=== PATIENT | male | born 1965 | race American Indian/Alaskan Native ===

== ENCOUNTER 2017-04-18 12:26 | Emergency (ER) | payer SELFPAY ==
[2017-04-18 13:23] LABS: Hematocrit 31.4 % (35.5-45.6); Hemoglobin 10.7 gm/dl (11.8-15.2); Mean Corpuscular HGB Conc 34 % (32-34); Mean Corpuscular Hemoglobin 33 pg (28-32); Mean Corpuscular Volume 96 fl (84-94); Platelet Count 244 K/mm3 (140-440); Red Blood Count 3.29 M/mm3 (3.65-5.03); Red Cell Distribution Width 13.6 % (13.2-15.2)
[2017-04-18 13:35] LABS: BUN/Creatinine Ratio 14; Blood Urea Nitrogen 13 mg/dL (9-20); Calcium 9.1 mg/dL (8.4-10.2); Hemolysis Index 1
[2017-04-18 15:12] LABS: Bilirubin,Urine NEG (Negative); Blood,Urine NEG (Negative); Color,Urine Yellow (Yellow); Hyaline Casts,Urine 1 /LPF; Mucus,Urine FEW /HPF; Nitrite,Urine NEG (Negative); Protein,Urine <15 mg/dL mg/dL (Negative); Urobilinogen,Urine < 2.0 mg/dL (<2.0)
[2017-04-18] MEDS ORDERED: TORADOL IV ONE (16:36)
[2017-04-18] MEDS ORDERED: DILAUDID IV ONE (16:37)
--- NOTE | 2017-04-18 16:37 | Emergency Department Report ---
ED General Adult HPI - General Chief complaint: Pain General Stated complaint: BODY NUMBNESS,TINGLING Time Seen by Provider: 04/18/17 16:27 Source: patient, RN notes reviewed, old records reviewed Mode of arrival: Ambulatory Limitations: No Limitations - History of Present Illness Initial comments: This is a 51-year-old male. He is previously evaluated by me in the past. Has a past medical history of gout, hypertension. He does not have a primary care doctor. Patient presents to the ER with a complaint of nontraumatic left wrist pain, right foot pain, and left foot pain. This has been present since Wednesday. His pain is sharp and achy. It is associated with some swelling but no redness or fever. He reports that he ate heavy and spicy ribs a few days prior to the swelling and pain, and thinks that his gout is acting up in multiple joints. He denies headache, neck pain, chest pain, abdominal pain or shortness of breath. To me he makes no complaint of tingling, numbness, weakness, or change in sensation. Patient denies sore throat, rectal pain, urinary symptoms as well as skin rash. 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 Patient given hydromorphone in the past without issue. -: Gradual Location: left, right, upper extremity, lower extremity Radiation: non-radiation Quality: aching Consistency: constant Improves with: medication, rest Worsens with: movement Associated Symptoms: denies: confusion, chest pain, cough, diaphoresis, fever/ chills, headaches, loss of appetite, malaise, nausea/vomiting, rash, seizure, shortness of breath, syncope, weakness - Related Data Home Medications Medication Instructions Recorded Confirmed Last Taken Aspirin EC [Aspirin Enteric Coated 325 mg PO QDAY 08/22/14 08/22/14 08/19/14 TAB] Losartan [Cozaar] 50 mg PO QDAY 08/22/14 08/23/14 08/22/14 Labetalol 5 mg PO BID 08/23/14 08/23/14 08/23/14 Previous Rx's Medication Instructions Recorded Last Taken Type NIFEdipine XL [Procardia Xl] 30 mg PO QDAY #30 tablet 06/03/14 Unknown Rx Meclizine [Antivert] 25 mg PO TID PRN #30 tablet 06/13/14 08/22/14 Rx Ketorolac [Toradol] 10 mg PO Q6H PRN #20 tablet 05/23/15 Unknown Rx oxyCODONE [Roxicodone TAB] 5 mg PO Q6HR PRN #10 tablet 05/23/15 Unknown Rx Acetaminophen [Tylenol Arthritis] 650 mg PO Q6HR PRN #30 tablet.er 04/18/17 Unknown Rx Ketorolac [Toradol] 10 mg PO Q6H PRN #20 tablet 04/18/17 Unknown Rx oxyCODONE [Roxicodone] 5 mg PO Q6HR PRN #15 tablet 04/18/17 Unknown Rx Allergies Allergy/AdvReac Type Severity Reaction Status Date / Time morphine Allergy Hives Verified 05/22/15 17:47 ED Review of Systems ROS: Stated complaint: BODY NUMBNESS,TINGLING Other details as noted in HPI ED Past Medical Hx - Past Medical History Hx Hypertension: Yes (FOR 2 MTHS) Hx Diabetes: Yes (FOR 5 YRS, NO MEDS) Hx Liver Disease: No Hx Renal Disease: No Hx Arthritis: Yes Hx Seizures: No Hx Asthma: No Additional medical history: GOUT - Surgical History Additional Surgical History: R. hand repair - Social History Smoking Status: Current Every Day Smoker Substance Use Type: Alcohol - Medications Home Medications: Home Medications Medication Instructions Recorded Confirmed Last Taken Type NIFEdipine XL [Procardia Xl] 30 mg PO QDAY #30 tablet 06/03/14 08/23/14 Unknown Rx Meclizine [Antivert] 25 mg PO TID PRN #30 tablet 06/13/14 08/23/14 08/22/14 Rx Aspirin EC [Aspirin Enteric Coated 325 mg PO QDAY 08/22/14 08/22/14 08/19/14 History TAB] Losartan [Cozaar] 50 mg PO QDAY 08/22/14 08/23/14 08/22/14 History Labetalol 5 mg PO BID 08/23/14 08/23/14 08/23/14 History Ketorolac [Toradol] 10 mg PO Q6H PRN #20 tablet 05/23/15 Unknown Rx oxyCODONE [Roxicodone TAB] 5 mg PO Q6HR PRN #10 tablet 05/23/15 Unknown Rx Acetaminophen [Tylenol Arthritis] 650 mg PO Q6HR PRN #30 tablet.er 04/18/17 Unknown Rx Ketorolac [Toradol] 10 mg PO Q6H PRN #20 tablet 04/18/17 Unknown Rx oxyCODONE [Roxicodone] 5 mg PO Q6HR PRN #15 tablet 04/18/17 Unknown Rx ED Physical Exam - General Limitations: No Limitations General appearance: alert, in no apparent distress - Head Head exam: Present: atraumatic, normocephalic - Eye Eye exam: Present: normal appearance, EOMI. Absent: nystagmus - ENT ENT exam: Present: normal exam, normal orophraynx, mucous membranes moist, normal external ear exam - Neck Neck exam: Present: normal inspection, full ROM - Respiratory Respiratory exam: Present: normal lung sounds bilaterally. Absent: respiratory distress - Cardiovascular Cardiovascular Exam: Present: normal rhythm, tachycardia, normal heart sounds. Absent: systolic murmur, diastolic murmur, rubs, gallop - GI/Abdominal GI/Abdominal exam: Present: soft, normal bowel sounds. Absent: distended, tenderness, guarding, rebound, rigid, pulsatile mass - Rectal Rectal exam: Present: deferred - Extremities Exam Extremities exam: Present: normal inspection, full ROM, tenderness (there is mild tenderness to the right lateral and medial malleolus. There is minimal swelling to the right ankle. There is no redness. Passive range of motion is painful, but intact. Active range of motion is intact on the right foot. Left wrist also mildly diffusely tender with swelling. Full range of motion actively to the wrist. The compartments are soft. 2+ pulses noted in the bilateral upper and lower extremities. Sensation intact to light touch, pinprick, proprioception in the bilateral upper and lower extremities.), normal capillary refill. Absent: pedal edema, joint swelling, calf tenderness - Back Exam Back exam: Present: normal inspection, full ROM. Absent: tenderness, CVA tenderness (R), paraspinal tenderness, vertebral tenderness - Neurological Exam Neurological exam: Present: alert, oriented X3, CN II-XII intact, normal gait, other (Extraocular movements intact. Tongue midline. No facial droop. Facial sensation intact to light touch in the V1, V2, V3 distribution bilaterally. 5 and 5 strength in 4 extremities.. Sensation is intact to light touch in 4 extremities.). Absent: motor sensory deficit - Psychiatric Psychiatric exam: Present: normal affect, normal mood - Skin Skin exam: Present: warm, dry, intact, normal color. Absent: rash ED Course Vital Signs 04/18/17 04/18/17 04/18/17 12:41 17:02 17:03 Temperature 98.2 F Pulse Rate 116 H 95 H Respiratory 18 18 18 Rate Blood Pressure 181/97 Blood Pressure 166/100 [Left] O2 Sat by Pulse 97 100 Oximetry - Reevaluation(s) Reevaluation #1: 04/18/17 18:06 Patient requesting colchicine. I instructed the patient that I did not think he would derive any therapeutic benefit from it, but he is fairly insistent that he has benefited from it in the past, even being out of the 72 hour window. ED Medical Decision Making - Lab Data Result diagrams: 04/18/17 13:06 04/18/17 13:06 Vital Signs 04/18/17 04/18/17 04/18/17 12:41 17:02 17:03 Temperature 98.2 F Pulse Rate 116 H 95 H Respiratory 18 Rate Blood Pressure 181/97 Blood Pressure 166/100 [Left] O2 Sat by Pulse 97 100 Oximetry Lab Results 04/18/17 04/18/17 04/18/17 Range/Units 13:06 13:06 13:06 WBC 10.4 (4.5-11.0) K/mm3 RBC 3.29 L (3.65-5.03) M/mm3 Hgb 10.7 L (11.8-15.2) gm/dl Hct 31.4 L (35.5-45.6) % MCV 96 H (84-94) fl MCH 33 H (28-32) pg MCHC 34 (32-34) % RDW 13.6 (13.2-15.2) % Plt Count 244 (140-440) K/mm3 Sodium 138 (137-145) mmol/L Potassium 4.1 (3.6-5.0) mmol/L Chloride 98.7 (98-107) mmol/L Carbon Dioxide 24 (22-30) mmol/L Anion Gap 19 mmol/L BUN 13 (9-20) mg/dL Creatinine 0.9 (0.8-1.5) mg/dL Estimated GFR > 60 ml/min BUN/Creatinine Ratio 14 % Glucose 124 H (75-100) mg/dL Uric Acid 5.5 (3.5-7.6) mg/dL Calcium 9.1 (8.4-10.2) mg/dL Urine Color (Yellow) Urine Turbidity (Clear) Urine pH (5.0-7.0) Ur Specific [place] (1.003-1.030) Urine Protein (Negative) mg/dL Urine Glucose (UA) (Negative) mg/dL Urine Ketones (Negative) mg/dL Urine Blood (Negative) Urine Nitrite (Negative) Urine Bilirubin (Negative) Urine Urobilinogen (<2.0) mg/dL Ur Leukocyte Esterase (Negative) Urine WBC (Auto) (0.0-6.0) /HPF Urine RBC (Auto) (0.0-6.0) /HPF U Epithel Cells (Auto) (0-13.0) /HPF Hyaline Casts /LPF Urine Mucus /HPF 04/18/17 Range/Units 14:58 WBC (4.5-11.0) K/mm3 RBC (3.65-5.03) M/mm3 Hgb (11.8-15.2) gm/dl Hct (35.5-45.6) % MCV (84-94) fl MCH (28-32) pg MCHC (32-34) % RDW (13.2-15.2) % Plt Count (140-440) K/mm3 Sodium (137-145) mmol/L Potassium (3.6-5.0) mmol/L Chloride (98-107) mmol/L Carbon Dioxide (22-30) mmol/L Anion Gap mmol/L BUN (9-20) mg/dL Creatinine (0.8-1.5) mg/dL Estimated GFR ml/min BUN/Creatinine Ratio % Glucose (75-100) mg/dL Uric Acid (3.5-7.6) mg/dL Calcium (8.4-10.2) mg/dL Urine Color Yellow (Yellow) Urine Turbidity Clear (Clear) Urine pH 5.0 (5.0-7.0) Ur Specific [place] 1.016 (1.003-1.030) Urine Protein <15 mg/dl (Negative) mg/dL Urine Glucose (UA) Neg (Negative) mg/dL Urine Ketones Neg (Negative) mg/dL Urine Blood Neg (Negative) Urine Nitrite Neg (Negative) Urine Bilirubin Neg (Negative) Urine Urobilinogen < 2.0 (<2.0) mg/dL Ur Leukocyte Esterase Neg (Negative) Urine WBC (Auto) 1.0 (0.0-6.0) /HPF Urine RBC (Auto) 1.0 (0.0-6.0) /HPF U Epithel Cells (Auto) 1.0 (0-13.0) /HPF Hyaline Casts 1 /LPF Urine Mucus Few /HPF - Medical Decision Making Differential diagnosis, including but not limited to: Polyarthritis, pseudo gout , pseudogout Assessment and plan: 51-year-old male with polyarthritis. There is no redness, pus or streaking. There is no fever. Has active and passive range of motion intact with soft compartments and intact pulses. Based on this history and physical exam, septic joint very unlikely, patient has no risk factors for septic joint, he has no mucous membrane symptoms and no rash. He is medicated with hydromorphone and Toradol, his tachycardia improved, and he is noted to be sleeping and resting comfortably in his stretcher. Patient was extensively counseled on need to avoid dietary triggers, and he will need to follow up with outpatient rheumatology. His hypertension improved, and he can follow up with an outpatient primary care doctor for this as well. Symptoms have been present for greater than 72 hours, therefore no indication for colchicine. Critical care attestation.: If time is entered above; I have spent that time in minutes in the direct care of this critically ill patient, excluding procedure time. ED Disposition Clinical Impression: Polyarthritis Disposition: [id number] TO HOME OR SELFCARE Is pt being admited?: No Does the pt Need Aspirin: No Condition: Good Instructions: Osteoarthritis (ED), Acute Gouty Arthritis (ED) Additional Instructions: Avoid consumption of heavy, spicy foods, alcohol, foods high in salt content. If taking oxycodone for pain, do not drive, consume alcohol, or make important decisions. Follow up with a primary care doctor or tax services specialist within the next 2 weeks for the multiple painful joints. Dr. Boyce is a local primary care doctor. For the patient's convenience, numerous other local rheumatology specialists have been listed. Please note that the patient's blood pressure was very elevated, and this needs to be followed up by primary care doctor within the next month. Long-term complications of hypertension and elevated blood pressure includes stroke, heart attack, disability, , paralysis, permanent loss of quality of life. He is return to the ER right away with hip pain, worsened pain, migration of pain, weakness, numbness, unsteady gait, intractable nausea or vomiting, confusion, inability to tolerate liquid feeds. Prescriptions: Acetaminophen [Tylenol Arthritis] 650 mg PO Q6HR PRN #30 tablet.er PRN Reason: Pain Ketorolac [Toradol] 10 mg PO Q6H PRN #20 tablet PRN Reason: Pain oxyCODONE [Roxicodone] 5 mg PO Q6HR PRN #15 tablet PRN Reason: Pain Referrals: PRIMARY CARE, [Primary Care Provider] - 3-5 Days IRMA BOYCE MD [Staff Physician] - 3-5 Days PRAMOD SPRINGER MD [Referring] - 3-5 Days KAYDEN REESE MD [Referring] - 3-5 Days MIYA TIAN MD [Referring] - 3-5 Days KEL JOAQUIN MD [Referring] - 3-5 Days TASHA WARE MD [Referring] - 3-5 Days IRINA BENTON DO [Referring] - 3-5 Days
[2017-04-18] MEDS ORDERED: COLCRYS PO ONE ×2 (17:00→18:06)
[2017-04-18 17:03] VITALS: BP 166/100
== END 2017-04-18 18:50 | disposition home or self-care (01) ==
LOC: ED 12:26
DX: M13.0 Polyarthritis, unspecified (principal); M10.9 Gout, unspecified; I10 Essential (primary) hypertension; E11.9 Type 2 diabetes mellitus without complications; F17.200 Nicotine dependence, unspecified, uncomplicated; Z88.5 Allergy status to narcotic agent
CPT/HCPCS: 36415; 80048; 81001; 84550; 85027; 96374; 96375; 99283; J1170; J1885

== ENCOUNTER 2017-09-10 05:14 | Emergency (ER) | payer SELFPAY ==
[2017-09-10 05:59] LABS: Basophils % (Auto) 0.6 % (0.0-1.8); Eosinophils # (Auto) 0.3 K/mm3 (0.0-0.4); Eosinophils % (Auto) 4.5 % (0.0-4.3); Hematocrit 34.3 % (35.5-45.6); Hemoglobin 11.5 gm/dl (11.8-15.2); Lymphocytes # (Auto) 2.8 K/mm3 (1.2-5.4); Lymphocytes % (Auto) 41.9 % (13.4-35.0); Mean Corpuscular HGB Conc 34 % (32-34); Mean Corpuscular Hemoglobin 32 pg (28-32); Mean Corpuscular Volume 96 fl (84-94); Monocytes # (Auto) 0.5 K/mm3 (0.0-0.8); Monocytes % (Auto) 6.8 % (0.0-7.3); Platelet Count 216 K/mm3 (140-440); Red Blood Count 3.57 M/mm3 (3.65-5.03); Red Cell Distribution Width 14.6 % (13.2-15.2)
[2017-09-10 06:04] LABS: Alanine Aminotransferase 24 units/L (7-56); Albumin 4.3 g/dL (3.9-5); BUN/Creatinine Ratio 12; Blood Urea Nitrogen 13 mg/dL (9-20); Calcium 9.3 mg/dL (8.4-10.2); Hemolysis Index 1; Lipase 51 units/L (13-60)
[2017-09-10 06:42] LABS: Bacteria,Urine 1+ /HPF (Negative); Bilirubin,Urine NEG (Negative); Blood,Urine NEG (Negative); Color,Urine Yellow (Yellow); Mucus,Urine FEW /HPF; Urobilinogen,Urine < 2.0 mg/dL (<2.0)
[2017-09-10] MEDS ORDERED: TETRACAINE 0.5% ONE (09:01)
[2017-09-10] MEDS ORDERED: FUL-GLO OP ONE ×2 (09:01→09:03)
[2017-09-10] MEDS ORDERED: TETRACAINE 0.5% OS ONE (09:03)
[2017-09-10] MEDS ORDERED: NORCO 5/325 PO ONE (09:04)
[2017-09-10] MEDS ORDERED: APRESOLINE IV ONE (09:04)
--- NOTE | 2017-09-10 09:15 | Emergency Department Report ---
HPI - General Chief Complaint: Abdominal Pain Time Seen by Provider: 09/10/17 08:53 - HPI HPI: 52-year-old male presents to the emergency department with 2 different complaints. First, the patient has a burning sensation and/or discomfort to the left eye and thinks that he got some wood in the eye yesterday. He was unloading some crates and some wood when he dropped it and he felt something go up into his eye at that time. He had some mild discomfort at the time but over night last night the pain intensified. He says he feels like he has difficulty closing his eye and there is some swelling to the eyelid. He denies any vision change, bleeding, discharge. The patient's second complaint is some left-sided abdominal pain and swelling. This has been going on since this morning. He denies any nausea, vomiting, fever, diarrhea, constipation or dysuria. He has not taken anything for her symptoms prior to presentation. Patient has a history of hypertension and diabetes but does not take any medications. He does present with very elevated blood pressure. No recent travel or sick contacts at home. He does not have a PCP. ED Past Medical Hx - Past Medical History Hx Hypertension: Yes (FOR 2 MTHS) Hx Diabetes: Yes (FOR 5 YRS, NO MEDS) Hx Liver Disease: No Hx Renal Disease: No Hx Arthritis: Yes Hx Seizures: No Hx Asthma: No Additional medical history: GOUT - Surgical History Additional Surgical History: R. hand repair - Social History Smoking Status: Current Every Day Smoker Substance Use Type: Alcohol - Medications Home Medications: Home Medications Medication Instructions Recorded Confirmed Last Taken Type NIFEdipine XL [Procardia Xl] 30 mg PO QDAY #30 tablet 06/03/14 08/23/14 Unknown Rx Meclizine [Antivert] 25 mg PO TID PRN #30 tablet 06/13/14 08/23/14 08/22/14 Rx Aspirin EC [Aspirin Enteric Coated 325 mg PO QDAY 08/22/14 08/22/14 08/19/14 History TAB] Losartan [Cozaar] 50 mg PO QDAY 08/22/14 08/23/14 08/22/14 History Labetalol 5 mg PO BID 08/23/14 08/23/14 08/23/14 History Ketorolac [Toradol] 10 mg PO Q6H PRN #20 tablet 05/23/15 Unknown Rx oxyCODONE [Roxicodone TAB] 5 mg PO Q6HR PRN #10 tablet 05/23/15 Unknown Rx Acetaminophen [Tylenol Arthritis] 650 mg PO Q6HR PRN #30 tablet.er 04/18/17 Unknown Rx Ketorolac [Toradol] 10 mg PO Q6H PRN #20 tablet 04/18/17 Unknown Rx oxyCODONE [Roxicodone] 5 mg PO Q6HR PRN #15 tablet 04/18/17 Unknown Rx Cephalexin [Keflex] 1,000 mg PO Q12HR #20 cap 09/10/17 Unknown Rx Erythromycin [Erythromycin Ophth 1 applicatio OS TID #1 tube 09/10/17 Unknown Rx Oint] HYDROcodone/ACETAMINOPHEN [[place] 1 each PO Q8H PRN #10 tablet 09/10/17 Unknown Rx 5-325 Tablet] ED Review of Systems ROS: Stated complaint: ABD PAIN Other details as noted in HPI Comment: All other systems reviewed and negative Constitutional: denies: chills, fever Eyes: eye pain. denies: eye discharge, vision change ENT: denies: ear pain, throat pain Respiratory: denies: cough, shortness of breath, wheezing Cardiovascular: denies: chest pain, palpitations Gastrointestinal: abdominal pain. denies: vomiting Genitourinary: denies: urgency, dysuria Musculoskeletal: denies: back pain, joint swelling, arthralgia Skin: denies: rash, lesions Neurological: denies: headache, weakness, paresthesias Physical Exam - Physical Exam Vital Signs: Vital Signs 09/10/17 09/10/17 09/10/17 05:24 08:50 08:58 Temperature 98.1 F Pulse Rate 100 H Respiratory 22 17 Rate Blood Pressure 174/115 O2 Sat by Pulse 100 99 98 Oximetry ED Course Vital Signs 09/10/17 09/10/17 09/10/17 05:24 08:50 08:58 Temperature 98.1 F Pulse Rate 100 H Respiratory 22 17 Rate Blood Pressure 174/115 O2 Sat by Pulse 100 99 98 Oximetry ED Medical Decision Making - Lab Data Result diagrams: 09/10/17 05:30 09/10/17 05:30 Critical care attestation.: If time is entered above; I have spent that time in minutes in the direct care of this critically ill patient, excluding procedure time. ED Disposition Clinical Impression: Left eye pain Abdominal pain Qualifiers: Abdominal location: unspecified location Qualified Code(s): R10.9 - Unspecified abdominal pain Hypertension Qualifiers: Hypertension type: essential hypertension Qualified Code(s): I10 - Essential ( primary) hypertension Disposition: TO HOME OR SELFCARE Is pt being admited?: No Condition: Stable Instructions: Hypertension (ED), Eye Pain (ED), Abdominal Pain (ED) Additional Instructions: Please follow up with a primary care physician regarding your elevated blood pressure and to establish care and get a physical examination done. I've also given your referral for a few different ophthalmologists to follow up regarding your left eye pain and vision. Return to the emergency Department with any worsening of your symptoms or any acute distress. Please try and stay away from foods that are high in salt, caffeinated products to help with your blood pressure. I'm starting you on a blood pressure medication called Norvasc/amlodipine that is to be taken once daily. Keep a blood pressure log. You have been prescribed a medication that is sedating and therefore should not be taken prior to driving, working, and responsible for children and in no way should be mixed with alcohol of any quantity. Prescriptions: Cephalexin [Keflex] 1,000 mg PO Q12HR #20 cap Erythromycin [Erythromycin Ophth Oint] 1 applicatio OS TID #1 tube HYDROcodone/ACETAMINOPHEN [[place] 5-325 Tablet] 1 each PO Q8H PRN #10 tablet PRN Reason: Pain , Severe (7-10) Referrals: MARILYN SALDAÑA MD [Staff Physician] - WENDY MATA MD [Staff Physician] - LEANNA ANNA ROY MD [Staff Physician] - 2-3 Days FLOR FREY MD [Staff Physician] - 2-3 Days [facility] [Outside] - 2-3 Days Time of Disposition: 12:02
[2017-09-10] MEDS ORDERED: ATIVAN ONE (10:11)
[2017-09-10] MEDS ORDERED: ATIVAN IV ONE (10:15)
--- NOTE | 2017-09-10 10:31 | Cat Scan Report ---
CT head without contrast: Axial images demonstrates normal intracranial anatomy.. The ventricles are normal in size, contour, and position. No focal lesions. No hemorrhage. No extra-axial collection. The visualized bones are unremarkable. Mild areas of mucoperiosteal thickening identified in the visualized posterior portion of the left maxillary sinus as well as in both ethmoid sinuses. Compared to the prior exam in May 2014 the maxillary inflammation appears slightly worse with no significant changes in the sphenoid sinuses. The intracranial findings are unchanged. Impression: 1. Normal intracranial scan 2. Chronic paranasal inflammatory changes.
--- NOTE | 2017-09-10 10:45 | Cat Scan Report ---
CT abdomen and pelvis with contrast: Left sided abdominal pain. Transverse images were obtained from the lower chest to the ischium following IV contrast administration. Coronal and sagittal 2-D reformatted images included. The visualized lung bases are clear. The abdominal organs appear unremarkable. There is a 13 mm circumscribed cyst in the superior right kidney. The urinary tract is not otherwise remarkable nor are the retroperitoneal organs. The abdominal aorta is normal in size and contour. The unopacified bowel and mesentery appear normal. The appendix is visualized. No inflammatory changes identified. No free fluid. Images of the pelvis are generally unremarkable. There is severe narrowing of the L4-5 disc with bony obliteration anteriorly and posteriorly at the articular margins. Severe degenerative disease is present involving the right hip with subchondral erosions. Lesser degenerative changes are noted in the left hip. Impressions: 1. No significant intra-abdominal disease identified. 2. Severe degenerative L4-5 and right hip changes.
[2017-09-10] MEDS ORDERED: ERYTHROMYCIN OPHTH OINT OU ONE (11:00)
[2017-09-10 11:10] LABS: Bilirubin,Urine NEG (Negative); Blood,Urine NEG (Negative); Color,Urine Straw (Yellow); Mucus,Urine FEW /HPF; Protein,Urine <15 mg/dL mg/dL (Negative); Urobilinogen,Urine < 2.0 mg/dL (<2.0); WBC,Urine < 1.0 /HPF (0.0-6.0)
[2017-09-10 11:17] LABS: Amphetamine Screen,Urine PRESUMPTIVE NEGATIVE; Benzodiazepines Screen,Urine PRESUMPTIVE NEGATIVE; Cannabinoid Screen,Urine PRESUMPTIVE NEGATIVE; Cocaine Screen,Urine PRESUMPTIVE NEGATIVE; Methadone Screen,Urine PRESUMPTIVE NEGATIVE; Opiate Screen,Urine PRESUMPTIVE NEGATIVE
[2017-09-10] MEDS ORDERED: TETRACAINE 0.5% OU ONE (11:44)
[2017-09-10 12:12] VITALS: BP 151/84
== END 2017-09-10 12:30 | disposition home or self-care (01) ==
LOC: ED 05:14
DX: H57.12 Ocular pain, left eye (principal); R10.9 Unspecified abdominal pain; I10 Essential (primary) hypertension; E11.9 Type 2 diabetes mellitus without complications; M19.90 Unspecified osteoarthritis, unspecified site; F17.200 Nicotine dependence, unspecified, uncomplicated; Z79.82 Long term (current) use of aspirin
CPT/HCPCS: 36415; 70450; 74177; 80053; 80307; 81001; 83690; 83735; 84443; 85025; 93005; 93010; 96374; 96375; 99285; J0360; J2060; Q9967

== ENCOUNTER 2018-04-01 19:52 | Inpatient (IN) | payer SELFPAY ==
[2018-04-01] MEDS ORDERED: ASPIRIN PO ONE (20:28)
[2018-04-01] MEDS ORDERED: DILAUDID IV ONE (20:45)
[2018-04-01] MEDS ORDERED: LOPRESSOR IV ONE (20:46)
--- NOTE | 2018-04-01 20:50 | Emergency Department Report ---
HPI - General Chief Complaint: Dizziness Time Seen by Provider: 04/01/18 20:32 - HPI HPI: 52-year-old male presents to the emergency department with complaint of a headache and some blurry vision along with some dizziness that started about 2 PM this afternoon. The dizziness is as if he will pass out but he has not had any episodes of passing out. The headache is towards the top of his head. He feels like it is difficult to focus with his vision. The patient also says that he had some chest pain earlier but the pain resolved but his chest still "feels funny." He was dropped off by some people at work to be seen. He did not take anything for her symptoms prior to presentation. No recent travel or sick contacts at home. The patient has a past medical history of hypertension, diet-controlled diabetes, gout. He does present with some elevated blood pressure and says he did not take his amlodipine today. He does not have a primary care physician. ED Past Medical Hx - Past Medical History Hx Hypertension: Yes (FOR 2 MTHS) Hx Diabetes: Yes (FOR 5 YRS, NO MEDS) Hx Liver Disease: No Hx Renal Disease: No Hx Arthritis: Yes Hx Seizures: No Hx Asthma: No Additional medical history: GOUT - Surgical History Past Surgical History?: Yes Additional Surgical History: R. hand repair - Social History Smoking Status: Current Every Day Smoker Substance Use Type: Alcohol - Medications Home Medications: Home Medications Medication Instructions Recorded Confirmed Last Taken Type amLODIPine [Norvasc] 5 mg PO DAILY #30 tab 09/10/17 04/01/18 Unknown Rx Multivit-Min/Iron Fum/Folic AC 1 each PO DAILY 04/01/18 04/01/18 Unknown History [Monocaps Tablet] ED Review of Systems ROS: Stated complaint: HBP Other details as noted in HPI Constitutional: denies: chills, fever Eyes: denies: eye pain, vision change ENT: denies: ear pain, throat pain Respiratory: denies: cough, shortness of breath Cardiovascular: chest pain. denies: palpitations Gastrointestinal: denies: abdominal pain, vomiting Genitourinary: denies: dysuria, discharge Musculoskeletal: denies: back pain, arthralgia Skin: denies: rash, lesions Neurological: headache, other (dizziness, lightheadedness) Physical Exam - Physical Exam Vital Signs: Vital Signs 04/01/18 19:58 Temperature 97.8 F Pulse Rate 112 H Respiratory 18 Rate Blood Pressure 187/92 O2 Sat by Pulse 99 Oximetry Physical Exam: GENERAL: The patient is well-developed well-nourished. HEENT: Normocephalic. Atraumatic. Patient has moist mucous membranes. EYES: Extraocular motions are intact. Pupils are equal and reactive to light bilaterally. NECK: Supple. Trachea is midline. CHEST/LUNGS: Clear to auscultation. There is no respiratory distress noted. HEART/CARDIOVASCULAR: Regular. There is mild tachycardia. There is no obvious murmur. ABDOMEN: Abdomen is soft, nontender. Patient has normal bowel sounds. There is no abdominal distention. SKIN: Skin is warm and dry. NEURO: The patient is awake, alert, and oriented. The patient is cooperative. The patient has no focal neurologic deficits. The patient has normal speech. Cranial nerves II through XII grossly intact. No pronator drift. MUSCULOSKELETAL: There is no tenderness or deformity. There is no limitation range of motion. There is no evidence of acute injury. ED Course Vital Signs 04/01/18 19:58 Temperature 97.8 F Pulse Rate 112 H Respiratory 18 Rate Blood Pressure 187/92 O2 Sat by Pulse 99 Oximetry ED Medical Decision Making - Lab Data Result diagrams: 04/01/18 20:46 04/01/18 20:46 - EKG Data -: EKG Interpreted by Me EKG shows normal: sinus rhythm, axis, intervals, QRS complexes, ST-T waves Rate: tachycardia (104 bpm) - EKG Data When compared to previous EKG there are: no significant change Interpretation: unchanged when compared t (09/11/17) - Radiology Data Radiology results: report reviewed, image reviewed interpreted by me: Chest x-ray does not show any pneumothorax, pleural effusion, pneumonia or obvious focal consolidation. PROCEDURE: CT HEAD/BRAIN WO CON TECHNIQUE: Computerized tomography of the head was performed without contrast material. HISTORY: headache COMPARISON: No prior studies are available for comparison. FINDINGS: Skull and scalp: Normal. Paranasal sinuses: Normal. Ventricles and subarachnoid spaces: Normal. Cerebrum: No evidence of hemorrhage, acute infarction or mass . Cerebellum and brainstem: No evidence of hemorrhage, acute infarction or mass. Vasculature: Normal. Comments: None. IMPRESSION: Normal Examination Transcribed By: [facility] [place] Dictated By: GABRIELLA SHAH Electronically Authenticated By: GABRIELLA SHAH Signed Date/Time: 04/01/18 2428 PROCEDURE: CT ANGIO CHEST TECHNIQUE: Computerized tomographic angiography of the chest was performed after the IV injection of iodinated nonionic contrast including image processing. The image data was postprocessed using 2- dimensional multiplanar reformatted (MPR) and 3-dimensional (MIP and/or volume rendered) techniques. HISTORY: CP, elevated dimer COMPARISON: No prior studies are available for comparison. FINDINGS: Heart and pericardium: Normal. Thoracic aorta: Normal. Pulmonary vasculature: Normal. Lymph nodes: No enlarged thoracic lymph nodes. Lungs: Normal. Pleural space: No effusion, thickening, or pneumothorax. Musculoskeletal structures: No significant abnormality. Upper abdominal structures: No significant abnormality. IMPRESSION: Normal Examination - Medical Decision Making Patient presents with a headache, blurry vision, dizziness/lightheadedness, and some atypical chest discomfort. EKG does not show any ST elevation SD. CT of the head did not show any bleed, shift, mass, ischemia, or any other acute process. Chest x-ray did not show any pleural effusions, pneumonia, focal consolidation, pneumothorax, or any other acute process. Patient's labs have been unremarkable including negative troponins 2 thus far, but he did have a slightly elevated and equivocal d-dimer. For this reason a CT angiography of the chest was done that did not show any pulmonary embolism, dissection, or any acute process. The patient says that he has never had a stress test or full cardiac workup. The patient will be admitted to the hospital for further evaluation and treatment and was except for admission by the hospitalist, Dr. Bya. - Differential Diagnosis SD, PE, costochondritis, migraine, subarachnoid, tension headache, vertigo Critical Care Time: No Critical care attestation.: If time is entered above; I have spent that time in minutes in the direct care of this critically ill patient, excluding procedure time. ED Disposition Clinical Impression: Atypical chest pain, Dizziness Headache Qualifiers: Headache type: unspecified Headache chronicity pattern: unspecified pattern Intractability: not intractable Qualified Code(s): R51 - Headache Hypertension Qualifiers: Hypertension type: essential hypertension Qualified Code(s): I10 - Essential (primary) hypertension Disposition: OP ADMIT IP TO THIS HOSP Is pt being admited?: Yes Condition: Fair Instructions: Chest Pain (ED), Hypertension (ED) Referrals: ZORAN HOOD MD [Primary Care Provider] - 3-5 Days Time of Disposition: 23:45 - Assessment Assessment Interval: Baseline - Level of Consciousness 1a. Level of Consciousness: alert/keenly responsive - LOC Questions 1b. LOC Questions: answers both correctly - LOC Command 1c. LOC Commands: performs tasks correctly - Best Gaze 2. Best Gaze: normal - Visual 3. Visual: no visual loss - Facial Palsy 4. Facial Palsy: normal symmetrical movement - Motor Arm 5b. Motor Arm Right: no drift 5a. Motor Arm Left: no drift - Motor Leg 6b. Motor Leg Right: no drift 6a. Motor Leg Left: no drift - Limb Ataxia 7. Limb Ataxia: absent - Sensory 8. Sensory: normal - Best Language 9. Best Language: no aphasia - Dysarthria 10. Dysarthria: normal - Extinction and Inattention 11. Extinction/Inattention: no abnormality - Scoring Total Score: 0 Stroke Severity: No Stroke Symptoms
[2018-04-01 21:03] LABS: Basophils % (Auto) 0.4 % (0.0-1.8); Eosinophils % (Auto) 0.1 % (0.0-4.3); Hematocrit 30.8 % (35.5-45.6); Hemoglobin 10.9 gm/dl (11.8-15.2); Lymphocytes # (Auto) 0.9 K/mm3 (1.2-5.4); Lymphocytes % (Auto) 13.8 % (13.4-35.0); Mean Corpuscular HGB Conc 36 % (32-34); Mean Corpuscular Volume 100 fl (84-94); Monocytes # (Auto) 0.5 K/mm3 (0.0-0.8); Monocytes % (Auto) 7.7 % (0.0-7.3); Platelet Count 172 K/mm3 (140-440); Red Blood Count 3.08 M/mm3 (3.65-5.03); Red Cell Distribution Width 13.2 % (13.2-15.2)
[2018-04-01 21:15] LABS: BUN/Creatinine Ratio 10; Blood Urea Nitrogen 11 mg/dL (9-20); Calcium 8.9 mg/dL (8.4-10.2); Hemolysis Index 255
[2018-04-01 21:30] LABS: INR 0.88 (0.87-1.13)
[2018-04-01 21:31] LABS: Partial Thromboplastin Time 27.1 Sec. (24.2-36.6)
--- NOTE | 2018-04-01 22:12 | XRay Report ---
FINAL REPORT PROCEDURE: XR CHEST 1V AP TECHNIQUE: Chest radiograph anteroposterior view. CPT 34447 HISTORY: Chest pain COMPARISON: No prior studies are available for comparison. FINDINGS: Heart: Normal. Mediastinum/Vessels: Normal. Lungs/Pleural space: No infiltrate, effusion, or pneumothorax. Bony thorax: No acute osseous abnormality. Life support devices: None. IMPRESSION: No radiographic evidence of acute cardiopulmonary abnormality.
--- NOTE | 2018-04-01 22:44 | Cat Scan Report ---
FINAL REPORT PROCEDURE: CT HEAD/BRAIN WO CON TECHNIQUE: Computerized tomography of the head was performed without contrast material. HISTORY: headache COMPARISON: No prior studies are available for comparison. FINDINGS: Skull and scalp: Normal. Paranasal sinuses: Normal. Ventricles and subarachnoid spaces: Normal. Cerebrum: No evidence of hemorrhage, acute infarction or mass . Cerebellum and brainstem: No evidence of hemorrhage, acute infarction or mass. Vasculature: Normal. Comments: None. IMPRESSION: Normal Examination
[2018-04-01] MEDS ORDERED: ANTIVERT PO ONE (22:48)
--- NOTE | 2018-04-01 22:48 | Cat Scan Report ---
FINAL REPORT PROCEDURE: CT ANGIO CHEST TECHNIQUE: Computerized tomographic angiography of the chest was performed after the IV injection of iodinated nonionic contrast including image processing. The image data was postprocessed using 2-dim ensional multiplanar reformatted (MPR) and 3-dimensional (MIP and/or volume rendered) techniques. HISTORY: CP, elevated dimer COMPARISON: No prior studies are available for comparison. FINDINGS: Heart and pericardium: Normal. Thoracic aorta: Normal. Pulmonary vasculature: Normal. Lymph nodes: No enlarged thoracic lymph nodes. Lungs: Normal. Pleural space: No effusion, thickening, or pneumothorax. Musculoskeletal structures: No significant abnormality. Upper abdominal structures: No significant abnormality. IMPRESSION: Normal Examination
[2018-04-01] MEDS ORDERED: TYLENOL PO PRN (23:30)
[2018-04-01] MEDS ORDERED: ZOFRAN IV PRN (23:30)
[2018-04-01] MEDS ORDERED: APRESOLINE IV PRN (23:30)
[2018-04-01] MEDS ORDERED: SODIUM CHLORIDE FLUSH SYRINGE 10 ML IV PRN (23:30)
[2018-04-01] MEDS ORDERED: ATIVAN IV PRN ×2 (23:33)
--- NOTE | 2018-04-01 23:35 | History and Physical Report ---
History of Present Illness Date of examination: 04/01/18 History of present illness: 52-year-old man with a history of hypertension, diabetes comes to the emergency room with complaints of chest pain that started today. Pain is in the left chest which she described as something stuck inside his chest,intermittent every 30 minutes, intensity 5/10, no radiation. Admits to nausea vomiting, shortness of breath, no diaphoresis or palpitation. Also complained of dizziness, hasn't taken his antihypertensive in 3 days Review of systems Constitutional: no weight loss, chills, fever Ears, eyes, nose, mouth and throat: no nasal congestion, no nasal discharge, no sinus pressure, no vision change, no red eye. Neck: No neck pain or rigidity. Cardiovascular: no palpitations Respiratory: no cough, shortness of breath Gastrointestinal: no hematochezia, abdominal pain Genitourinary : no frequency , no hematuria Musculoskeletal: no joint swelling or muscle ache Integumentary: no rash, no pruritis Neurological: no parathesias, no focal weakness Endocrine: no cold or heat intolerance, no polyuria or polydipsia Hematologic/Lymphatic: no easy bruising, no easy bleeding, no gland swelling Allergic/Immunologic: no urticaria, no angioedema. PAST MEDICAL HISTORY: hypertension, diabetes PAST SURGICAL HISTORY: hand SOCIAL HISTORY: Drinks 4 beers/night, no drugs, +tobacco FAMILY HISTORY: Hypertension Medications and Allergies Allergies Allergy/AdvReac Type Severity Reaction Status Date / Time morphine Allergy Hives Verified 09/10/17 05:23 Home Medications Medication Instructions Recorded Confirmed Last Taken Type RX: Multivit-Min/Iron Fum/Folic AC 1 each PO DAILY 04/01/18 04/01/18 Unknown History [Monocaps Tablet] RX: LORazepam [Ativan] 1 mg PO BID PRN #20 tablet 04/03/18 Unknown Rx RX: amLODIPine [Norvasc] 5 mg PO DAILY #30 tab 04/03/18 Unknown Rx RX: amLODIPine [Norvasc] 10 mg PO DAILY #30 tablet 04/03/18 Unknown Rx Active Meds: Active Medications Acetaminophen (Tylenol) 650 mg PO Q4H PRN PRN Reason: Pain MILD(1-3)/Fever >100.5/ROMERO Enoxaparin Sodium (Lovenox) 30 mg SUB-Q QDAY ROSY Hydralazine HCl (Apresoline) 5 mg IV Q6H PRN PRN Reason: Hypertension Ondansetron HCl (Zofran) 4 mg IV Q8H PRN PRN Reason: Nausea And Vomiting Sodium Chloride (Sodium Chloride Flush Syringe 10 Ml) 10 ml IV BID ROSY Sodium Chloride (Sodium Chloride Flush Syringe 10 Ml) 10 ml IV PRN PRN PRN Reason: LINE FLUSH Exam - Physical Exam Narrative exam: General Apperance: The patient lying in bed, breathing comfortable HEENT: Normocephalic, atraumatic. Pupils equally round and reactive to light, EOMI, no sclericterus or JVD or thyromegaly or nodule. , no carotid bruit, mucous membranes moist, no exudate or erythema Heart: S1-S2, regular is rhythm Lungs: Clear to auscultation bilaterally, breathing comfortable Abdomen: Positive bowel sounds, soft, nontender, nondistended, no organomegaly Extremities: No edema cyanosis clubbing Skin: no rash, nodule, warm and dry Neuro: cranial nerves 2-12 intact, speech is fluent, motor/sensory intact - Constitutional Vitals: Temp Pulse Resp BP Pulse Ox 97.8 F 95 H 19 168/88 97 04/01/18 19:58 04/01/18 22:45 04/01/18 22:45 04/01/18 22:45 04/01/18 22:45 Results - Labs CBC & Chem 7: 04/03/18 02:58 04/03/18 02:58 Labs: Abnormal lab results 04/01/18 04/01/18 04/01/18 Range/Units 20:46 20:46 20:46 RBC 3.08 L (3.65-5.03) M/mm3 Hgb 10.9 L (11.8-15.2) gm/dl Hct 30.8 L (35.5-45.6) % MCV 100 H (84-94) fl MCH 36 H (28-32) pg MCHC 36 H (32-34) % [place] % (Auto) 7.7 H (0.0-7.3) % Lymph # 0.9 L (1.2-5.4) K/mm3 Seg Neutrophils % 78.0 H (40.0-70.0) % D-Dimer 374.68 H (0-234) ng/mlDDU Sodium 134 L (137-145) mmol/L Chloride 94.5 L (98-107) mmol/L Carbon Dioxide 16 L (22-30) mmol/L Glucose 109 H (75-100) mg/dL - Imaging and Cardiology Chest x-ray: report reviewed CT scan - chest: report reviewed CT Scan - head: report reviewed Assessment and Plan Assessment hypertensive urgency, malignant Chest pain, rule out ACS diabetes Dizziness secondary to the above Alcohol abuse Plan Admit to medicine Obtain stress test, Percocet for pain IV hydralazibne for blood pressure control Start [facility] protocol DVT prophylaxis
[2018-04-02 00:02] LABS: Creatine Kinase MB 3.4 ng/mL (0.0-4.0)
[2018-04-02] MEDS ORDERED: NACL 0.45% 1000 ML 1,000 ML IV SCH (01:00)
[2018-04-02 02:25] LABS: Basophils % (Auto) 0.2 % (0.0-1.8); Eosinophils # (Auto) 0.1 K/mm3 (0.0-0.4); Eosinophils % (Auto) 1.2 % (0.0-4.3); Hematocrit 33.1 % (35.5-45.6); Hemoglobin 11.1 gm/dl (11.8-15.2); Lymphocytes # (Auto) 1.2 K/mm3 (1.2-5.4); Lymphocytes % (Auto) 21.6 % (13.4-35.0); Mean Corpuscular HGB Conc 34 % (32-34); Mean Corpuscular Volume 103 fl (84-94); Monocytes # (Auto) 0.5 K/mm3 (0.0-0.8); Monocytes % (Auto) 9.4 % (0.0-7.3); Platelet Count 169 K/mm3 (140-440); Red Blood Count 3.22 M/mm3 (3.65-5.03); Red Cell Distribution Width 13.7 % (13.2-15.2)
[2018-04-02 02:47] LABS: BUN/Creatinine Ratio 9; Blood Urea Nitrogen 10 mg/dL (9-20); Calcium 8.7 mg/dL (8.4-10.2); Hemolysis Index 13
[2018-04-02 06:53] LABS: Creatine Kinase MB 3.3 ng/mL (0.0-4.0)
[2018-04-02] MEDS ORDERED: LEXISCAN IV ONE ×2 (08:08)
[2018-04-02] MEDS ORDERED: LOVENOX SUB-Q SCH (10:00)
[2018-04-02] MEDS: LOVENOX SUB-Q SCH (10:10)
[2018-04-02] MEDS: SODIUM CHLORIDE FLUSH SYRINGE 10 ML IV SCH ×2 (10:10→21:09)
--- NOTE | 2018-04-02 10:49 | Treadmill Report ---
PROCEDURE: IV Lexiscan nuclear myocardial perfusion imaging test. The patient is a 52-year-old -[place] gentleman with history of hypertension, diabetes mellitus and chest pain is scheduled for a pharmacological stress testing for evaluation of chest pain. Baseline EKG showed sinus rhythm within normal limits. The patient received 0.4 mg of IV regadenoson by injection. This patient tolerated iv Regadenoson without any significant side effects. No EKG changes were noted. The patient had resting myocardial perfusion imaging using technetium pyrophosphate scan prior to pharmacological stress and subsequent post pharmacological stress, the patient had myocardial perfusion images performed. Gated stress images were obtained. Following findings were noted. 1. Baseline EKG showed S.R,WNL. 2.No EKG changes to suggest ischemia. 2.No chest pain. Myocardial perfusion images at rest and at stress showed no perfusion defects. Normal distribution of the tracer was noted. Gated studies showed normal size left ventricle with normal wall motion and normal wall thickening. Calculated ejection fraction of 66%. Transient ischemic dilation ratio was found to be 1.22. FINAL IMPRESSION: 1. Negative for angina. 2. Negative for ischemia on the EKG. 3. Normal myocardial perfusion imaging with normal ejection fraction. Left ventricular systolic function of 66% by calculation. [facility]# [id number] COLT/LUIS DANIEL TABARES
[2018-04-02] MEDS ORDERED: NORVASC PO SCH (11:00)
--- NOTE | 2018-04-02 12:27 | Progress Note ---
Assessment and Plan - Atypical chest pain Continue with oxygen and nitroglycerin aspirin and multivitamin. Lexiscan stress test was done today. Results was Normal Optimize blood pressure and discharge -Hypertensive urgency, malignant Optimize blood pressure control and discharge - T2DM A1c, lipid panel Scale insulin Urine microalbumin Consistent carbohydrates diet - Alcohol abuse Counseling on alcohol cessation was done Comments [facility] protocol - DVT prophylaxis with Lovenox Subjective Date of service: 04/02/18 Principal diagnosis: atypical chest pain, hypertensive emergency, T2DM, alcohol abuse Interval history: Has occasional chest pain. Objective - Exam Narrative Exam: Constitutional: Well-nourished well-developed. In no distress Head: Normocephalic atraumatic Eyes: Pupils are equal round and reactive to light Nose: No enlarged turbinates, no septal deviation. Mouth: Moist mucous membranes. Neck: Supple no thyromegaly. No bruit. No JVD Heart: Regular rate and rhythm, S1-S2 normal. No rubs murmurs or gallop Lungs: Clear to auscultation bilaterally. no rales or rhonchi Abdomen: Soft, nontender. Bowel sound are present. Extremities: No edema, no cyanosis, no clubbing. Neuro: Alert oriented Oriented x3. No focal sensory or motor deficit. Skin: No rashes or hyperpigmented spots Musculoskeletal system: No joint pain or swelling Hematological: No petechia or subcutanous hemorrhages. Immunological: No multiple septic spots on the skin Lymphatic: No generalized lymphadenopathy Psychiatry: Euthymic. Calm. - Constitutional Vitals: Vital Signs - 12hr 04/02/18 04/02/18 04/02/18 04:43 07:29 07:53 Temperature 98.4 F 98.2 F Pulse Rate 87 88 86 Respiratory 16 16 Rate Blood Pressure 145/71 158/84 O2 Sat by Pulse 100 99 Oximetry 04/02/18 04/02/18 04/02/18 08:58 09:01 09:24 Temperature Pulse Rate Respiratory Rate Blood Pressure 166/85 169/92 154/86 O2 Sat by Pulse Oximetry 04/02/18 04/02/18 04/02/18 09:25 09:26 09:27 Temperature Pulse Rate Respiratory Rate Blood Pressure 152/83 162/88 162/89 O2 Sat by Pulse Oximetry 04/02/18 04/02/18 04/02/18 09:28 09:29 09:30 Temperature Pulse Rate Respiratory Rate Blood Pressure 158/87 164/88 162/89 O2 Sat by Pulse Oximetry 04/02/18 11:39 Temperature 98.3 F Pulse Rate 92 H Respiratory 18 Rate Blood Pressure 158/93 O2 Sat by Pulse 100 Oximetry - Labs CBC & Chem 7: 04/02/18 02:11 04/02/18 02:11 Labs: Abnormal lab results 04/01/18 04/01/18 04/01/18 Range/Units 20:46 20:46 20:46 RBC 3.08 L (3.65-5.03) M/mm3 Hgb 10.9 L (11.8-15.2) gm/dl Hct 30.8 L (35.5-45.6) % MCV 100 H (84-94) fl MCH 36 H (28-32) pg MCHC 36 H (32-34) % [place] % (Auto) 7.7 H (0.0-7.3) % Lymph # 0.9 L (1.2-5.4) K/mm3 Seg Neutrophils % 78.0 H (40.0-70.0) % D-Dimer 374.68 H (0-234) ng/mlDDU Sodium 134 L (137-145) mmol/L Chloride 94.5 L (98-107) mmol/L Carbon Dioxide 16 L (22-30) mmol/L Glucose 109 H (75-100) mg/dL Total Creatine Kinase (55-170) units/L 04/01/18 04/02/18 04/02/18 Range/Units 22:55 02:11 02:11 RBC 3.22 L (3.65-5.03) M/mm3 Hgb 11.1 L (11.8-15.2) gm/dl Hct 33.1 L (35.5-45.6) % MCV 103 H (84-94) fl MCH 35 H (28-32) pg MCHC (32-34) % [place] % (Auto) 9.4 H (0.0-7.3) % Lymph # (1.2-5.4) K/mm3 Seg Neutrophils % (40.0-70.0) % D-Dimer (0-234) ng/mlDDU Sodium 134 L (137-145) mmol/L Chloride (98-107) mmol/L Carbon Dioxide 21 L (22-30) mmol/L Glucose 142 H (75-100) mg/dL Total Creatine Kinase 337 H (55-170) units/L 04/02/18 Range/Units 05:28 RBC (3.65-5.03) M/mm3 Hgb (11.8-15.2) gm/dl Hct (35.5-45.6) % MCV (84-94) fl MCH (28-32) pg MCHC (32-34) % [place] % (Auto) (0.0-7.3) % Lymph # (1.2-5.4) K/mm3 Seg Neutrophils % (40.0-70.0) % D-Dimer (0-234) ng/mlDDU Sodium (137-145) mmol/L Chloride (98-107) mmol/L Carbon Dioxide (22-30) mmol/L Glucose (75-100) mg/dL Total Creatine Kinase 327 H (55-170) units/L
[2018-04-03 00:25] LABS: Chol/HDL Ratio 1.52 %
[2018-04-03 03:56] LABS: Basophils % (Auto) 0.7 % (0.0-1.8); Eosinophils # (Auto) 0.2 K/mm3 (0.0-0.4); Eosinophils % (Auto) 4.4 % (0.0-4.3); Hematocrit 32.3 % (35.5-45.6); Hemoglobin 10.9 gm/dl (11.8-15.2); Lymphocytes # (Auto) 1.4 K/mm3 (1.2-5.4); Lymphocytes % (Auto) 28.5 % (13.4-35.0); Mean Corpuscular HGB Conc 34 % (32-34); Mean Corpuscular Volume 102 fl (84-94); Monocytes # (Auto) 0.5 K/mm3 (0.0-0.8); Monocytes % (Auto) 9.8 % (0.0-7.3); Platelet Count 179 K/mm3 (140-440); Red Blood Count 3.17 M/mm3 (3.65-5.03); Red Cell Distribution Width 13.5 % (13.2-15.2)
[2018-04-03 04:13] LABS: Alanine Aminotransferase 38 units/L (7-56); BUN/Creatinine Ratio 9; Blood Urea Nitrogen 10 mg/dL (9-20); Calcium 8.4 mg/dL (8.4-10.2); Hemolysis Index 8
[2018-04-03] MEDS ORDERED: MULTIVIT MIN PO SCH (10:00)
[2018-04-03] MEDS ORDERED: IRON FUM PO SCH (10:00)
[2018-04-03] MEDS ORDERED: THERAGRAN-M Tab PO SCH (10:00)
[2018-04-03] MEDS ORDERED: NORVASC PO SCH (10:00)
[2018-04-03] MEDS ORDERED: FOLIC AC PO SCH (10:00)
[2018-04-03] MEDS: LOVENOX SUB-Q SCH (10:11)
[2018-04-03] MEDS: SODIUM CHLORIDE FLUSH SYRINGE 10 ML IV SCH (10:12)
--- NOTE | 2018-04-03 10:48 | Discharge Summary ---
Providers - Providers Date of Admission: 04/01/18 23:30 Date of discharge: 04/03/18 Attending physician: DIMITRIS DRUMMOND none Primary care physician: ZORAN HOOD Hospitalization Reason for admission: chest pain Condition: Fair Pertinent studies: CTA chest that was normal CXR that was normal Lexiscan test that was normal Procedures: none Hospital course: 52-year-old man with a history of hypertension, diabetes comes to the emergency room with complaints of chest pain that started today. Pain is in the left chest which she described as something stuck inside his chest, intermittent every 30 minutes, intensity 5/10, no radiation. Admits to nausea vomiting, shortness of breath, no diaphoresis or palpitation. Also complained of dizziness, hasn't taken his antihypertensive in [address] angiogram of the chest was done. This was negative for any PE. CT of the head was also normal. Serial cardiac enzymes were normal. Stress test was done. This was normal. Had hypertension while on admission. This was controlled with oral antihypertensive medication. Patient will be discharged today to follow up with [facility] [place] as he has no primary care physician. Condition on discharge was satisfactory Disposition: DC-01 TO HOME OR SELFCARE Time spent for discharge: 35 min - Discharge Diagnoses (1) Dizziness Status: Acute (2) Headache Status: Acute Qualifiers: Headache type: unspecified Headache chronicity pattern: unspecified pattern Intractability: not intractable Qualified Code(s): R51 - Headache (3) Hypertension Status: Acute Qualifiers: Hypertension type: essential hypertension Qualified Code(s): I10 - Essential (primary) hypertension (4) Abdominal pain Status: Acute Qualifiers: Abdominal location: unspecified location Qualified Code(s): R10.9 - Unspecified abdominal pain Comment: not explained by this exam Core Measure Documentation - Palliative Care Palliative Care/ Comfort Measures: Not Applicable - Core Measures Any of the following diagnoses?: none Exam - Physical Exam Narrative exam: Constitutional: Well-nourished well-developed.In no distress Head: Normocephalic atraumatic Eyes: Pupils are equal round and reactive to light Nose: No enlarged turbinates, no septal deviation. Mouth: Moist mucous membranes. Neck: Supple no thyromegaly. No bruit. No JVD Heart: Regular rate and rhythm, S1-S2 normal. No rubs murmurs or gallop Lungs: Clear to auscultation bilaterally. no rales or rhonchi Abdomen: Soft, nontender. Bowel sound are present. Extremities: No edema, no cyanosis, no clubbing. Neuro: Alert oriented Oriented x3. No focal sensory or motor deficit. Skin: No rashes or hyperpigmented spots Musculoskeletal system: No joint pain or swelling Hematological: No petechia or subcutanous hemorrhages. Immunological: No multiple septic spots on the skin Lymphatic: No generalized lymphadenopathy Psychiatry: Euthymic. Calm. - Constitutional Vitals: Temp Pulse Resp BP Pulse Ox 98.1 F 95 H 18 162/87 100 04/03/18 08:01 04/03/18 08:17 04/03/18 08:01 04/03/18 08:01 04/03/18 10:00 Plan Activity: advance as tolerated, fall precautions Weight Bearing Status: Non-Weight Bearing Diet: low salt Follow up with: ZORAN HOOD MD [Primary Care Provider] - 3-5 Days Prescriptions: amLODIPine [Norvasc] 5 mg PO DAILY #30 tab amLODIPine [Norvasc] 10 mg PO DAILY #30 tablet LORazepam [Ativan] 1 mg PO BID PRN #20 tablet PRN Reason: Agitation
[2018-04-03 12:49] VITALS: BP 162/87
== END 2018-04-03 13:45 | disposition home or self-care (01) | DRG 305 ==
LOC: ED 19:52 → 4A 23:30
PROVIDERS: ADMIT Internal Medicine; ATTEND Family Medicine
DX: I16.1 Hypertensive emergency (principal); R42 Dizziness and giddiness; I16.0 Hypertensive urgency; R51 Headache; R07.89 Other chest pain; I10 Essential (primary) hypertension; E11.9 Type 2 diabetes mellitus without complications; M10.9 Gout, unspecified; R10.9 Unspecified abdominal pain; M19.90 Unspecified osteoarthritis, unspecified site; F17.210 Nicotine dependence, cigarettes, uncomplicated; F10.10 Alcohol abuse, uncomplicated; Z82.49 Family history of ischemic heart disease and other diseases of the circulatory system; Z88.5 Allergy status to narcotic agent
CPT/HCPCS: 36415; 70450; 71045; 71275; 78452; 80048; 80053; 80061; 82550; 82553; 82962; 83036; 84484; 85025; 85379; 85610; 85730; 93005; 93010; 93017; G0378; A9502; J1170; J1650; J2785; Q9967

== ENCOUNTER 2018-04-17 15:41 | Emergency (ER) | payer SELFPAY ==
--- NOTE | 2018-04-17 15:48 | Emergency Department Report ---
Blank Doc - Documentation Documentation: This is a 52-year-old male that presents with neck and head pain x2 days ago. Patient stated had a ground level fall. Denies any other trauma or injuries. Denies any other complaints. This initial assessment diagnostic orders/clinical plan/treatment(s) is/are subject to change based on patient's health status, clinical progression and re- assessment by fellow clinical providers in the ED. Further treatment and workup at subsequent clinical providers discretion. Patient/guardians urged not to elope from ED s their condition may be serious if not clinically assessed and managed. Initial orders include: 1-patient sent to [facility] for further evaluation and treatment. 2- CT head/cervical spine ordered.
[2018-04-17] MEDS ORDERED: TYLENOL PO ONE (19:53)
--- NOTE | 2018-04-17 19:59 | Emergency Department Report ---
ED Fall HPI - General Chief Complaint: Neck Pain/Injury Stated Complaint: NECK PAIN Time Seen by Provider: 04/17/18 15:46 Source: patient Mode of arrival: Ambulatory - History of Present Illness Initial Comments: 52-year-old -Irish male presents to the emergency room for complaint of neck pain in right leg swelling after left leg Giving out. Patient states that 2 days ago his left leg gave out and he fell into a table struck his head. Patient said this the first time this has happened. He denies any shortness of breathing. Denies any chest pain denies any dizziness prior to fall. He reports his a past medical history of diabetes is not taking any medication for that, hypertension is currently on amlodipine 5 mg and inverted with no recent problems. Patient reports taking Tylenol last dose this morning does not help. Patient denies having a primary care provider states he goes to [place] for refills on his lip pressure medicine. Patient also complains of right sided abdominal pain with swelling. Patient states he can turn his neck left as it increases pain. Patient states when he turns his neck he feels something clicked. Patient reports that his right leg has pain and swelling. MD Complaint: fall -: days(s) (2) Fall From: standing When Fall Occurred: # days [employer] (2) Place Fall Occurred: home Prolonged Down Time?: no Symptoms Prior to Fall: none Location: head, neck Location - Extremities: Right: Leg Severity: severe Severity scale (0 -10): 9 Quality: aching Context: other (left leg just gave out) Associated Symptoms: neck pain, abdominal pain (left lower quadrant). denies: chest paint, shortness of breath, hematuria - Related Data Home Medications Medication Instructions Recorded Confirmed Last Taken Multivit-Min/Iron Fum/Folic AC 1 each PO DAILY 04/01/18 04/01/18 Unknown [Monocaps Tablet] Previous Rx's Medication Instructions Recorded Last Taken Type LORazepam [Ativan] 1 mg PO BID PRN #20 tablet 04/03/18 Unknown Rx amLODIPine [Norvasc] 5 mg PO DAILY #30 tab 04/03/18 Unknown Rx amLODIPine [Norvasc] 10 mg PO DAILY #30 tablet 04/03/18 Unknown Rx Ibuprofen [Motrin 800 MG tab] 800 mg PO Q8HR PRN #30 tablet 04/17/18 Unknown Rx Allergies Allergy/AdvReac Type Severity Reaction Status Date / Time morphine Allergy Hives Verified 09/10/17 05:23 ED Review of Systems ROS: Stated complaint: NECK PAIN Other details as noted in HPI Comment: All other systems reviewed and negative Constitutional: denies: chills, fever Eyes: denies: eye pain, eye discharge, vision change Respiratory: denies: cough, shortness of breath, wheezing Cardiovascular: denies: chest pain, palpitations Musculoskeletal: joint swelling (right knee, ), arthralgia (neck pain), myalgia Neurological: denies: headache, weakness, paresthesias Psychiatric: denies: anxiety, depression Hematological/Lymphatic: denies: easy bleeding, easy bruising ED Past Medical Hx - Past Medical History Previous Medical History?: Yes Hx Hypertension: Yes (FOR 2 MTHS) Hx Diabetes: Yes (FOR 5 YRS, NO MEDS) Hx Liver Disease: No Hx Renal Disease: No Hx Arthritis: Yes Hx Seizures: No Hx Asthma: No Additional medical history: GOUT - Surgical History Past Surgical History?: Yes Additional Surgical History: R. hand repair - Social History Smoking Status: Current Every Day Smoker Substance Use Type: Alcohol, Prescribed - Medications Home Medications: Home Medications Medication Instructions Recorded Confirmed Last Taken Type Multivit-Min/Iron Fum/Folic AC 1 each PO DAILY 04/01/18 04/01/18 Unknown History [Monocaps Tablet] LORazepam [Ativan] 1 mg PO BID PRN #20 tablet 04/03/18 Unknown Rx amLODIPine [Norvasc] 5 mg PO DAILY #30 tab 04/03/18 Unknown Rx amLODIPine [Norvasc] 10 mg PO DAILY #30 tablet 04/03/18 Unknown Rx Ibuprofen [Motrin 800 MG tab] 800 mg PO Q8HR PRN #30 tablet 04/17/18 Unknown Rx ED Physical Exam - General Limitations: No Limitations General appearance: alert, in no apparent distress - Head Head exam: Present: atraumatic, normocephalic - Eye Eye exam: Present: EOMI - ENT ENT exam: Present: mucous membranes moist - Neck Neck exam: Present: tenderness, full ROM - Respiratory Respiratory exam: Present: normal lung sounds bilaterally. Absent: respiratory distress - Cardiovascular Cardiovascular Exam: Present: regular rate, normal rhythm. Absent: systolic murmur, diastolic murmur, rubs, gallop - GI/Abdominal GI/Abdominal exam: Present: soft, tenderness (left mid abd), normal bowel sounds. Absent: distended - Expanded Lower Extremity Exam Right Knee exam: Present: full ROM, tenderness, swelling Lower Leg exam: Present: tenderness, swelling, Michael's sign Ankle exam: Present: normal inspection Foot/Toe exam: Present: normal inspection - Back Exam Back exam: Present: normal inspection, full ROM - Neurological Exam Neurological exam: Present: alert, oriented X3 - Psychiatric Psychiatric exam: Present: normal affect, normal mood - Skin Skin exam: Present: warm, dry, intact, normal color. Absent: rash ED Course Vital Signs 04/17/18 04/17/18 15:46 20:05 Temperature 98 F Pulse Rate 106 H Respiratory 18 18 Rate Blood Pressure 172/98 O2 Sat by Pulse 100 Oximetry ED Medical Decision Making - Radiology Data Radiology results: report reviewed Critical care attestation.: If time is entered above; I have spent that time in minutes in the direct care of this critically ill patient, excluding procedure time. ED Disposition Clinical Impression: Elevated d-dimer, Pain and swelling of right lower extremity Fall Qualifiers: Encounter type: initial encounter Qualified Code(s): W19.XXXA - Unspecified fall, initial encounter Disposition: DC-01 TO HOME OR SELFCARE Is pt being admited?: No Does the pt Need Aspirin: No Condition: Stable Instructions: Arthralgia (ED) Additional Instructions: Please take pain medication as prescribed. Your ultrasound of the right lower leg was negative for any clots. I recommend she follow up with the primary care provider I have listed their information below for your convenience. All other x-rays were negative. Prescriptions: Ibuprofen [Motrin 800 MG tab] 800 mg PO Q8HR PRN #30 tablet PRN Reason: Pain , Severe (7-10) Referrals: [facility] [Other] - 3-5 Days RADHA KENNEDY [Staff Physician] - 3-5 Days Forms: Work/School Release Form(ED)
[2018-04-18 00:35] VITALS: BP 160/89
--- NOTE | 2018-04-19 08:20 | Cat Scan Report ---
FINAL REPORT EXAM: CT HEAD/BRAIN WO CON HISTORY: head/neck pain TECHNIQUE: Standard unenhanced CT of the head at 5.0 millimeter axial increments. PRIORS: CT head 04/01/2018 FINDINGS: The ventricular system is normal in size and configuration. There is no evidence for parenchymal volu me loss. There is no evidence for mass lesion, mass effect, midline shift, acute intracranial hemorrhage, or a cute ischemia/ infarction. No evidence for acute skull fracture is seen. No abnormality in the overlying scalp soft tissues is seen. Visualized paranasal sinuses demonstrates mild mucosal thickening in the left sphenoid sinus, [facility] IMPRESSION: No acute intracranial process noted. No change.
--- NOTE | 2018-04-19 16:43 | Cat Scan Report ---
FINAL REPORT EXAM: CT CERVICAL SPINE WO CON HISTORY: head/neck pain TECHNIQUE: Standard CT cervical spine obtained at 2.5 mm axial increments. Coronal and sagittal rec onstruction was also performed. PRIORS: None. FINDINGS: The vertebral bodies are intact. There is no evidence for acute fracture. There is no evidence for paravertebral soft tissue swelling. There is severe disc space narrowing at C6-C7 with spurring anteriorly and posteriorly. There is a gr avrind 1 mild anterolisthesis of C6 on C7 and grade 1, mild retrolisthesis of C5 on C6. Facet joint dege nerative changes are present bilaterally at C6-C7 and to the left at C2-C3. incidental atherosclerotic calcification of the right internal carotid artery is noted. IMPRESSION: 1. no acute abnormality of the cervical spine. 2. Severe disc space narrowing at C6-C7 3. Mild anterolisthesis of C6 on C7 and retrolisthesis of C5 on C6 are likely degenerative. 4. Facet joint degenerative changes.
--- NOTE | 2018-04-21 10:09 | Cat Scan Report ---
FINAL REPORT EXAM: CT ABDOMEN PELVIS WO CON HISTORY: fall with left side abd pain and swelling TECHNIQUE: Standard unenhanced CT of the abdomen and pelvis. Coronal and sagittal reconstruction was also performed. PRIORS: None. FINDINGS: Within the abdomen, the liver, spleen, pancreas, gallbladder, adrenal glands, and kidneys are unremar kable. No evidence for retroperitoneal or pelvic lymphadenopathy is seen. The bowel loops have belle l caliber. No soft tissue mass, fluid collection, inflammatory change, or free air is seen within the abdomen or pelvis. The appendix is normal. Scattered diverticuli are seen throughout the distal half of the colon. Within the pelvis, the bladder is unremarkable. The prostate is normal. No evidence for mass or lymph adenopathy is seen in the pelvis. Images through the upper abdomen include the lung bases which are expanded and clear. Bony structures show severe disc space narrowing L4-L5. Severe vpsa-[id number] joint space narrowing in the right superior hip joint is seen with subchondral cyst formation and sclerosis on both sides of t he joint. There is mild narrowing of the left hip joint. IMPRESSION: 1. no acute intra-abdominal process noted. 2. Diverticulosis 3. Severe cfkx-qp-[id number] joint space narrowing related to osteoarthritis in the right hip
--- NOTE | 2018-04-27 10:14 | Vascular Lab Report ---
FINAL REPORT EXAM: VL VENOUS DUPLEX LE RT HISTORY: right leg swelling with pain positive d-dimer TECHNIQUE: Ultrasound examination of the right lower extremity was performed to evaluate for DVT. PRIORS: None. FINDINGS: The common femoral, greater saphenous, femoral, and popliteal veins are well visualized and easily co mpressible throughout with good color flow. Augmentation is normal at multiple levels from the poplit eal to the common femoral vein levels. Examination of the calf veins demonstrate good visualization and compressibility of the peroneal and posterior tibial veins with good color flow throughout. Two normal appearing lymph nodes in the right groin are noted. IMPRESSION: No evidence for DVT identified in the right lower extremity.
== END 2018-04-18 00:36 | disposition home or self-care (01) ==
LOC: ED 15:41
DX: R79.1 Abnormal coagulation profile (principal); M79.604 Pain in right leg; R22.41 Localized swelling, mass and lump, right lower limb
CPT/HCPCS: 36415; 70450; 72125; 74176; 85379

== ENCOUNTER 2018-05-01 18:47 | Emergency (ER) | payer OTHER ==
[2018-05-01 20:04] LABS: Bilirubin,Urine NEG (Negative); Blood,Urine SM (Negative); Color,Urine Colorless (Yellow); Urobilinogen,Urine < 2.0 mg/dL (<2.0)
[2018-05-01 20:13] LABS: Basophils % (Auto) 0.6 % (0.0-1.8); Eosinophils % (Auto) 0.2 % (0.0-4.3); Hematocrit 33.5 % (35.5-45.6); Hemoglobin 11.7 gm/dl (11.8-15.2); Lymphocytes # (Auto) 1.4 K/mm3 (1.2-5.4); Lymphocytes % (Auto) 22.4 % (13.4-35.0); Mean Corpuscular HGB Conc 35 % (32-34); Mean Corpuscular Volume 101 fl (84-94); Monocytes # (Auto) 0.5 K/mm3 (0.0-0.8); Monocytes % (Auto) 8.5 % (0.0-7.3); Platelet Count 209 K/mm3 (140-440); Red Blood Count 3.31 M/mm3 (3.65-5.03); Red Cell Distribution Width 14.2 % (13.2-15.2)
[2018-05-01] MEDS ORDERED: TORADOL IV ONE (20:13)
[2018-05-01] MEDS ORDERED: NACL 0.9% 1000 ML 1,000 ML IV ONE (20:13)
[2018-05-01] MEDS ORDERED: ZOFRAN IV ONE (20:13)
--- NOTE | 2018-05-01 20:19 | Emergency Department Report ---
ED Abdominal Pain HPI - General Chief Complaint: Nausea/Vomiting/Diarrhea Stated Complaint: HEADACHE Time Seen by Provider: 05/01/18 19:24 Source: patient Mode of arrival: Ambulatory Limitations: No Limitations - History of Present Illness Initial Comments: 53-year-old male presents to the ED with complaint of left flank pain radiating across the entire lower abdomen, nausea, vomiting, diarrhea, fever since this morning. MD Complaint: abdominal pain -: This morning Location: L flank Radiation: LLQ, RLQ, suprapubic Migration to: no migration Severity: moderate Severity scale (0 -10): 6 Quality: sharp Consistency: constant Improves With: nothing Worsens With: nothing Associated Symptoms: nausea, vomiting, diarrhea, fever. denies: dysuria, hematuria - Related Data Home Medications Medication Instructions Recorded Confirmed Last Taken Multivit-Min/Iron Fum/Folic AC 1 each PO DAILY 04/01/18 04/01/18 Unknown [Monocaps Tablet] Previous Rx's Medication Instructions Recorded Last Taken Type LORazepam [Ativan] 1 mg PO BID PRN #20 tablet 04/03/18 Unknown Rx amLODIPine [Norvasc] 5 mg PO DAILY #30 tab 04/03/18 Unknown Rx amLODIPine [Norvasc] 10 mg PO DAILY #30 tablet 04/03/18 Unknown Rx Ibuprofen [Motrin 800 MG tab] 800 mg PO Q8HR PRN #30 tablet 04/17/18 Unknown Rx Dicyclomine [Bentyl] 20 mg PO QID PRN #20 tablet 05/01/18 Unknown Rx Promethazine [Phenergan TAB] 25 mg PO Q6HR PRN #20 tab 05/01/18 Unknown Rx Allergies Allergy/AdvReac Type Severity Reaction Status Date / Time morphine Allergy Hives Verified 09/10/17 05:23 ED Review of Systems ROS: Stated complaint: HEADACHE Other details as noted in HPI Comment: All other systems reviewed and negative Constitutional: chills, fever Gastrointestinal: abdominal pain, nausea, vomiting, diarrhea Genitourinary: frequency Musculoskeletal: back pain Neurological: headache ED Past Medical Hx - Past Medical History Hx Hypertension: Yes (FOR 2 MTHS) Hx Diabetes: Yes (FOR 5 YRS, NO MEDS) Hx Liver Disease: No Hx Renal Disease: No Hx Arthritis: Yes Hx Seizures: No Hx Asthma: No Additional medical history: GOUT - Surgical History Additional Surgical History: R. hand repair - Social History Smoking Status: Current Every Day Smoker Substance Use Type: Alcohol, Prescribed - Medications Home Medications: Home Medications Medication Instructions Recorded Confirmed Last Taken Type Multivit-Min/Iron Fum/Folic AC 1 each PO DAILY 04/01/18 04/01/18 Unknown History [Monocaps Tablet] LORazepam [Ativan] 1 mg PO BID PRN #20 tablet 04/03/18 Unknown Rx amLODIPine [Norvasc] 5 mg PO DAILY #30 tab 04/03/18 Unknown Rx amLODIPine [Norvasc] 10 mg PO DAILY #30 tablet 04/03/18 Unknown Rx Ibuprofen [Motrin 800 MG tab] 800 mg PO Q8HR PRN #30 tablet 04/17/18 Unknown Rx Dicyclomine [Bentyl] 20 mg PO QID PRN #20 tablet 05/01/18 Unknown Rx Promethazine [Phenergan TAB] 25 mg PO Q6HR PRN #20 tab 05/01/18 Unknown Rx ED Physical Exam - General Limitations: No Limitations General appearance: alert, in no apparent distress - Head Head exam: Present: atraumatic, normocephalic - Eye Eye exam: Present: normal appearance - ENT ENT exam: Present: mucous membranes moist - Neck Neck exam: Present: normal inspection - Respiratory Respiratory exam: Present: normal lung sounds bilaterally. Absent: respiratory distress - Cardiovascular Cardiovascular Exam: Present: regular rate, normal rhythm - GI/Abdominal GI/Abdominal exam: Present: soft, tenderness (mild diffuse tenderness, worse in LLQ/suprapubic). Absent: distended - Extremities Exam Extremities exam: Present: normal inspection - Back Exam Back exam: Present: paraspinal tenderness (bilateral lower lumbar) - Neurological Exam Neurological exam: Present: alert, oriented X3 - Psychiatric Psychiatric exam: Present: normal affect, normal mood - Skin Skin exam: Present: warm, dry, intact, normal color. Absent: rash ED Course Vital Signs 05/01/18 05/01/18 05/01/18 19:49 20:47 20:49 Temperature 98.1 F Pulse Rate 93 H Respiratory 18 18 20 Rate Blood Pressure 179/72 [Right] O2 Sat by Pulse 100 Oximetry 05/01/18 05/01/18 21:17 23:15 Temperature 98.6 F Pulse Rate 85 Respiratory 18 18 Rate Blood Pressure 147/87 [Right] O2 Sat by Pulse 100 Oximetry ED Medical Decision Making - Lab Data Result diagrams: 05/01/18 19:58 05/01/18 19:58 - Radiology Data Radiology results: report reviewed, image reviewed - Medical Decision Making 53-year-old male with a one-day history of abdominal pain, vomiting, and diarrhea. Patient reported subjective fever and chills, however, patient afebrile here in ED. Labs unremarkable. CT abdomen and pelvis negative for any acute findings. Patient likely with viral gastroenteritis. Symptoms controlled. IV fluids given. Patient felt much better at this time. Will discharge her with prescription for Bentyl, Phenergan. Return precautions given. Outpatient follow-up advised. - Differential Diagnosis gastroentritis, diverticulitis, kidney stone, UTI, pyelonephritis Critical care attestation.: If time is entered above; I have spent that time in minutes in the direct care of this critically ill patient, excluding procedure time. ED Disposition Clinical Impression: Gastroenteritis Disposition: DC-01 TO HOME OR SELFCARE Is pt being admited?: No Condition: Stable Instructions: Gastroenteritis (ED), Acute Nausea and Vomiting (ED), Acute Diarrhea (ED), Abdominal Pain (ED) Prescriptions: Dicyclomine [Bentyl] 20 mg PO QID PRN #20 tablet PRN Reason: abdominal pain Promethazine [Phenergan TAB] 25 mg PO Q6HR PRN #20 tab PRN Reason: Nausea Referrals: ENDER REESE MD [Primary Care Provider] - 3-5 Days [facility] [Provider Group] - 3-5 Days Time of Disposition: 23:27
[2018-05-01 21:04] LABS: Alanine Aminotransferase 21 units/L (7-56); Albumin 4.5 g/dL (3.9-5); BUN/Creatinine Ratio 13; Blood Urea Nitrogen 13 mg/dL (9-20); Hemolysis Index 0
--- NOTE | 2018-05-01 21:47 | Cat Scan Report ---
CT ABDOMEN PELVIS W CON CLINICAL INDICATION: Male, 53 years of age. left flank pain COMPARISON: CT of the abdomen and pelvis from August 2017. Images are available for review. The report is not available. TECHNIQUE: Contiguous axial images were obtained. This CT exam was performed using one or more of th e following dose reduction techniques: automated exposure control, adjustment of the mA and/or kV acc ording to patient size, or use of iterative reconstruction technique. Additional sagittal and coronal reformatted images were obtained. IV contrast administered per institution protocol. Images are subm itted for interpretation. FINDINGS: Mild subsegmental atelectasis of the dependent portions of the lungs. Tiny hiatal hernia. D iffuse fatty infiltration of the liver with more prominent focal fatty infiltration along the falcifo rm ligament. Liver is normal in size measuring 22 cm in axial dimension. No calcified gallstones or b iliary dilatation. Homogeneous enhancement of the spleen and pancreas. No adrenal mass. 1.5 cm mid right renal cyst. 5 mm left renal cyst. No suspicious solid renal lesion. No hydronephrosi s. Probable 7 mm cyst superior right kidney. No perinephric fat stranding. Aorta and IVC are normal i n caliber. Mild to moderate calcified plaque along the aorta. Urinary bladder and prostate gland are grossly unremarkable. There are few pelvic phleboliths. The appendix is normal in caliber. The majority of bowel loops are relatively decompressed. No apple asymmetric wall thickening or fat stranding. The appendix is normal in caliber. Mild/moderate diverti culosis of the colon. No acute diverticulitis. Lumbar vertebral body heights preserved. Moderate focal degenerative changes L4-L5 level. Bony pelvis is grossly intact. IMPRESSION: 1. No focal inflammatory changes of the abdomen and pelvis. 2. Mild to moderate diverticulosis of the colon. No acute diverticulitis. This document is electronically signed by Royce Peterson DO., May 01 2018 09:45:17 PM ET
[2018-05-01] MEDS ORDERED: REGLAN IV ONE (22:28)
[2018-05-01] MEDS ORDERED: BENADRYL IV ONE (22:28)
[2018-05-01 23:25] VITALS: BP 147/87
== END 2018-05-01 23:57 | disposition home or self-care (01) ==
LOC: ED 18:47
DX: K52.9 Noninfective gastroenteritis and colitis, unspecified (principal); R11.2 Nausea with vomiting, unspecified; I10 Essential (primary) hypertension; E11.9 Type 2 diabetes mellitus without complications; M10.9 Gout, unspecified; F17.200 Nicotine dependence, unspecified, uncomplicated; Z88.5 Allergy status to narcotic agent
CPT/HCPCS: 36415; 74177; 80053; 81001; 83690; 85025; 93005; 93010; 96361; 96374; 96375; 99285; J1200; J1885; J2405; J2765; J7030; Q9967

== ENCOUNTER 2018-07-31 13:21 | Inpatient (IN) | payer OTHER ==
--- NOTE | 2018-07-31 13:33 | Emergency Department Report ---
Blank Doc - Documentation Documentation: 53 y o male presents to Ed cc of diziness x today states he had an episode of black tarry stool and brownish vomitting states last etoh was 2 days ago has shakes labs ordered main side eval
[2018-07-31 14:09] LABS: Basophils % (Auto) 0.3 % (0.0-1.8); Eosinophils # (Auto) 0.1 K/mm3 (0.0-0.4); Eosinophils % (Auto) 1.5 % (0.0-4.3); Hematocrit 24.1 % (35.5-45.6); Hemoglobin 8.4 gm/dl (11.8-15.2); Lymphocytes # (Auto) 1.5 K/mm3 (1.2-5.4); Lymphocytes % (Auto) 24.2 % (13.4-35.0); Mean Corpuscular HGB Conc 35 % (32-34); Mean Corpuscular Volume 105 fl (84-94); Monocytes # (Auto) 0.4 K/mm3 (0.0-0.8); Monocytes % (Auto) 6.5 % (0.0-7.3); Platelet Count 216 K/mm3 (140-440); Red Blood Count 2.29 M/mm3 (3.65-5.03)
[2018-07-31 14:20] LABS: INR 0.96 (0.87-1.13)
[2018-07-31 14:21] LABS: Partial Thromboplastin Time 25.8 Sec. (24.2-36.6)
[2018-07-31 14:30] LABS: Alanine Aminotransferase 13 units/L (7-56); Albumin 3.7 g/dL (3.9-5); BUN/Creatinine Ratio 38; Blood Urea Nitrogen 42 mg/dL (9-20); Hemolysis Index 5
--- NOTE | 2018-07-31 15:57 | Cat Scan Report ---
PROCEDURE: CT HEAD/BRAIN WO CON TECHNIQUE: Computerized tomography of the head was performed without contrast material. CT DOSE LENGTH PRODUCT: 805.4 mGycm HISTORY: right sided numbness/right sided weakness COMPARISONS: 04/01/2018 . FINDINGS: No CT evidence of intracranial mass, hemorrhage, acute territorial infarction, or hydrocephalus. Intr acranial arteries are symmetric in density. Calvarium is intact. There is trace left ethmoid and left sphenoid sinus mucosal thickening. Mastoids are aerated. IMPRESSION: No CT evidence of acute intracranial abnormality . This document is electronically signed by Cele Ro MD., July 31 2018 04:56:20 PM ET
[2018-07-31] MEDS ORDERED: SUBLIMAZE IV ONE (16:14)
[2018-07-31] MEDS ORDERED: PEPCID IV ONE (16:14)
[2018-07-31] MEDS ORDERED: PROTONIX IV ONE ×2 (16:14→22:59)
[2018-07-31] MEDS ORDERED: NACL 0.9% 500 ML 500 ML IV ONE (16:14)
--- NOTE | 2018-07-31 16:17 | Emergency Department Report ---
ED General Adult HPI - General Chief complaint: Dizziness Stated complaint: DIZZY/(R) LEG WEAK Time Seen by Provider: 07/31/18 13:30 Source: patient, RN notes reviewed, old records reviewed Mode of arrival: Ambulatory Limitations: Physical Limitation - History of Present Illness Initial comments: This is a 53-year-old gentleman. I evaluated this patient in the past. He has a history of gout and hypertension and intermittent alcohol consumption. The patient presents to the emergency room today with multiple complaints. His first complaint is weakness, dizziness, black tarry stool, and defecation of blood. He believes that he is vomiting blood as well. This is associated with abdominal pain. Symptoms are present since yesterday. They're constant. They worse on palpation of the abdomen, and attempting to eat or drink. The patient endorses secondary complaint of right lower extremity weakness and "dragging my right leg." The patient states this is been going on since he woke up this morning. This is basically at 6:00 in the morning. This is constant. He denies headache, neck pain, chest pain. He denies other extremity weakness or numbness, but indicates that he feels globally weak. He also endorses urinary discomfort, and may have dysuria. He is not certain. The patient endorses that he does not consume systemic anticoagulation. -: Gradual Location: abdomen, right, lower extremity Severity scale (0 -10): 0 Consistency: other Improves with: other Worsens with: other Associated Symptoms: other - Related Data Home Medications Medication Instructions Recorded Confirmed Last Taken Multivit-Min/Iron Fum/Folic AC 1 each PO DAILY 04/01/18 04/01/18 Unknown [Monocaps Tablet] Previous Rx's Medication Instructions Recorded Last Taken Type LORazepam [Ativan] 1 mg PO BID PRN #20 tablet 04/03/18 Unknown Rx amLODIPine [Norvasc] 5 mg PO DAILY #30 tab 04/03/18 Unknown Rx amLODIPine [Norvasc] 10 mg PO DAILY #30 tablet 04/03/18 Unknown Rx Ibuprofen [Motrin 800 MG tab] 800 mg PO Q8HR PRN #30 tablet 04/17/18 Unknown Rx Dicyclomine [Bentyl] 20 mg PO QID PRN #20 tablet 05/01/18 Unknown Rx Promethazine [Phenergan TAB] 25 mg PO Q6HR PRN #20 tab 05/01/18 Unknown Rx Allergies Allergy/AdvReac Type Severity Reaction Status Date / Time morphine Allergy Hives Verified 07/31/18 13:23 ED Review of Systems ROS: Stated complaint: DIZZY/(R) LEG WEAK Other details as noted in HPI Constitutional: malaise, weakness Eyes: denies: eye discharge ENT: denies: epistaxis Respiratory: denies: cough Cardiovascular: denies: chest pain Gastrointestinal: abdominal pain, nausea, vomiting, melena. denies: hematochezia Genitourinary: dysuria. denies: testicular pain Musculoskeletal: arthralgia Skin: denies: lesions Neurological: weakness, numbness, paresthesias, abnormal gait ED Past Medical Hx - Past Medical History Hx Hypertension: Yes (FOR 2 MTHS) Hx Diabetes: Yes (FOR 5 YRS, NO MEDS) Hx Liver Disease: No Hx Renal Disease: No Hx Arthritis: Yes Hx Seizures: No Hx Asthma: No Additional medical history: GOUT - Surgical History Additional Surgical History: R. hand repair - Social History Smoking Status: Current Every Day Smoker Substance Use Type: Alcohol - Medications Home Medications: Home Medications Medication Instructions Recorded Confirmed Last Taken Type Multivit-Min/Iron Fum/Folic AC 1 each PO DAILY 04/01/18 04/01/18 Unknown History [Monocaps Tablet] LORazepam [Ativan] 1 mg PO BID PRN #20 tablet 04/03/18 Unknown Rx amLODIPine [Norvasc] 5 mg PO DAILY #30 tab 04/03/18 Unknown Rx amLODIPine [Norvasc] 10 mg PO DAILY #30 tablet 04/03/18 Unknown Rx Ibuprofen [Motrin 800 MG tab] 800 mg PO Q8HR PRN #30 tablet 04/17/18 Unknown Rx Dicyclomine [Bentyl] 20 mg PO QID PRN #20 tablet 05/01/18 Unknown Rx Promethazine [Phenergan TAB] 25 mg PO Q6HR PRN #20 tab 05/01/18 Unknown Rx ED Physical Exam - General Limitations: Physical Limitation General appearance: alert, anxious - Head Head exam: Present: atraumatic, normocephalic - Eye Eye exam: Present: normal appearance, EOMI. Absent: nystagmus - ENT ENT exam: Present: normal exam, normal orophraynx, mucous membranes moist, normal external ear exam - Neck Neck exam: Present: normal inspection, full ROM. Absent: tenderness, meningismus - Respiratory Respiratory exam: Present: normal lung sounds bilaterally. Absent: respiratory distress - Cardiovascular Cardiovascular Exam: Present: normal rhythm, tachycardia, normal heart sounds. Absent: systolic murmur, diastolic murmur, rubs, gallop - GI/Abdominal GI/Abdominal exam: Present: soft, tenderness. Absent: distended, guarding, rebound, rigid, pulsatile mass - Rectal Rectal exam: Present: normal inspection, heme (+) stool, bloody stool, other (chaperoned by nurse Charles Sauceda). Absent: prostate enlargement - exam: Present: normal inspection, other (chaperoned by nurse Giles Sauceda) - Extremities Exam Extremities exam: Present: normal inspection, full ROM, other (2+ pulses noted in the bilateral upper, lower extremities. Compartments soft. No long bony tenderness. The pelvis is stable.). Absent: calf tenderness - Back Exam Back exam: Present: normal inspection, full ROM. Absent: tenderness, CVA tenderness (R), CVA tenderness (L), paraspinal tenderness, vertebral tenderness - Neurological Exam Neurological exam: Present: alert, oriented X3, motor sensory deficit (there is 4 out of 5 strength right lower extremity. Sensation is decreased to light touch right upper extremity, right lower extremity. There is 4 out of 5 strength right upper extremity.), other (there is no facial droop. Tongue is midline. The patient will not participate with extraocular movement examination. Visual acuity intact to finger counting, color perception and reading at a close distance. The tongue is midline. Hearing is grossly intact. The patient is speaking in full sentences. Decreased sensation subjectively to light touch in the right arm, right leg. I've out of 5 strength left arm, left leg.) - Psychiatric Psychiatric exam: Present: anxious - Skin Skin exam: Present: warm, dry, intact, normal color. Absent: rash ED Course Vital Signs 07/31/18 07/31/18 07/31/18 13:41 13:53 15:49 Temperature 98.2 F Pulse Rate 130 H 111 H Respiratory 18 16 Rate Blood Pressure 133/72 131/84 O2 Sat by Pulse 96 100 100 Oximetry 07/31/18 07/31/18 07/31/18 16:00 16:15 16:30 Temperature Pulse Rate 95 H 102 H Respiratory 11 L 11 L 14 Rate Blood Pressure 132/66 119/76 O2 Sat by Pulse 98 98 100 Oximetry 07/31/18 07/31/18 07/31/18 17:00 17:30 18:17 Temperature Pulse Rate 97 H Respiratory 19 19 Rate Blood Pressure 109/73 131/68 109/73 O2 Sat by Pulse 100 99 98 Oximetry - Reevaluation(s) Reevaluation #1: 07/31/18 16:47 Differential diagnosis, including not limited to: Upper GI bleed, symptomatic anemia, stroke, peripheral neuropathy Assessment and plan: 53-year-old gentleman with 2 complaints Complaint #1, vomiting blood, black stool. Has evidence of upper GI bleed, ma nifest by low hemoglobin, hematocrit, elevated blood urea nitrogen. He will be started on IV fluids, Pepcid and Protonix. Nothing by mouth after midnight. Discussed with gastroenterology, Dr. Buckner, who will follow in consultation and agrees with current plan. I do not see an indication for antibiotic therapy at this time, as the patient does not have a known history of liver disease or cirrhosis. Had some abdominal discomfort, CT scan of the abdomen and pelvis is pending at this time. We will also give the patient a pack red blood cell transfusion, given endorsement of neurologic symptoms. Complaint #2: Right lower extremity weakness and dragging leg. Patient presents with wake-up symptoms. He also has evidence of active GI bleed. NIH score of 3; one point for decreased sensation to light touch, 1 point for drift in the right arm, right leg. Given wake-up symptoms, evidence of active GI bleed, the patient is not a TPA candidate. Patient seen and evaluated by stroke neurology, Dr Ley, who agree with resuscitating and managing patient's primary GI bleed. They agree with pack red blood cell transfusion. They agree that the patient is unlikely to benefit from emergent CT angiogram, as presentation does not appear to be consistent with large vessel occlusion. Furthermore, patient requires emergent CT scan of the abdomen and pelvis with IV contrast given history of bleeding pain 07/31/18 16:48 07/31/18 17:28 Reevaluation #2: 07/31/18 19:19 Dr. Carrillo, Hospital physician, to admit to the medical service. Aspirin will be held given concern for upper GI bleed. 07/31/18 19:19 CT scan of the abdomen pelvis negative for significant acute disease. Incidental findings noted. ED Medical Decision Making - Lab Data Result diagrams: 07/31/18 13:53 07/31/18 13:53 Vital Signs 07/31/18 07/31/18 07/31/18 13:41 13:53 15:49 Temperature 98.2 F Pulse Rate 130 H 111 H Respiratory 18 16 Rate Blood Pressure 133/72 131/84 O2 Sat by Pulse 96 100 100 Oximetry 07/31/18 07/31/18 16:00 16:15 Temperature Pulse Rate 95 H Respiratory 11 L 11 L Rate Blood Pressure 132/66 O2 Sat by Pulse 98 98 Oximetry Lab Results 07/31/18 07/31/18 07/31/18 Range/Units 13:53 13:53 13:53 WBC 6.3 (4.5-11.0) K/mm3 RBC 2.29 L (3.65-5.03) M/mm3 Hgb 8.4 L (11.8-15.2) gm/dl Hct 24.1 L (35.5-45.6) % MCV 105 H (84-94) fl MCH 37 H (28-32) pg MCHC 35 H (32-34) % RDW 15.0 (13.2-15.2) % Plt Count 216 (140-440) K/mm3 Lymph % (Auto) 24.2 (13.4-35.0) % [place] % (Auto) 6.5 (0.0-7.3) % Eos % (Auto) 1.5 (0.0-4.3) % Baso % (Auto) 0.3 (0.0-1.8) % Lymph # 1.5 (1.2-5.4) K/mm3 [place] # 0.4 (0.0-0.8) K/mm3 Eos # 0.1 (0.0-0.4) K/mm3 Baso # 0.0 (0.0-0.1) K/mm3 Seg Neutrophils % 67.5 (40.0-70.0) % Seg Neutrophils # 4.3 (1.8-7.7) K/mm3 PT 13.4 (12.2-14.9) Sec. INR 0.96 (0.87-1.13) APTT 25.8 (24.2-36.6) Sec. Sodium 139 (137-145) mmol/L Potassium 3.8 (3.6-5.0) mmol/L Chloride 104.5 (98-107) mmol/L Carbon Dioxide 18 L (22-30) mmol/L Anion Gap 20 mmol/L BUN 42 H (9-20) mg/dL Creatinine 1.1 (0.8-1.5) mg/dL Estimated GFR > 60 ml/min BUN/Creatinine Ratio 38 % Glucose 132 H (75-100) mg/dL Lactic Acid (0.7-2.0) mmol/L Calcium 9.0 (8.4-10.2) mg/dL Total Bilirubin 0.30 (0.1-1.2) mg/dL AST 27 (5-40) units/L ALT 13 (7-56) units/L Alkaline Phosphatase 60 (35-129) units/L Total Protein 6.8 (6.3-8.2) g/dL Albumin 3.7 L (3.9-5) g/dL Albumin/Globulin Ratio 1.2 % Urine Color (Yellow) Urine Turbidity (Clear) Urine pH (5.0-7.0) Ur Specific [place] (1.003-1.030) Urine Protein (Negative) mg/dL Urine Glucose (UA) (Negative) mg/dL Urine Ketones (Negative) mg/dL Urine Blood (Negative) Urine Nitrite (Negative) Urine Bilirubin (Negative) Urine Urobilinogen (<2.0) mg/dL Ur Leukocyte Esterase (Negative) Urine WBC (Auto) (0.0-6.0) /HPF Urine RBC (Auto) (0.0-6.0) /HPF U Epithel Cells (Auto) (0-13.0) /HPF Plasma/Serum Alcohol (0-0.07) % 07/31/18 07/31/18 07/31/18 Range/Units 13:53 13:53 15:23 WBC (4.5-11.0) K/mm3 RBC (3.65-5.03) M/mm3 Hgb (11.8-15.2) gm/dl Hct (35.5-45.6) % MCV (84-94) fl MCH (28-32) pg MCHC (32-34) % RDW (13.2-15.2) % Plt Count (140-440) K/mm3 Lymph % (Auto) (13.4-35.0) % [place] % (Auto) (0.0-7.3) % Eos % (Auto) (0.0-4.3) % Baso % (Auto) (0.0-1.8) % Lymph # (1.2-5.4) K/mm3 [place] # (0.0-0.8) K/mm3 Eos # (0.0-0.4) K/mm3 Baso # (0.0-0.1) K/mm3 Seg Neutrophils % (40.0-70.0) % Seg Neutrophils # (1.8-7.7) K/mm3 PT (12.2-14.9) Sec. INR (0.87-1.13) APTT (24.2-36.6) Sec. Sodium (137-145) mmol/L Potassium (3.6-5.0) mmol/L Chloride (98-107) mmol/L Carbon Dioxide (22-30) mmol/L Anion Gap mmol/L BUN (9-20) mg/dL Creatinine (0.8-1.5) mg/dL Estimated GFR ml/min BUN/Creatinine Ratio % Glucose (75-100) mg/dL Lactic Acid 2.00 2.20 H* (0.7-2.0) mmol/L Calcium (8.4-10.2) mg/dL Total Bilirubin (0.1-1.2) mg/dL AST (5-40) units/L ALT (7-56) units/L Alkaline Phosphatase (35-129) units/L Total Protein (6.3-8.2) g/dL Albumin (3.9-5) g/dL Albumin/Globulin Ratio % Urine Color (Yellow) Urine Turbidity (Clear) Urine pH (5.0-7.0) Ur Specific [place] (1.003-1.030) Urine Protein (Negative) mg/dL Urine Glucose (UA) (Negative) mg/dL Urine Ketones (Negative) mg/dL Urine Blood (Negative) Urine Nitrite (Negative) Urine Bilirubin (Negative) Urine Urobilinogen (<2.0) mg/dL Ur Leukocyte Esterase (Negative) Urine WBC (Auto) (0.0-6.0) /HPF Urine RBC (Auto) (0.0-6.0) /HPF U Epithel Cells (Auto) (0-13.0) /HPF Plasma/Serum Alcohol 0.03 (0-0.07) % 07/31/18 Range/Units Unknown WBC (4.5-11.0) K/mm3 RBC (3.65-5.03) M/mm3 Hgb (11.8-15.2) gm/dl Hct (35.5-45.6) % MCV (84-94) fl MCH (28-32) pg MCHC (32-34) % RDW (13.2-15.2) % Plt Count (140-440) K/mm3 Lymph % (Auto) (13.4-35.0) % [place] % (Auto) (0.0-7.3) % Eos % (Auto) (0.0-4.3) % Baso % (Auto) (0.0-1.8) % Lymph # (1.2-5.4) K/mm3 [place] # (0.0-0.8) K/mm3 Eos # (0.0-0.4) K/mm3 Baso # (0.0-0.1) K/mm3 Seg Neutrophils % (40.0-70.0) % Seg Neutrophils # (1.8-7.7) K/mm3 PT (12.2-14.9) Sec. INR (0.87-1.13) APTT (24.2-36.6) Sec. Sodium (137-145) mmol/L Potassium (3.6-5.0) mmol/L Chloride (98-107) mmol/L Carbon Dioxide (22-30) mmol/L Anion Gap mmol/L BUN (9-20) mg/dL Creatinine (0.8-1.5) mg/dL Estimated GFR ml/min BUN/Creatinine Ratio % Glucose (75-100) mg/dL Lactic Acid (0.7-2.0) mmol/L Calcium (8.4-10.2) mg/dL Total Bilirubin (0.1-1.2) mg/dL AST (5-40) units/L ALT (7-56) units/L Alkaline Phosphatase (35-129) units/L Total Protein (6.3-8.2) g/dL Albumin (3.9-5) g/dL Albumin/Globulin Ratio % Urine Color Yellow (Yellow) Urine Turbidity Clear (Clear) Urine pH 8.0 H (5.0-7.0) Ur Specific [place] 1.056 H (1.003-1.030) Urine Protein <15 mg/dl (Negative) mg/dL Urine Glucose (UA) Neg (Negative) mg/dL Urine Ketones Tr (Negative) mg/dL Urine Blood Neg (Negative) Urine Nitrite Neg (Negative) Urine Bilirubin Neg (Negative) Urine Urobilinogen < 2.0 (<2.0) mg/dL Ur Leukocyte Esterase Neg (Negative) Urine WBC (Auto) < 1.0 (0.0-6.0) /HPF Urine RBC (Auto) 2.0 (0.0-6.0) /HPF U Epithel Cells (Auto) 4.0 (0-13.0) /HPF Plasma/Serum Alcohol (0-0.07) % - EKG Data -: EKG Interpreted by Nh EKG shows normal: sinus rhythm Rate: normal - EKG Data 07/31/18 16:50 EKG #1 shows a sinus tachycardia, normal axis, normal intervals, poor R-wave progression, abnormal EKG, not consistent with ST elevation myocardial infarction. EKG #2 appears to be unchanged from prior. - Radiology Data Radiology results: report reviewed, image reviewed CT scan of the brain is negative for acute disease Critical Care Time: Yes Critical care time in (mins) excluding proc time.: 35 Critical care attestation.: If time is entered above; I have spent that time in minutes in the direct care of this critically ill patient, excluding procedure time. ED Disposition Clinical Impression: Upper GI bleed, Right sided weakness Disposition: [id number] OP ADMIT IP TO THIS HOSP Is pt being admited?: Yes Does the pt Need Aspirin: No (aspirin held given evidence of GI bleed) Condition: Serious
[2018-07-31 16:42] LABS: Bilirubin,Urine NEG (Negative); Blood,Urine NEG (Negative); Color,Urine Yellow (Yellow); Protein,Urine <15 mg/dL mg/dL (Negative); Urobilinogen,Urine < 2.0 mg/dL (<2.0); WBC,Urine < 1.0 /HPF (0.0-6.0)
[2018-07-31 16:50] LABS: Amphetamine Screen,Urine PRESUMPTIVE NEGATIVE; Benzodiazepines Screen,Urine PRESUMPTIVE NEGATIVE; Methadone Screen,Urine PRESUMPTIVE NEGATIVE; Opiate Screen,Urine PRESUMPTIVE NEGATIVE
--- NOTE | 2018-07-31 17:12 | Emergency Department Report ---
ED Neuro Deficit HPI - General Chief Complaint: Dizziness Stated Complaint: DIZZY/(R) LEG WEAK Time Seen by Provider: 07/31/18 13:30 Source: patient, RN notes reviewed, old records reviewed Mode of arrival: Ambulatory Limitations: Physical Limitation - History of Present Illness Initial Comments: [facility] Tele[facility]urology Consult [facility] DATE: July 31, 2018 Impression: Possible acute blood loss anemia with CVA or focal symptoms from that-his hemoglobin is 8 which could produce some symptoms potentially but he certainly needs a stroke workup as he does have right-sided weakness and numbness that is new. He is going to have a transfusion goal hemoglobin 9-10. Going to hold all blood thinners of course until GI evaluation and further workup of the source of his melana. He will need inpatient neurology consultation and stroke workup. Permissive hypertension for now TPA stroke protocol Not a tpa candidate due to:active bleeding from GI tract LKN over 4.5 hours ago Symptoms (not) consistent with LVO therefore no role for OPAL Differential Diagnosis:tia/cva/focal sx from anemia 1. Cardioembolic stroke 2. Small vessel disease/lacune 3. Thromboembolic, [id number] mechanism 4. Hypercoagulable state-related infarct 5. Transient ischemic attack 6. Thrombotic mechanism, large artery disease Comments: Door time 13:41 Last known normal yesterday at 18:00 [employer] contacted: 15:35 [employer] at bedside: 15:40 NIHSS assessment time: 15:46 Recommendations: -No blood thinners or antiplatelets until its determine the source of the patient's bleeding which has been addressed -He will need inpatient neurology consultation and stroke workup given that he does have focal neurologic symptoms -Physical and occupational therapy evaluation transfusion to recent hemoglobin of 9-10 - Inpatient neurology consultation Inpatient stroke evaluation as per Neurology/ Internal Medicine Discussed with ED MD Please call with questions --------- CC right-sided weakness and numbness History of Present Illness Patient is a pleasant 53-year-old gentleman with a history of diabetes and hypertension who is presenting with feeling weak all over nausea unwell since yesterday at about 6 PM. Today he almost passed out while standing and ultimately called 911. He's also noticed that his right side is weaker and feels numb compared to the left although he is not exactly sure when it started. He thinks he may have has a history of internal bleeding at some point in the past but can't recall any other details. He's had dark tarry stools with concern for active GI bleeding. His hemoglobin is only 8. He does not take any blood thinners He denies any headache or chest pain. Vital signs are otherwise unremarkable. Diagnostic: CT head without contrast no acute changes Exam: 1a- LOC: Keenly responsive - =0 1b- LOC questions: Answers both questions correctly - 0 1c- LOC commands- Performs both tasks correctly- 0 2- Gaze: Normal; no gaze paresis or gaze deviation - 0 3- Visual Finn: normal, no Visual field deficit - 0 4- Facial movements: Right trace facial smile asymmetry=1 5- Upper limb motor - no drift -0 no drift however he feels like it harder to lift his right arm and right leg 6- Lower limb motor - no drift - 0 7- Limb Coordination: absent ataxia - 0 8- Sensory : Decreased sensation on the right=1 9- Language - No aphasia - 0 10- Speech - No dysarthria -0 11- Neglect / Extinction - none found -0 NIHSS score 2 Medical Decision Making: - Extensive number of diagnosis or management options are considered above. - Extensive amount of complex data reviewed. - High risk of complication and/or morbidity or mortality are associated with differential diagnostic considerations above. - There may be Uncertain outcome and increased probability of prolonged functional impairment or high probability of severe prolonged functional impairment associated with some of these differential diagnosis. Medical Data Reviewed: 1.Data reviewed include clinical labs, radiology, Medical Tests; 2.Tests results discussed w/performing or interpreting physician; 3.Obtaining/reviewing old medical records; 4.Obtaining case history from another source; 5.Independent review of image, tracing or specimen. Patient was informed the Neurology Consult would happen via telehealth (remote video) and consented to receiving care in this manner. -: Gradual - Related Data Home Medications: Home Medications Medication Instructions Recorded Confirmed Last Taken Multivit-Min/Iron Fum/Folic AC 1 each PO DAILY 04/01/18 04/01/18 Unknown [Monocaps Tablet] Previous Rx's Medication Instructions Recorded Last Taken Type LORazepam [Ativan] 1 mg PO BID PRN #20 tablet 04/03/18 Unknown Rx amLODIPine [Norvasc] 5 mg PO DAILY #30 tab 04/03/18 Unknown Rx amLODIPine [Norvasc] 10 mg PO DAILY #30 tablet 04/03/18 Unknown Rx Ibuprofen [Motrin 800 MG tab] 800 mg PO Q8HR PRN #30 tablet 04/17/18 Unknown Rx Dicyclomine [Bentyl] 20 mg PO QID PRN #20 tablet 05/01/18 Unknown Rx Promethazine [Phenergan TAB] 25 mg PO Q6HR PRN #20 tab 05/01/18 Unknown Rx Allergies/Adverse Reactions: Allergies Allergy/AdvReac Type Severity Reaction Status Date / Time morphine Allergy Hives Verified 07/31/18 13:23 ED Review of Systems ROS: Stated complaint: DIZZY/(R) LEG WEAK Other details as noted in HPI Constitutional: malaise, weakness Eyes: denies: eye discharge ENT: denies: epistaxis Respiratory: denies: cough Cardiovascular: denies: chest pain Gastrointestinal: abdominal pain, nausea, vomiting, melena. denies: hematochezia Genitourinary: dysuria. denies: testicular pain Musculoskeletal: arthralgia Skin: denies: lesions Neurological: weakness, numbness, paresthesias, abnormal gait ED Past Medical Hx - Past Medical History Previous Medical History?: Yes Hx Hypertension: Yes (FOR 2 MTHS) Hx Diabetes: Yes (FOR 5 YRS, NO MEDS) Hx Liver Disease: No Hx Renal Disease: No Hx Arthritis: Yes Hx Seizures: No Hx Asthma: No Additional medical history: GOUT - Surgical History Past Surgical History?: Yes Additional Surgical History: R. hand repair - Social History Smoking Status: Current Every Day Smoker Substance Use Type: Alcohol - Medications Home Medications: Home Medications Medication Instructions Recorded Confirmed Last Taken Type Multivit-Min/Iron Fum/Folic AC 1 each PO DAILY 04/01/18 04/01/18 Unknown History [Monocaps Tablet] LORazepam [Ativan] 1 mg PO BID PRN #20 tablet 04/03/18 Unknown Rx amLODIPine [Norvasc] 5 mg PO DAILY #30 tab 04/03/18 Unknown Rx amLODIPine [Norvasc] 10 mg PO DAILY #30 tablet 04/03/18 Unknown Rx Ibuprofen [Motrin 800 MG tab] 800 mg PO Q8HR PRN #30 tablet 04/17/18 Unknown Rx Dicyclomine [Bentyl] 20 mg PO QID PRN #20 tablet 05/01/18 Unknown Rx Promethazine [Phenergan TAB] 25 mg PO Q6HR PRN #20 tab 05/01/18 Unknown Rx ED Neuro Physical Exam - General Limitations: Physical Limitation General appearance: alert, anxious Suspected Stroke: Yes - NIHSS Assessment Interval: Baseline 1a. Level of Consciousness: alert/keenly responsive 1b. LOC Questions: answers both correctly 1c. LOC Commands: performs tasks correctly 2. Best Gaze: normal 3. Visual: no visual loss 4. Facial Palsy: minor paralysis 5b. Motor Arm Right: no drift 5a. Motor Arm Left: no drift 6a. Motor Leg Left: no drift 6b. Motor Leg Right: no drift 7. Limb Ataxia: absent 8. Sensory: mild/moderate sensory loss 9. Best Language: no aphasia 10. Dysarthria: normal 11. Extinction/Inattention: no abnormality Total Score: 2 Stroke Severity: Minor Stroke ED Course Vital Signs 07/31/18 07/31/18 07/31/18 13:41 13:53 15:49 Temperature 98.2 F Pulse Rate 130 H 111 H Respiratory 18 16 Rate Blood Pressure 133/72 131/84 O2 Sat by Pulse 96 100 100 Oximetry 07/31/18 07/31/18 16:00 16:15 Temperature Pulse Rate 95 H Respiratory 11 L 11 L Rate Blood Pressure 132/66 O2 Sat by Pulse 98 98 Oximetry - Lab Data Result diagrams: 07/31/18 13:53 07/31/18 13:53 Lab Results 07/31/18 07/31/18 07/31/18 Range/Units 13:53 13:53 13:53 WBC 6.3 (4.5-11.0) K/mm3 RBC 2.29 L (3.65-5.03) M/mm3 Hgb 8.4 L (11.8-15.2) gm/dl Hct 24.1 L (35.5-45.6) % MCV 105 H (84-94) fl MCH 37 H (28-32) pg MCHC 35 H (32-34) % RDW 15.0 (13.2-15.2) % Plt Count 216 (140-440) K/mm3 Lymph % (Auto) 24.2 (13.4-35.0) % [place] % (Auto) 6.5 (0.0-7.3) % Eos % (Auto) 1.5 (0.0-4.3) % Baso % (Auto) 0.3 (0.0-1.8) % Lymph # 1.5 (1.2-5.4) K/mm3 [place] # 0.4 (0.0-0.8) K/mm3 Eos # 0.1 (0.0-0.4) K/mm3 Baso # 0.0 (0.0-0.1) K/mm3 Seg Neutrophils % 67.5 (40.0-70.0) % Seg Neutrophils # 4.3 (1.8-7.7) K/mm3 PT 13.4 (12.2-14.9) Sec. INR 0.96 (0.87-1.13) APTT 25.8 (24.2-36.6) Sec. Sodium 139 (137-145) mmol/L Potassium 3.8 (3.6-5.0) mmol/L Chloride 104.5 (98-107) mmol/L Carbon Dioxide 18 L (22-30) mmol/L Anion Gap 20 mmol/L BUN 42 H (9-20) mg/dL Creatinine 1.1 (0.8-1.5) mg/dL Estimated GFR > 60 ml/min BUN/Creatinine Ratio 38 % Glucose 132 H (75-100) mg/dL Lactic Acid (0.7-2.0) mmol/L Calcium 9.0 (8.4-10.2) mg/dL Magnesium (1.7-2.3) mg/dL Total Bilirubin 0.30 (0.1-1.2) mg/dL AST 27 (5-40) units/L ALT 13 (7-56) units/L Alkaline Phosphatase 60 (35-129) units/L Total Protein 6.8 (6.3-8.2) g/dL Albumin 3.7 L (3.9-5) g/dL Albumin/Globulin Ratio 1.2 % Urine Color (Yellow) Urine Turbidity (Clear) Urine pH (5.0-7.0) Ur Specific [place] (1.003-1.030) Urine Protein (Negative) mg/dL Urine Glucose (UA) (Negative) mg/dL Urine Ketones (Negative) mg/dL Urine Blood (Negative) Urine Nitrite (Negative) Urine Bilirubin (Negative) Urine Urobilinogen (<2.0) mg/dL Ur Leukocyte Esterase (Negative) Urine WBC (Auto) (0.0-6.0) /HPF Urine RBC (Auto) (0.0-6.0) /HPF U Epithel Cells (Auto) (0-13.0) /HPF Urine Opiates Screen Urine Methadone Screen Ur Barbiturates Screen Ur Phencyclidine Scrn Ur Amphetamines Screen U Benzodiazepines Scrn Plasma/Serum Alcohol (0-0.07) % 07/31/18 07/31/18 07/31/18 Range/Units 13:53 13:53 15:23 WBC (4.5-11.0) K/mm3 RBC (3.65-5.03) M/mm3 Hgb (11.8-15.2) gm/dl Hct (35.5-45.6) % MCV (84-94) fl MCH (28-32) pg MCHC (32-34) % RDW (13.2-15.2) % Plt Count (140-440) K/mm3 Lymph % (Auto) (13.4-35.0) % [place] % (Auto) (0.0-7.3) % Eos % (Auto) (0.0-4.3) % Baso % (Auto) (0.0-1.8) % Lymph # (1.2-5.4) K/mm3 [place] # (0.0-0.8) K/mm3 Eos # (0.0-0.4) K/mm3 Baso # (0.0-0.1) K/mm3 Seg Neutrophils % (40.0-70.0) % Seg Neutrophils # (1.8-7.7) K/mm3 PT (12.2-14.9) Sec. INR (0.87-1.13) APTT (24.2-36.6) Sec. Sodium (137-145) mmol/L Potassium (3.6-5.0) mmol/L Chloride (98-107) mmol/L Carbon Dioxide (22-30) mmol/L Anion Gap mmol/L BUN (9-20) mg/dL Creatinine (0.8-1.5) mg/dL Estimated GFR ml/min BUN/Creatinine Ratio % Glucose (75-100) mg/dL Lactic Acid 2.00 2.20 H* (0.7-2.0) mmol/L Calcium (8.4-10.2) mg/dL Magnesium (1.7-2.3) mg/dL Total Bilirubin (0.1-1.2) mg/dL AST (5-40) units/L ALT (7-56) units/L Alkaline Phosphatase (35-129) units/L Total Protein (6.3-8.2) g/dL Albumin (3.9-5) g/dL Albumin/Globulin Ratio % Urine Color (Yellow) Urine Turbidity (Clear) Urine pH (5.0-7.0) Ur Specific [place] (1.003-1.030) Urine Protein (Negative) mg/dL Urine Glucose (UA) (Negative) mg/dL Urine Ketones (Negative) mg/dL Urine Blood (Negative) Urine Nitrite (Negative) Urine Bilirubin (Negative) Urine Urobilinogen (<2.0) mg/dL Ur Leukocyte Esterase (Negative) Urine WBC (Auto) (0.0-6.0) /HPF Urine RBC (Auto) (0.0-6.0) /HPF U Epithel Cells (Auto) (0-13.0) /HPF Urine Opiates Screen Urine Methadone Screen Ur Barbiturates Screen Ur Phencyclidine Scrn Ur Amphetamines Screen U Benzodiazepines Scrn Plasma/Serum Alcohol 0.03 (0-0.07) % 07/31/18 07/31/18 07/31/18 Range/Units 16:30 16:30 Unknown WBC (4.5-11.0) K/mm3 RBC (3.65-5.03) M/mm3 Hgb (11.8-15.2) gm/dl Hct (35.5-45.6) % MCV (84-94) fl MCH (28-32) pg MCHC (32-34) % RDW (13.2-15.2) % Plt Count (140-440) K/mm3 Lymph % (Auto) (13.4-35.0) % [place] % (Auto) (0.0-7.3) % Eos % (Auto) (0.0-4.3) % Baso % (Auto) (0.0-1.8) % Lymph # (1.2-5.4) K/mm3 [place] # (0.0-0.8) K/mm3 Eos # (0.0-0.4) K/mm3 Baso # (0.0-0.1) K/mm3 Seg Neutrophils % (40.0-70.0) % Seg Neutrophils # (1.8-7.7) K/mm3 PT (12.2-14.9) Sec. INR (0.87-1.13) APTT (24.2-36.6) Sec. Sodium (137-145) mmol/L Potassium (3.6-5.0) mmol/L Chloride (98-107) mmol/L Carbon Dioxide (22-30) mmol/L Anion Gap mmol/L BUN (9-20) mg/dL Creatinine (0.8-1.5) mg/dL Estimated GFR ml/min BUN/Creatinine Ratio % Glucose (75-100) mg/dL Lactic Acid 0.80 (0.7-2.0) mmol/L Calcium (8.4-10.2) mg/dL Magnesium 1.90 (1.7-2.3) mg/dL Total Bilirubin (0.1-1.2) mg/dL AST (5-40) units/L ALT (7-56) units/L Alkaline Phosphatase (35-129) units/L Total Protein (6.3-8.2) g/dL Albumin (3.9-5) g/dL Albumin/Globulin Ratio % Urine Color Yellow (Yellow) Urine Turbidity Clear (Clear) Urine pH 8.0 H (5.0-7.0) Ur Specific [place] 1.056 H (1.003-1.030) Urine Protein <15 mg/dl (Negative) mg/dL Urine Glucose (UA) Neg (Negative) mg/dL Urine Ketones Tr (Negative) mg/dL Urine Blood Neg (Negative) Urine Nitrite Neg (Negative) Urine Bilirubin Neg (Negative) Urine Urobilinogen < 2.0 (<2.0) mg/dL Ur Leukocyte Esterase Neg (Negative) Urine WBC (Auto) < 1.0 (0.0-6.0) /HPF Urine RBC (Auto) 2.0 (0.0-6.0) /HPF U Epithel Cells (Auto) 4.0 (0-13.0) /HPF Urine Opiates Screen Urine Methadone Screen Ur Barbiturates Screen Ur Phencyclidine Scrn Ur Amphetamines Screen U Benzodiazepines Scrn Plasma/Serum Alcohol (0-0.07) % 07/31/18 Range/Units Unknown WBC (4.5-11.0) K/mm3 RBC (3.65-5.03) M/mm3 Hgb (11.8-15.2) gm/dl Hct (35.5-45.6) % MCV (84-94) fl MCH (28-32) pg MCHC (32-34) % RDW (13.2-15.2) % Plt Count (140-440) K/mm3 Lymph % (Auto) (13.4-35.0) % [place] % (Auto) (0.0-7.3) % Eos % (Auto) (0.0-4.3) % Baso % (Auto) (0.0-1.8) % Lymph # (1.2-5.4) K/mm3 [place] # (0.0-0.8) K/mm3 Eos # (0.0-0.4) K/mm3 Baso # (0.0-0.1) K/mm3 Seg Neutrophils % (40.0-70.0) % Seg Neutrophils # (1.8-7.7) K/mm3 PT (12.2-14.9) Sec. INR (0.87-1.13) APTT (24.2-36.6) Sec. Sodium (137-145) mmol/L Potassium (3.6-5.0) mmol/L Chloride (98-107) mmol/L Carbon Dioxide (22-30) mmol/L Anion Gap mmol/L BUN (9-20) mg/dL Creatinine (0.8-1.5) mg/dL Estimated GFR ml/min BUN/Creatinine Ratio % Glucose (75-100) mg/dL Lactic Acid (0.7-2.0) mmol/L Calcium (8.4-10.2) mg/dL Magnesium (1.7-2.3) mg/dL Total Bilirubin (0.1-1.2) mg/dL AST (5-40) units/L ALT (7-56) units/L Alkaline Phosphatase (35-129) units/L Total Protein (6.3-8.2) g/dL Albumin (3.9-5) g/dL Albumin/Globulin Ratio % Urine Color (Yellow) Urine Turbidity (Clear) Urine pH (5.0-7.0) Ur Specific [place] (1.003-1.030) Urine Protein (Negative) mg/dL Urine Glucose (UA) (Negative) mg/dL Urine Ketones (Negative) mg/dL Urine Blood (Negative) Urine Nitrite (Negative) Urine Bilirubin (Negative) Urine Urobilinogen (<2.0) mg/dL Ur Leukocyte Esterase (Negative) Urine WBC (Auto) (0.0-6.0) /HPF Urine RBC (Auto) (0.0-6.0) /HPF U Epithel Cells (Auto) (0-13.0) /HPF Urine Opiates Screen Presumptive negative Urine Methadone Screen Presumptive negative Ur Barbiturates Screen Presumptive negative Ur Phencyclidine Scrn Presumptive negative Ur Amphetamines Screen Presumptive negative U Benzodiazepines Scrn Presumptive negative Plasma/Serum Alcohol (0-0.07) % Critical care attestation.: If time is entered above; I have spent that time in minutes in the direct care of this critically ill patient, excluding procedure time. ED Disposition Clinical Impression: Right sided weakness Disposition: OP ADMIT IP TO THIS HOSP Is pt being admited?: Yes Condition: Serious Referrals: ENDER REESE MD [Primary Care Provider] - 3-5 Days
[2018-07-31 17:14] LABS: Cannabinoid Screen,Urine PRESUMPTIVE POSITIVE; Cocaine Screen,Urine PRESUMPTIVE POSITIVE
--- NOTE | 2018-07-31 17:30 | Gastroenterology Consultation ---
History of Present Illness - Reason for Consult Consult date: 07/31/18 melena Requesting physician: AMERICA MAX - History of Present Illness This is a 53 yo male with pmh of HTN presenting to the ED for abdominal pain, melena, and coffee ground emesis x 1 day. He reports having black tarry stools since yesterday. Reports mid and epigastric pain radiating to his sides. Denies any bright red blood in the stool. No prior hx of GI bleed. Last colonoscopy a few years ago for hematochezia showed diverticulosis and internal hemorrhoids. no prior EGD. He reports taking ibuprofen daily for several weeks for back pain. Past History Past Medical History: hypertension Past Surgical History: denies: bowel surgery Social history: full code Family history: other (no known family hx due to being adopted) Medications and Allergies Allergies Allergy/AdvReac Type Severity Reaction Status Date / Time morphine Allergy Hives Verified 07/31/18 13:23 Home Medications Medication Instructions Recorded Confirmed Last Taken Type Multivit-Min/Iron Fum/Folic AC 1 each PO DAILY 04/01/18 04/01/18 Unknown History [Monocaps Tablet] LORazepam [Ativan] 1 mg PO BID PRN #20 tablet 04/03/18 Unknown Rx amLODIPine [Norvasc] 5 mg PO DAILY #30 tab 04/03/18 Unknown Rx amLODIPine [Norvasc] 10 mg PO DAILY #30 tablet 04/03/18 Unknown Rx Ibuprofen [Motrin 800 MG tab] 800 mg PO Q8HR PRN #30 tablet 04/17/18 Unknown Rx Dicyclomine [Bentyl] 20 mg PO QID PRN #20 tablet 05/01/18 Unknown Rx Promethazine [Phenergan TAB] 25 mg PO Q6HR PRN #20 tab 05/01/18 Unknown Rx Review of Systems - Review of Systems All systems: negative Constitutional: no weight loss, no weight gain Cardiovascular: no chest pain Gastrointestinal: abdominal pain, nausea, vomiting, coffee ground emesis, melena, no BRBPR, no hematochezia Rectal: hemorrhoids Neurological: weakness Allergic/Immunologic: no wheezing Exam - Constitutional Vital Signs: Temp Pulse Resp BP Pulse Ox 98.2 F 97 H 19 109/73 100 07/31/18 13:41 07/31/18 17:00 07/31/18 17:00 07/31/18 17:00 07/31/18 17:00 General appearance: no acute distress, well-nourished - EENT Eyes: EOM intact ENT: hearing intact, clear oral mucosa - Neck Neck: supple - Respiratory Respiratory effort: normal Respiratory: bilateral: CTA - Breasts Breasts: deferred - Cardiovascular Rhythm: regular Heart Sounds: Present: S1 & S2. Absent: gallop, rub Extremities: pulses intact, No edema, normal color, Full ROM - Gastrointestinal General gastrointestinal: Present: soft, tender, non-distended - Integumentary Integumentary: Present: clear, warm, dry - Neurologic Neurological: alert and oriented x3 - Psychiatric Psychiatric: appropriate mood/affect, intact judgment & insight, memory intact - Labs CBC & Chem 7: 07/31/18 13:53 07/31/18 13:53 Lab Results: Laboratory Results - last 24 hr 07/31/18 07/31/18 07/31/18 13:53 13:53 13:53 WBC 6.3 RBC 2.29 L Hgb 8.4 L Hct 24.1 L MCV 105 H MCH 37 H MCHC 35 H RDW 15.0 Plt Count 216 Lymph % (Auto) 24.2 [place] % (Auto) 6.5 Eos % (Auto) 1.5 Baso % (Auto) 0.3 Lymph # 1.5 [place] # 0.4 Eos # 0.1 Baso # 0.0 Seg Neutrophils % 67.5 Seg Neutrophils # 4.3 PT 13.4 INR 0.96 APTT 25.8 Sodium 139 Potassium 3.8 Chloride 104.5 Carbon Dioxide 18 L Anion Gap 20 BUN 42 H Creatinine 1.1 Estimated GFR > 60 BUN/Creatinine Ratio 38 Glucose 132 H Lactic Acid Calcium 9.0 Magnesium Total Bilirubin 0.30 AST 27 ALT 13 Alkaline Phosphatase 60 Total Protein 6.8 Albumin 3.7 L Albumin/Globulin Ratio 1.2 Urine Color Urine Turbidity Urine pH Ur Specific [place] Urine Protein Urine Glucose (UA) Urine Ketones Urine Blood Urine Nitrite Urine Bilirubin Urine Urobilinogen Ur Leukocyte Esterase Urine WBC (Auto) Urine RBC (Auto) U Epithel Cells (Auto) Urine Opiates Screen Urine Methadone Screen Ur Barbiturates Screen Ur Phencyclidine Scrn Ur Amphetamines Screen U Benzodiazepines Scrn Urine Cocaine Screen U Marijuana (THC) Screen Drugs of Abuse Note Plasma/Serum Alcohol Blood Type JOY Antibody Screen Crossmatch 07/31/18 07/31/18 07/31/18 13:53 13:53 15:23 WBC RBC Hgb Hct MCV MCH MCHC RDW Plt Count Lymph % (Auto) [place] % (Auto) Eos % (Auto) Baso % (Auto) Lymph # [place] # Eos # Baso # Seg Neutrophils % Seg Neutrophils # PT INR APTT Sodium Potassium Chloride Carbon Dioxide Anion Gap BUN Creatinine Estimated GFR BUN/Creatinine Ratio Glucose Lactic Acid 2.00 2.20 H* Calcium Magnesium Total Bilirubin AST ALT Alkaline Phosphatase Total Protein Albumin Albumin/Globulin Ratio Urine Color Urine Turbidity Urine pH Ur Specific [place] Urine Protein Urine Glucose (UA) Urine Ketones Urine Blood Urine Nitrite Urine Bilirubin Urine Urobilinogen Ur Leukocyte Esterase Urine WBC (Auto) Urine RBC (Auto) U Epithel Cells (Auto) Urine Opiates Screen Urine Methadone Screen Ur Barbiturates Screen Ur Phencyclidine Scrn Ur Amphetamines Screen U Benzodiazepines Scrn Urine Cocaine Screen U Marijuana (THC) Screen Drugs of Abuse Note Plasma/Serum Alcohol 0.03 Blood Type JOY Antibody Screen Crossmatch 07/31/18 07/31/18 07/31/18 16:30 16:30 16:30 WBC RBC Hgb Hct MCV MCH MCHC RDW Plt Count Lymph % (Auto) [place] % (Auto) Eos % (Auto) Baso % (Auto) Lymph # [place] # Eos # Baso # Seg Neutrophils % Seg Neutrophils # PT INR APTT Sodium Potassium Chloride Carbon Dioxide Anion Gap BUN Creatinine Estimated GFR BUN/Creatinine Ratio Glucose Lactic Acid 0.80 Calcium Magnesium 1.90 Total Bilirubin AST ALT Alkaline Phosphatase Total Protein Albumin Albumin/Globulin Ratio Urine Color Urine Turbidity Urine pH Ur Specific [place] Urine Protein Urine Glucose (UA) Urine Ketones Urine Blood Urine Nitrite Urine Bilirubin Urine Urobilinogen Ur Leukocyte Esterase Urine WBC (Auto) Urine RBC (Auto) U Epithel Cells (Auto) Urine Opiates Screen Urine Methadone Screen Ur Barbiturates Screen Ur Phencyclidine Scrn Ur Amphetamines Screen U Benzodiazepines Scrn Urine Cocaine Screen U Marijuana (THC) Screen Drugs of Abuse Note Plasma/Serum Alcohol Blood Type B POSITIVE JOY Antibody Screen Negative Crossmatch See Detail 07/31/18 07/31/18 Unknown Unknown WBC RBC Hgb Hct MCV MCH MCHC RDW Plt Count Lymph % (Auto) [place] % (Auto) Eos % (Auto) Baso % (Auto) Lymph # [place] # Eos # Baso # Seg Neutrophils % Seg Neutrophils # PT INR APTT Sodium Potassium Chloride Carbon Dioxide Anion Gap BUN Creatinine Estimated GFR BUN/Creatinine Ratio Glucose Lactic Acid Calcium Magnesium Total Bilirubin AST ALT Alkaline Phosphatase Total Protein Albumin Albumin/Globulin Ratio Urine Color Yellow Urine Turbidity Clear Urine pH 8.0 H Ur Specific [place] 1.056 H Urine Protein <15 mg/dl Urine Glucose (UA) Neg Urine Ketones Tr Urine Blood Neg Urine Nitrite Neg Urine Bilirubin Neg Urine Urobilinogen < 2.0 Ur Leukocyte Esterase Neg Urine WBC (Auto) < 1.0 Urine RBC (Auto) 2.0 U Epithel Cells (Auto) 4.0 Urine Opiates Screen Presumptive negative Urine Methadone Screen Presumptive negative Ur Barbiturates Screen Presumptive negative Ur Phencyclidine Scrn Presumptive negative Ur Amphetamines Screen Presumptive negative U Benzodiazepines Scrn Presumptive negative Urine Cocaine Screen Presumptive positive U Marijuana (THC) Screen Presumptive positive Drugs of Abuse Note Disclamer Plasma/Serum Alcohol Blood Type JOY Antibody Screen Crossmatch Assessment and Plan # Melena # Abdominal pain # Coffee ground emesis - concern for upper GI bleed. - Hgb down to 7 from previous 12 a few months ago. - HD stable. - likely 2/2 PUD in the setting of NSAID use. Rec; - recommend IV PPI - keep NPO - will plan for EGD tomorrow. - antiemetics prn. - monitor H/H serially. - will follow.
--- NOTE | 2018-07-31 18:03 | History and Physical Report ---
History of Present Illness Chief complaint: My right side was weak, and i have been bleeding History of present illness: 53 YO Male with HTN, Diverticulosis, Hemorrhoids, DM, OA, Gout, Nicotine Dependence, Polysubstance Abuse, ETOH Dependence presents to ED for evaluation. Pt states that he has experienced abdominal discomfort over the past 1 day with multiple episodes of black tarry stools, and multiple episodes of coffee ground emesis. Pt also reports right side weakness. Pt states that he was in his usual state of health at bedtime around 2100hrs. Upon waking from sleep around 0600 hrs the patient felt right arm and leg weakness, Pt states that he was unable to walk due to "dragging my right leg". Pt states that his last drink was3 days ago. Pt transported to [facility] via private vehicle. Pt seen and evaluated in ED and found to have GI bleed, as well as concomitant symptoms consistent with CVA. Teleneurology consulted in ED. Pt determined not to be a candidate for TPA. Pt initiated on CVA as well as GI Bleed protocols. GI team consulted in ED. Neurology consulted in ED. Prior admission on 04/01/18 reviewed. All listed medication reconciled at time of admission. Past History Past Medical History: hypertension Past Surgical History: denies: bowel surgery Social history: full code Family history: other (no known family hx due to being adopted) Medications and Allergies Allergies Allergy/AdvReac Type Severity Reaction Status Date / Time morphine Allergy Hives Verified 07/31/18 13:23 Home Medications Medication Instructions Recorded Confirmed Last Taken Type Multivit-Min/Iron Fum/Folic AC 1 each PO DAILY 04/01/18 04/01/18 Unknown History [Monocaps Tablet] LORazepam [Ativan] 1 mg PO BID PRN #20 tablet 04/03/18 Unknown Rx amLODIPine [Norvasc] 5 mg PO DAILY #30 tab 04/03/18 Unknown Rx Review of Systems Constitutional: no weight loss, no weight gain, no fever, no chills Ears, nose, mouth and throat: no ear pain, no ear discharge, no decreased hearing, no nose pain, no nasal congestion, no nasal discharge Cardiovascular: no chest pain, no orthopnea, no palpitations, no rapid/irregular heart beat, no edema Respiratory: no cough, no cough with sputum, no excessive sputum Gastrointestinal: hematemesis, no abdominal pain Genitourinary Male: no hematuria, no flank pain, no discharge, no urinary frequency, no urinary hesitancy Rectal: bleeding, no pain, no incontinence Musculoskeletal: no neck stiffness, no neck pain, no shooting arm pain, no arm numbness/tingling, no low back pain, no shooting leg pain Integumentary: no rash, no pruritis, no redness, no sores, no wounds, no jaundice Neurological: transient paralysis, weakness, numbness, ataxia, balance difficulties, gait dysfunction, motor disturbance, no paralysis, no vertigo, no headaches, no migraines, no change in speech, no change in mentation Psychiatric: no anxiety, no memory loss, no change in sleep habits, no sleep d isturbances, no insomnia Endocrine: no cold intolerance, no heat intolerance, no polyphagia, no polydipsia Hematologic/Lymphatic: no easy bruising, no easy bleeding, no lymphadenopathy, no lymphedema Allergic/Immunologic: no urticaria, no persistent infections, no anaphylaxis Exam - Constitutional Vitals: Temp Pulse Resp BP Pulse Ox 98.2 F 97 H 19 131/68 99 07/31/18 13:41 07/31/18 17:00 07/31/18 17:30 07/31/18 17:30 07/31/18 17:30 General appearance: Present: mild distress - EENT Eyes: Present: PERRL ENT: hearing intact, clear oral mucosa - Neck Neck: Present: supple, normal ROM - Respiratory Respiratory effort: normal Respiratory: bilateral: CTA - Cardiovascular Heart Sounds: Present: S1 & S2. Absent: rub, click - Extremities Extremities: pulses symmetrical, No edema Peripheral Pulses: within normal limits - Abdominal General gastrointestinal: Present: soft, non-tender, non-distended, normal bowel sounds Male genitourinary: Present: normal - Integumentary Integumentary: Present: clear, warm, dry - Musculoskeletal Musculoskeletal: gait normal, strength equal bilaterally - Psychiatric Psychiatric: appropriate mood/affect, intact judgment & insight - Neurologic Neurologic: CNII-XII intact, moves all extremities Results - Labs CBC & Chem 7: 07/31/18 13:53 07/31/18 13:53 Labs: Abnormal lab results 07/31/18 07/31/18 07/31/18 Range/Units 13:53 13:53 15:23 RBC 2.29 L (3.65-5.03) M/mm3 Hgb 8.4 L (11.8-15.2) gm/dl Hct 24.1 L (35.5-45.6) % MCV 105 H (84-94) fl MCH 37 H (28-32) pg MCHC 35 H (32-34) % Carbon Dioxide 18 L (22-30) mmol/L BUN 42 H (9-20) mg/dL Glucose 132 H (75-100) mg/dL Lactic Acid 2.20 H* (0.7-2.0) mmol/L Albumin 3.7 L (3.9-5) g/dL Urine pH (5.0-7.0) Ur Specific [place] (1.003-1.030) Crossmatch 07/31/18 07/31/18 Range/Units 16:30 Unknown RBC (3.65-5.03) M/mm3 Hgb (11.8-15.2) gm/dl Hct (35.5-45.6) % MCV (84-94) fl MCH (28-32) pg MCHC (32-34) % Carbon Dioxide (22-30) mmol/L BUN (9-20) mg/dL Glucose (75-100) mg/dL Lactic Acid (0.7-2.0) mmol/L Albumin (3.9-5) g/dL Urine pH 8.0 H (5.0-7.0) Ur Specific [place] 1.056 H (1.003-1.030) Crossmatch See Detail Assessment and Plan - Patient Problems (1) CVA (cerebral vascular accident) Current Visit: Yes Status: Acute Qualifiers: Precerebral and cerebral artery: middle cerebral artery Laterality of affected vessel: left Plan to address problem: CVA Protocol: CT head, Neuro check, Admit to telemetry, MRI Brain, MRA Brain, Echo, Carotid doppler, PT/OT/ Speech therapy, hold anticoagulation due to GI bleed, statin therapy, lipid panel, neurology consulted. (2) GI bleed Current Visit: Yes Status: Acute Qualifiers: GI bleed type/associated pathology: anorectal hemorrhage Qualified Code(s): K62.5 - Hemorrhage of anus and rectum Plan to address problem: GI consulted in ED, PPI therapy, serial CBC, supportive care. (3) Nicotine dependence unspecified, with withdrawal Current Visit: Yes Status: Acute Qualifiers: Nicotine product type: cigarettes Qualified Code(s): F17.213 - Nicotine dependence, cigarettes, with withdrawal Plan to address problem: smoking cessation counseling, supportive care. (4) EtOH dependence Current Visit: Yes Status: Acute Qualifiers: Complication of substance-induced condition: uncomplicated Plan to address problem: CIWA protocol, Thiamine,folic acid, multivitamin, supportive care. (5) Diabetes Current Visit: Yes Status: Acute Plan to address problem: ADA diet, insulin, accu chec, hypoglycemia protocol. (6) DVT prophylaxis Current Visit: Yes Status: Acute Plan to address problem: SCD to BLE while in bed, hold anticoagulation secondary to GI bleed.
[2018-07-31] MEDS ORDERED: ZOFRAN IV PRN (18:06)
[2018-07-31] MEDS ORDERED: DULCOLAX PR PRN (18:06)
[2018-07-31] MEDS ORDERED: PHENERGAN PR PRN (18:06)
[2018-07-31] MEDS ORDERED: SODIUM CHLORIDE FLUSH SYRINGE 10 ML IV PRN (18:06)
[2018-07-31] MEDS ORDERED: TYLENOL PO PRN (18:06)
[2018-07-31] MEDS ORDERED: MILK OF MAGNESIA PO PRN (18:06)
[2018-07-31] MEDS ORDERED: REGLAN PO PRN (18:06)
[2018-07-31] MEDS ORDERED: PHENERGAN PO PRN (18:08)
--- NOTE | 2018-07-31 18:48 | Cat Scan Report ---
PROCEDURE: CT abdomen and pelvis with contrast. TECHNIQUE: Computerized axial tomography of the abdomen and pelvis was performed after the IV inject ion of iodinated nonionic contrast. CT DOSE LENGTH PRODUCT: 1272.5 mGycm HISTORY: Abdominal pain, GI bleed. COMPARISONS: CT abdomen and pelvis 05/01/2018. FINDINGS: The lung bases are clear. There are no pleural effusions. The heart size is normal. The liver, pancre as and spleen appear normal. The gallbladder is present. There is no biliary dilatation. The adrenal glands are not enlarged. Both kidneys appear normal in size and configuration. There are small bilate ral renal cysts. The abdominal aorta has a normal caliber. There is no retroperitoneal adenopathy. Th e unopacified gastrointestinal tract is unremarkable. The appendix is not visualized and may have bee n removed. The bladder, seminal vesicles and prostate appear normal. There is moderately severe osteo arthritis involving the right hip joint. There is severe disc space narrowing at L4-5. IMPRESSION: Degenerative disease in the right hip and lumbar spine as described. Tiny bilateral debra l cysts. No evidence of acute disease in the abdomen or pelvis. This document is electronically signed by Rodri Pascual MD., July 31 2018 07:46:29 PM ET
[2018-07-31] MEDS ORDERED: DILAUDID ONE (20:05)
[2018-07-31] MEDS ORDERED: ATIVAN ONE (20:05)
[2018-07-31] MEDS ORDERED: NACL 0.9% 250ML 250 ML ONE (20:23)
--- NOTE | 2018-07-31 20:38 | Vascular Lab Report ---
PROCEDURE: VL CAROTID DUPLEX BILAT TECHNIQUE: Duplex Doppler ultrasound of the common, internal and external carotid arteries and the v ertebral arteries was performed bilaterally. Berman scale imaging, velocity spectral waveform analysis, and color flow Doppler were employed. HISTORY: stroke COMPARISONS: None . Note: Measurement of carotid stenosis is based on flow velocity values that correlate with the [place] Symptomatic Carotid Endarterectomy Trial (NASCET) based stenosis criteria using the internal carotid artery diameter as the denominator for stenosis calculation. FINDINGS: RIGHT carotid artery: Velocities: ICA PSV: 102 cm/sec ICA End diastolic: 43 cm/sec CCA PSV: 135 cm/sec IC/CC ratio: 0. 75 Plaque/color flow: No focal plaque or visible stenosis identified. . RIGHT vertebral artery: Antegrade systolic and diastolic flow LEFT carotid artery: Velocities: ICA PSV: 88 cm/sec ICA End diastolic: 40 cm/sec CCA PSV: 127 cm/sec IC/CC ratio: 0.7 0 Plaque/color flow: No focal plaquing or visible stenosis identified. . LEFT vertebral artery: Antegrade systolic and diastolic flow IMPRESSION: Antegrade flow seen in both vertebral arteries. No focal plaquing or stenosis seen in the right or left carotid arteries This document is electronically signed by Joni Lang MD., July 31 2018 09:36:49 PM ET
[2018-07-31] MEDS ORDERED: ATIVAN IV PRN (20:56)
[2018-07-31] MEDS ORDERED: VITAMIN B-1 100 MG, FOLVITE 1 MG, INFUVITE 10 ML in NACL 0.9% 1000 ML 1,000 ML IV ONE (22:00)
[2018-07-31] MEDS: PROTONIX IV SCH (23:00)
[2018-07-31] MEDS ORDERED: D50W (25GM) Syringe IV PRN (23:43)
[2018-08-01] MEDS ORDERED: NACL 0.9% 250ML 250 ML IV ONE (03:51)
[2018-08-01] MEDS ORDERED: DILAUDID IV ONE (03:56)
[2018-08-01] MEDS ORDERED: XYLOCAINE 2% INFILTRATI ONE (07:27)
[2018-08-01] MEDS ORDERED: DIPRIVAN 10 MG/ML IV ONE (07:27)
[2018-08-01] MEDS: HumaLOG SUB-Q SCH ×4 (07:38→21:42)
[2018-08-01] MEDS ORDERED: WATER FOR IRRIG STERILE IR ONE (07:56)
[2018-08-01] MEDS ORDERED: WATER FOR IRRIG STERILE ONE (07:56)
--- NOTE | 2018-08-01 08:15 | Anesthesia Day of Surgery ---
Anesthesia Day of Surgery - Day of Surgery Patient H&P Reviewed: Yes Patient is NPO: Yes Beta Blockers: No Cardiac Clearance: No Pulmonary Clearance: No Ethan's Test: N/A
--- NOTE | 2018-08-01 08:19 | Anesthesia Consultation ---
Anesthesia Consult and Med Hx - Pre-Operative Health Status ASA Pre-Surgery Classification: ASA4 Proposed Anesthetic Plan: General, MAC - Pulmonary Hx Smoking: Yes (CIGARETTES 4 CIGS PD X 33 YRS) Hx Asthma: No Hx Sleep Apnea: No - Cardiovascular System Hx Hypertension: Yes (FOR 2 MTHS) - Central Nervous System Hx Seizures: No CVA: Yes Hx Psychiatric Problems: No - Gastrointestinal Hx Ulcer: Yes (Admitted with active GI Bleed) - Endocrine Hx Renal Disease: No Hx Liver Disease: No Hx Non-Insulin Dependent Diabetes: Yes (diet controlled) - Hematic Hx Anemia: Yes - Other Systems Hx Alcohol Use: Yes (BEER 2 TO 3 DAILY) Hx Cancer: No
[2018-08-01] MEDS: NACL 0.9% 1000 ML 1,000 ML IV SCH ×2 (08:32→17:33)
--- NOTE | 2018-08-01 09:18 | Operative Report ---
Operative Report Operative Report: Date of procedure: 08/01/2018 Procedure: Esophagogastroduodenoscopy with biopsies Preprocedure diagnosis: melena, abdominal pain Post procedure diagnosis: duodenal bulb ulcer, duodenitis, gastritis Endoscopist: Kwabena Buckner MD Anesthesia: Monitored anesthesia care per anesthesia department Medications: Propofol per anesthesia Estimated blood loss: minimal After careful discussion of the nature and purpose of the procedure as well as details the technique risks benefits and alternatives consent was obtained. The patient was placed in the left lateral decubitus position and medicated per anesthesia. The tip of the Olympus 190 video endoscope was passed per orum under direct vision into the esophagus and advanced into the stomach and 2nd part of the duodenum. The 2nd portion of duodenum appeared normal. The duodenal bulb showed erythematous mucosa with edema and one small 6-8 mm white based ulcer without high risk stigmata. The scope was withdrawn into the stomach and the stomach then gently insufflated with air. The antrum showed erythematous mucosa with edema and congestion. Biopsies were obtained from the antrum for pathology. The stomach was further insufflated and the scope was then retroflexed and partially withdrawn. The cardia, fundus, and body of the s tomach revealed normal findings. The scope was then withdrawn in the forward position. The esophagogastric junction was at 40 cm. The esophageal body was normal throughout. The procedure was was well tolerated and the patient was observed in recovery. Impressions: 1. Duodenal bulb ulcer with white clean base without high risk stigmata. Duodenitis in the bulb. 2. Gastritis in the antrum. Biopsies obtained. 3. No sites of active bleeding noted. Plan: 1. Monitor H/H and for signs of active recurrent bleeding. 2. Continue with PPI IV bid and transition to PO tomorrow if H/H stable. 3. Clear liquid diet. 4. Follow up pathology results. 5. Will follow. 6. Avoid NSAIDs
[2018-08-01 09:58] LABS: Hematocrit 26.8 % (35.5-45.6); Mean Corpuscular HGB Conc 34 % (32-34); Mean Corpuscular Volume 103 fl (84-94); Platelet Count 199 K/mm3 (140-440); Red Blood Count 2.59 M/mm3 (3.65-5.03); Red Cell Distribution Width 17.3 % (13.2-15.2)
[2018-08-01] MEDS ORDERED: MULTIVIT MIN PO SCH (10:00)
[2018-08-01] MEDS ORDERED: FOLIC AC PO SCH (10:00)
[2018-08-01] MEDS ORDERED: IRON FUM PO SCH (10:00)
[2018-08-01] MEDS ORDERED: BENTYL ONE (10:03)
[2018-08-01] MEDS: BENTYL PO PRN ×2 (10:04→21:43)
[2018-08-01 10:17] LABS: BUN/Creatinine Ratio 21; Blood Urea Nitrogen 21 mg/dL (9-20); Calcium 8.5 mg/dL (8.4-10.2); Hemolysis Index 4
--- NOTE | 2018-08-01 11:05 | Progress Note ---
Assessment and Plan Assessment and plan: --Acute CVA [possible ]CVA Protocol: Neuro workup in progress Not a candidate for TPA, no aspirin in view of GI bleeding duodenal ulcer and gastritis Statin ,Neurology consulted, following evaluation and recommendations --GI bleeding and melena ; GI evaluated the patient Status post EGD duodenoscopy and biopsy; --Duodenitis/duodenal bulb ulcer; on EGD Avoid NSAIDs, PPI, follow up with GI --Acute gastritis; avoid NSAIDs, PPI Follow GI as outpatient for biopsy reports --Ongoing tobacco use: smoking cessation , cutting patch as needed --History of alcohol use : [facility] protocol, Thiamine,folic acid, multivitamin, supportive care. --Alcohol withdrawal symptoms; closely monitor Continue [facility] protocol --DVT prophylaxis ; SCD to BLE while in bed, hold anticoagulation secondary to GI bleed. Monitor closely and adjust the management as needed History Interval history: Patient seen and examined and medical records reviewed Patient feels better no new complaints Neuro workup is in progress Hospitalist Physical - Constitutional Vitals: Temp Pulse Resp BP Pulse Ox 98.1 F 88 17 127/78 100 08/01/18 09:01 08/01/18 10:31 08/01/18 10:31 08/01/18 10:31 08/01/18 10:31 General appearance: Present: mild distress, well-nourished - EENT Eyes: Present: PERRL, EOM intact - Neck Neck: Present: supple, normal ROM - Respiratory Respiratory effort: normal Respiratory: bilateral: diminished, negative: rales, rhonchi, wheezing - Cardiovascular Rhythm: regular Heart Sounds: Present: S1 & S2 - Extremities Extremities: no ischemia, No edema - Abdominal General gastrointestinal: soft, non-tender, non-distended, normal bowel sounds - Integumentary Integumentary: Present: clear, warm - Psychiatric Psychiatric: appropriate mood/affect, cooperative - Neurologic Neurologic: other (right-sided weakness) Results - Labs CBC & Chem 7: 08/01/18 09:39 08/01/18 09:39 Labs: Laboratory Last Values WBC 5.4 K/mm3 (4.5-11.0) 08/01/18 09:39 RBC 2.59 M/mm3 (3.65-5.03) L 08/01/18 09:39 Hgb 9.0 gm/dl (11.8-15.2) L 08/01/18 09:39 Hct 26.8 % (35.5-45.6) L 08/01/18 09:39 MCV 103 fl (84-94) H 08/01/18 09:39 MCH 35 pg (28-32) H 08/01/18 09:39 MCHC 34 % (32-34) 08/01/18 09:39 RDW 17.3 % (13.2-15.2) H 08/01/18 09:39 Plt Count 199 K/mm3 (140-440) 08/01/18 09:39 Lymph % (Auto) 24.2 % (13.4-35.0) 07/31/18 13:53 [place] % (Auto) 6.5 % (0.0-7.3) 07/31/18 13:53 Eos % (Auto) 1.5 % (0.0-4.3) 07/31/18 13:53 Baso % (Auto) 0.3 % (0.0-1.8) 07/31/18 13:53 Lymph # 1.5 K/mm3 (1.2-5.4) 07/31/18 13:53 [place] # 0.4 K/mm3 (0.0-0.8) 07/31/18 13:53 Eos # 0.1 K/mm3 (0.0-0.4) 07/31/18 13:53 Baso # 0.0 K/mm3 (0.0-0.1) 07/31/18 13:53 Seg Neutrophils % 67.5 % (40.0-70.0) 07/31/18 13:53 Seg Neutrophils # 4.3 K/mm3 (1.8-7.7) 07/31/18 13:53 PT 13.4 Sec. (12.2-14.9) 07/31/18 13:53 INR 0.96 (0.87-1.13) 07/31/18 13:53 APTT 25.8 Sec. (24.2-36.6) 07/31/18 13:53 Sodium 140 mmol/L (137-145) 08/01/18 09:39 Potassium 4.0 mmol/L (3.6-5.0) 08/01/18 09:39 Chloride 105.0 mmol/L (98-107) 08/01/18 09:39 Carbon Dioxide 21 mmol/L (22-30) L 08/01/18 09:39 18 mmol/L 08/01/18 09:39 BUN 21 mg/dL (9-20) H 08/01/18 09:39 1.0 mg/dL (0.8-1.5) 08/01/18 09:39 Estimated GFR > 60 ml/min 08/01/18 09:39 21 % 08/01/18 09:39 Glucose 113 mg/dL (75-100) H 08/01/18 09:39 POC Glucose 112 (70-105) H 08/01/18 08:25 Lactic Acid 0.80 mmol/L (0.7-2.0) 07/31/18 16:30 Calcium 8.5 mg/dL (8.4-10.2) 08/01/18 09:39 Magnesium 1.90 mg/dL (1.7-2.3) 07/31/18 16:30 0.30 mg/dL (0.1-1.2) 07/31/18 13:53 AST 27 units/L (5-40) 07/31/18 13:53 ALT 13 units/L (7-56) 07/31/18 13:53 60 units/L (35-129) 07/31/18 13:53 6.8 g/dL (6.3-8.2) 07/31/18 13:53 3.7 g/dL (3.9-5) L 07/31/18 13:53 1.2 % 07/31/18 13:53 41 units/L (13-60) 07/31/18 17:30 Yellow (Yellow) 07/31/18 Unknown Clear (Clear) 07/31/18 Unknown 8.0 (5.0-7.0) H 07/31/18 Unknown Ur Specific [place] 1.056 (1.003-1.030) H 07/31/18 Unknown <15 mg/dl mg/dL (Negative) 07/31/18 Unknown Neg mg/dL (Negative) 07/31/18 Unknown Tr mg/dL (Negative) 07/31/18 Unknown Neg (Negative) 07/31/18 Unknown Neg (Negative) 07/31/18 Unknown Neg (Negative) 07/31/18 Unknown < 2.0 mg/dL (<2.0) 07/31/18 Unknown Ur Leukocyte Esterase Neg (Negative) 07/31/18 Unknown < 1.0 /HPF (0.0-6.0) 07/31/18 Unknown 2.0 /HPF (0.0-6.0) 07/31/18 Unknown U Epithel Cells (Auto) 4.0 /HPF (0-13.0) 07/31/18 Unknown Presumptive negative 07/31/18 Unknown Presumptive negative 07/31/18 Unknown Ur Barbiturates Screen Presumptive negative 07/31/18 Unknown Ur Phencyclidine Scrn Presumptive negative 07/31/18 Unknown Ur Amphetamines Screen Presumptive negative 07/31/18 Unknown U Benzodiazepines Scrn Presumptive negative 07/31/18 Unknown Presumptive positive 07/31/18 Unknown U Marijuana (THC) Screen Presumptive positive 07/31/18 Unknown Disclamer 07/31/18 Unknown Plasma/Serum Alcohol 0.03 % (0-0.07) 07/31/18 13:53 Blood Type B POSITIVE 07/31/18 16:30 JOY Antibody Screen Negative 07/31/18 16:30 Crossmatch See Detail 07/31/18 16:30 Active Medications - Current Medications Current Medications: Generic Name Dose Route Start Last Admin Trade Name Freq PRN Reason Stop Dose Admin Acetaminophen 650 mg 07/31/18 18:06 Tylenol PO Q4H PRN Pain, Mild (1-3) Atorvastatin Calcium 40 mg 07/31/18 22:00 07/31/18 23:00 Lipitor PO 40 mg QHS ROSY Administration Bisacodyl 10 mg 07/31/18 18:06 Dulcolax MS QDAY PRN Constipation Dextrose 50 ml 07/31/18 23:43 D50w (25gm) Syringe IV PRN PRN Hypoglycemia Dicyclomine HCl 20 mg 07/31/18 18:08 08/01/18 10:04 Bentyl PO 20 mg QID PRN Administration abdominal pain Sodium Chloride 1,000 mls @ 50 mls/hr 08/01/18 08:00 08/01/18 08:32 Nacl 0.9% 1000 Ml IV 50 mls/hr DIRECT ROSY Administration Insulin Human Lispro 0 unit 08/01/18 07:30 08/01/18 07:38 Humalog SUB-Q Not Given ACHS [facility] Protocol Lorazepam 1 mg 07/31/18 18:08 Ativan PO BID PRN Agitation Lorazepam 2 mg 07/31/18 20:56 Ativan IV Q1HR PRN CIWA-Ar 8-15 Magnesium Hydroxide 30 ml 07/31/18 18:06 Milk Of Magnesia PO Q4H PRN Constipation Metoclopramide HCl 10 mg 07/31/18 18:06 Reglan PO Q6H PRN Nausea And Vomiting Multivitamins/Minerals 1 each 08/01/18 10:00 Theragran-M Tab PO QDAY [facility] Ondansetron HCl 4 mg 07/31/18 18:06 Zofran IV Q8H PRN Nausea And Vomiting Pantoprazole Sodium 40 mg 07/31/18 22:00 07/31/18 23:00 Protonix IV 40 mg BID [facility] Administration Promethazine HCl 25 mg 07/31/18 18:06 Phenergan MS Q6H PRN Nausea And Vomiting Promethazine HCl 25 mg 07/31/18 18:08 Phenergan PO Q6HR PRN Nausea Sodium Chloride 10 ml 07/31/18 18:06 Sodium Chloride Flush Syringe 10 Ml IV PRN PRN LINE FLUSH
--- NOTE | 2018-08-01 13:47 | Magnetic Resonance Report ---
MRA HEAD WITHOUT CONTRAST HISTORY: Stroke. Iowr-fy-bilaly imaging with MIP reformations of the tetlin of Rolon is submitted. The arteries appear widely patent and free of hemodynamically significant stenosis, aneurysm or dissection. origin of the right WALL ATTENDANT is noted. IMPRESSION: Normal variant MRA head.
--- NOTE | 2018-08-01 13:47 | Magnetic Resonance Report ---
MRI OF THE BRAIN WITHOUT CONTRAST: HISTORY: Stroke PROCEDURE: Multiplanar, multisequence MR imaging of the brain without IV contrast was performed. FINDINGS: The brain parenchyma signal intensity and its rodrigez white interface are within normal limits on all sequences. No evidence for acute ischemia, hemorrhage or mass. No chronic infarct or extra-axial fluid collection. The midline structures are central. The basal cisterns are patent. Normal ventricular size. The orbital cavities and sella turcica demonstrate no abnormality. The visualized paranasal sinuses and mastoid air cells are well aerated. IMPRESSION: Unremarkable non-enhanced MRI of the brain.
[2018-08-01] MEDS: PROTONIX IV SCH ×2 (17:34→21:43)
[2018-08-01] MEDS: THERAGRAN-M Tab PO SCH (17:35)
--- NOTE | 2018-08-01 17:53 | Consultation ---
History of Present Illness Consult date: 08/01/18 Chief complaint: right sided weakness History of present illness: This is a 53 YO M who presented tot he ED with abdominal pain and right sided weakness. Found to have a GI bleed. MRI did not show acute ischemia. Pt continues to complain of weakness on the right. No real objective sensory loss. Past History Past Medical History: hypertension, other (GI bleed) Past Surgical History: Other (denied). denies: bowel surgery Social history: lives with family, full code Family history: other (no known family hx due to being adopted) Medications and Allergies Allergies Allergy/AdvReac Type Severity Reaction Status Date / Time morphine Allergy Hives Verified 07/31/18 13:23 Home Medications Medication Instructions Recorded Confirmed Last Taken Type Multivit-Min/Iron Fum/Folic AC 1 each PO DAILY 04/01/18 08/01/18 08/01/18 09:00 History [Monocaps Tablet] amLODIPine [Norvasc] 5 mg PO DAILY #30 tab 04/03/18 08/01/18 08/01/18 09:00 Rx Ibuprofen Oral Liqd [Motrin Oral 800 mg PO DAILY 08/01/18 08/01/18 08/01/18 09:00 History Liq 100 mg/5 ml] 800 mg Active Meds: Active Medications Acetaminophen (Tylenol) 650 mg PO Q4H PRN PRN Reason: Pain, Mild (1-3) Atorvastatin Calcium (Lipitor) 40 mg PO QHS ROSY Last Admin: 07/31/18 23:00 Dose: 40 mg Documented by: Bisacodyl (Dulcolax) 10 mg [place] QDAY PRN PRN Reason: Constipation Dextrose (D50w (25gm) Syringe) 50 ml IV PRN PRN PRN Reason: Hypoglycemia Dicyclomine HCl (Bentyl) 20 mg PO QID PRN PRN Reason: abdominal pain Last Admin: 08/01/18 10:04 Dose: 20 mg Documented by: Sodium Chloride (Nacl 0.9% 1000 Ml) 1,000 mls @ 50 mls/hr IV DIRECT ROSY Last Admin: 08/01/18 17:33 Dose: 50 mls/hr Documented by: Insulin Human Lispro (Humalog) 0 unit SUB-Q ACHS ROSY; Protocol Last Admin: 08/01/18 17:35 Dose: Not Given Documented by: Lorazepam (Ativan) 1 mg PO BID PRN PRN Reason: Agitation Lorazepam (Ativan) 2 mg IV Q1HR PRN PRN Reason: CIWA-Ar 8-15 Magnesium Hydroxide (Milk Of Magnesia) 30 ml PO Q4H PRN PRN Reason: Constipation Metoclopramide HCl (Reglan) 10 mg PO Q6H PRN PRN Reason: Nausea And Vomiting Multivitamins/Minerals (Theragran-M Tab) 1 each PO QDAY [facility] Last Admin: 08/01/18 17:35 Dose: Not Given Documented by: Ondansetron HCl (Zofran) 4 mg IV Q8H PRN PRN Reason: Nausea And Vomiting Pantoprazole Sodium (Protonix) 40 mg IV BID [facility] Last Admin: 08/01/18 17:34 Dose: 40 mg Documented by: Promethazine HCl (Phenergan) 25 mg [place] Q6H PRN PRN Reason: Nausea And Vomiting Promethazine HCl (Phenergan) 25 mg PO Q6HR PRN PRN Reason: Nausea Sodium Chloride (Sodium Chloride Flush Syringe 10 Ml) 10 ml IV PRN PRN PRN Reason: LINE FLUSH Review of Systems Musculoskeletal: muscle weakness Physical Examination - Vital Signs Vital Signs: Vital Signs Temp Pulse Resp BP Pulse Ox 98.2 F 130 H 18 133/72 96 07/31/18 13:41 07/31/18 13:41 07/31/18 13:41 07/31/18 13:41 07/31/18 13:41 - Constitutional General appearance: comfortable - EENT EENT: Present: PERRL - Respiratory Respiratory: Present: lungs clear, normal breath sounds - Cardiovascular Cardiovascular: Present: regular rate - Gastrointestinal Gastrointestinal: Present: normoactive bowel sounds - Integumentary Integumentary: Present: normal - Neurologic Cranial nerve examination: PERRL, EOMI, VFF, V1/V2/V3 grossly intact, face symmetric (right motuh doesn't move well), tongue midline Motor examination - right side: 4/5: biceps, triceps, wrist flexion, wrist extension, garde manger, hip flexors, knee extensors, dorsiflexion, toe extension (EHL), plantarflexion Motor examination - left side: 5/5: biceps, triceps, wrist flexion, wrist extension, garde manger, hip flexors, knee extensors, dorsiflexion, toe extension (EHL), plantarflexion Reflexes: 1+: ankle, bicep, knee, tricep Results - Laboratory Findings CBC and BMP: 08/01/18 09:39 08/01/18 09:39 Abnormal Lab Findings: Abnormal Labs 07/31/18 07/31/18 07/31/18 13:53 13:53 15:23 RBC 2.29 L Hgb 8.4 L Hct 24.1 L MCV 105 H MCH 37 H MCHC 35 H RDW Carbon Dioxide 18 L BUN 42 H Glucose 132 H POC Glucose Lactic Acid 2.20 H* Albumin 3.7 L Urine pH Ur Specific [place] Crossmatch 07/31/18 07/31/18 08/01/18 16:30 Unknown 08:25 RBC Hgb Hct MCV MCH MCHC RDW Carbon Dioxide BUN Glucose POC Glucose 112 H Lactic Acid Albumin Urine pH 8.0 H Ur Specific [place] 1.056 H Crossmatch See Detail 08/01/18 08/01/18 09:39 09:39 RBC 2.59 L Hgb 9.0 L Hct 26.8 L MCV 103 H MCH 35 H MCHC RDW 17.3 H Carbon Dioxide 21 L BUN 21 H Glucose 113 H POC Glucose Lactic Acid Albumin Urine pH Ur Specific [place] Crossmatch - Diagnostic Findings Additional findings: MRI/A brain unremarkable Assessment and Plan This is a 53 YO M with right sided weakness, etiology unclear. Recomend: Will order MRI c spine to look for pathology that might be causing his symptoms PT/OT Continue care for his medical issues as you are doing POC discussed with patient, might need therapy might be decompensated after acute illness. He expressed understanding.
[2018-08-02 06:29] LABS: Basophils % (Auto) 0.4 % (0.0-1.8); Eosinophils # (Auto) 0.2 K/mm3 (0.0-0.4); Eosinophils % (Auto) 3.8 % (0.0-4.3); Hematocrit 25.9 % (35.5-45.6); Hemoglobin 8.9 gm/dl (11.8-15.2); Lymphocytes # (Auto) 1.3 K/mm3 (1.2-5.4); Mean Corpuscular HGB Conc 35 % (32-34); Mean Corpuscular Volume 101 fl (84-94); Monocytes # (Auto) 0.4 K/mm3 (0.0-0.8); Monocytes % (Auto) 7.5 % (0.0-7.3); Platelet Count 196 K/mm3 (140-440); Red Blood Count 2.56 M/mm3 (3.65-5.03)
[2018-08-02 06:53] LABS: Alanine Aminotransferase 20 units/L (7-56); Albumin 3.4 g/dL (3.9-5); BUN/Creatinine Ratio 12; Blood Urea Nitrogen 12 mg/dL (9-20); Calcium 8.4 mg/dL (8.4-10.2); Chol/HDL Ratio 2.34 %; HDL Cholesterol 61 mg/dL (40-59); Hemolysis Index 3; LDL Cholesterol,Direct 62 mg/dL (50-130)
[2018-08-02] MEDS: HumaLOG SUB-Q SCH ×4 (07:30→23:45)
[2018-08-02] MEDS: PROTONIX IV SCH (09:40)
[2018-08-02] MEDS: THERAGRAN-M Tab PO SCH (09:40)
--- NOTE | 2018-08-02 14:26 | Gastroenterology Progress Note ---
Assessment and Plan 1. Melena 2.Abdominal (epigastric) pain 3. Coffee ground emesis -H/H stable -continue to monitor H/H and transfuse as needed -no active signs of bleeding overnight or this am -etiology- likely PUD in setting of NSAID use -s/p EGD yesterday that showed a duodenal bulb ulcer with white clean base w/o high risk stigmata, duodenitis, and gastritis -bx results pending-f/u in clinic -clinically, patient is stable. Reports some mild continued epigastric discomfort. No N/V. Tolerating clears. -okay to advance diet to GI soft -continue PPI BID -start on carafate -avoid NSAIDs -cessation of substance (tobacco and cocaine) abuse discussed with patient to help facilitate healing of ulcer- toxicology + for cocaine -continue supportive care -patient okay to be d/c per GI standpoint with f/u in clinic ~2 weeks -will sign off, please call if needed Subjective Date of service: 08/02/18 Principal diagnosis: GI bleed Interval history: No acute distress or active signs of bleeding overnight or this am. Reports some continued abd discomfort but no N/V. Tolerating clears. Objective - Constitutional Vitals: Temp Pulse Resp BP Pulse Ox 98.2 F 87 16 118/70 97 08/02/18 07:41 08/02/18 10:00 08/02/18 07:41 08/02/18 07:41 08/02/18 07:41 General appearance: no acute distress - Respiratory Respiratory: bilateral: CTA - Cardiovascular Rhythm: regular - Gastrointestinal General gastrointestinal: Present: soft, tender, non-distended, normal bowel sounds - Neurologic Neurological: alert and oriented x3 - Labs CBC & Chem 7: 08/02/18 06:07 08/02/18 06:07 Labs: Laboratory Results - last 24 hr 08/01/18 08/01/18 08/02/18 16:50 21:22 06:07 WBC 5.9 RBC 2.56 L Hgb 8.9 L Hct 25.9 L MCV 101 H MCH 35 H MCHC 35 H RDW 16.0 H Plt Count 196 Lymph % (Auto) 22.0 [place] % (Auto) 7.5 H Eos % (Auto) 3.8 Baso % (Auto) 0.4 Lymph # 1.3 [place] # 0.4 Eos # 0.2 Baso # 0.0 Seg Neutrophils % 66.3 Seg Neutrophils # 3.9 Sodium Potassium Chloride Carbon Dioxide Anion Gap BUN Creatinine Estimated GFR BUN/Creatinine Ratio Glucose POC Glucose 97 180 H Calcium Total Bilirubin AST ALT Alkaline Phosphatase Total Protein Albumin Albumin/Globulin Ratio Triglycerides Cholesterol LDL Cholesterol Direct HDL Cholesterol Cholesterol/HDL Ratio 08/02/18 08/02/18 06:07 07:24 WBC RBC Hgb Hct MCV MCH MCHC RDW Plt Count Lymph % (Auto) [place] % (Auto) Eos % (Auto) Baso % (Auto) Lymph # [place] # Eos # Baso # Seg Neutrophils % Seg Neutrophils # Sodium 136 L Potassium 3.8 Chloride 102.7 Carbon Dioxide 22 Anion Gap 15 BUN 12 Creatinine 1.0 Estimated GFR > 60 BUN/Creatinine Ratio 12 Glucose 108 H POC Glucose 117 H Calcium 8.4 Total Bilirubin 0.30 AST 41 H ALT 20 Alkaline Phosphatase 58 Total Protein 6.4 Albumin 3.4 L Albumin/Globulin Ratio 1.1 Triglycerides 159 H Cholesterol 143 LDL Cholesterol Direct 62 HDL Cholesterol 61 H Cholesterol/HDL Ratio 2.34
--- NOTE | 2018-08-02 15:10 | Magnetic Resonance Report ---
MR CERVICAL SPINE WITHOUT CONTRAST HISTORY: Right sided weakness. TECHNIQUE: Axial T2 and T2 gradient. Sagittal T1, T2 and STIR. COMPARISON: None. FINDINGS: There is normal height and alignment of the cervical vertebral bodies. Normal bone marrow signal. There is diffuse disc desiccation throughout the cervical region. Mild disc space narrowing is identified at C6-7. The posterior elements and facet joints are in appropriate relationship. Mild facet arthropathy is noted throughout the cervical region. The prevertebral soft tissues are unremarkable. C2-3: Within normal limits. C3-4: Within normal limits. C4-5: Within normal limits. C5-6: A mild posterior bulging disc is identified which lateralizes to the right side.. C6-7: A large posterior bulging disc is identified within mass effect on the cervical spinal cord. There is moderate central canal stenosis measuring 7 mm in AP dimension. High-grade bilateral neural foraminal narrowing is suspected an estimated 75%. There is focal increased signal in the cervical spinal cord at this level consistent with myelomalacia. C7-T1: Within normal limits. IMPRESSION: Large posterior bulging disc at C6-7 with mass effect on the spinal cord and moderate central canal narrowing. There is increased cord signal at this level suggesting myelomalacia. Bilateral neural foraminal narrowing is also present at this level.
--- NOTE | 2018-08-02 17:51 | Progress Note ---
Assessment and Plan Assessment and plan: --Acute CVA [possible ]CVA Protocol: Acute CVA ruled out Not a candidate for TPA, no aspirin in view of GI bleeding duodenal ulcer and gastritis Statin ,Neurology evaluated the patient, MRI brain unremarkable MRA; normal study Echocardiogram; normal ejection fraction, no shunt Carotid Doppler; no significant stenosis Neurology advised MRI cervical spine MRI cervical spine to be done today --GI bleeding and melena ; GI evaluated the patient Status post EGD duodenoscopy and biopsy; --Duodenitis/duodenal bulb ulcer; on EGD Avoid NSAIDs, PPI, follow up with GI --Acute gastritis; avoid NSAIDs, PPI Follow GI as outpatient for biopsy reports --Ongoing tobacco use: smoking cessation , cutting patch as needed --History of alcohol use : CIWA protocol, Thiamine,folic acid, multivitamin, supportive care. --Alcohol withdrawal symptoms; closely monitor Continue CIWA protocol --DVT prophylaxis ; SCD to BLE while in bed, hold anticoagulation secondary to GI bleed. Monitor closely and adjust the management as needed History Interval history: Patient seen and examined medical records reviewed Patient is scheduled for cervical spine MRI today No overnight events reported Vital signs noted Hospitalist Physical - Constitutional Vitals: Temp Pulse Resp BP Pulse Ox 98.3 F 88 18 150/89 100 08/02/18 16:56 08/02/18 16:56 08/02/18 16:56 08/02/18 16:56 08/02/18 16:56 General appearance: Present: no acute distress, well-nourished - EENT Eyes: Present: PERRL, EOM intact - Neck Neck: Present: supple, normal ROM - Respiratory Respiratory effort: normal Respiratory: bilateral: diminished, negative: rales, rhonchi, wheezing - Cardiovascular Rhythm: regular Heart Sounds: Present: S1 & S2 - Extremities Extremities: no ischemia, No edema - Abdominal General gastrointestinal: soft, non-tender, non-distended, normal bowel sounds - Integumentary Integumentary: Present: clear, warm - Psychiatric Psychiatric: appropriate mood/affect, cooperative - Neurologic Neurologic: other (residual weakness) Results - Labs CBC & Chem 7: 08/02/18 06:07 08/02/18 06:07 Labs: Laboratory Last Values WBC 5.9 K/mm3 (4.5-11.0) 08/02/18 06:07 RBC 2.56 M/mm3 (3.65-5.03) L 08/02/18 06:07 Hgb 8.9 gm/dl (11.8-15.2) L 08/02/18 06:07 Hct 25.9 % (35.5-45.6) L 08/02/18 06:07 MCV 101 fl (84-94) H 08/02/18 06:07 MCH 35 pg (28-32) H 08/02/18 06:07 MCHC 35 % (32-34) H 08/02/18 06:07 RDW 16.0 % (13.2-15.2) H 08/02/18 06:07 Plt Count 196 K/mm3 (140-440) 08/02/18 06:07 Lymph % (Auto) 22.0 % (13.4-35.0) 08/02/18 06:07 [place] % (Auto) 7.5 % (0.0-7.3) H 08/02/18 06:07 Eos % (Auto) 3.8 % (0.0-4.3) 08/02/18 06:07 Baso % (Auto) 0.4 % (0.0-1.8) 08/02/18 06:07 Lymph # 1.3 K/mm3 (1.2-5.4) 08/02/18 06:07 [place] # 0.4 K/mm3 (0.0-0.8) 08/02/18 06:07 Eos # 0.2 K/mm3 (0.0-0.4) 08/02/18 06:07 Baso # 0.0 K/mm3 (0.0-0.1) 08/02/18 06:07 Seg Neutrophils % 66.3 % (40.0-70.0) 08/02/18 06:07 Seg Neutrophils # 3.9 K/mm3 (1.8-7.7) 08/02/18 06:07 PT 13.4 Sec. (12.2-14.9) 07/31/18 13:53 INR 0.96 (0.87-1.13) 07/31/18 13:53 APTT 25.8 Sec. (24.2-36.6) 07/31/18 13:53 Sodium 136 mmol/L (137-145) L 08/02/18 06:07 Potassium 3.8 mmol/L (3.6-5.0) 08/02/18 06:07 Chloride 102.7 mmol/L (98-107) 08/02/18 06:07 Carbon Dioxide 22 mmol/L (22-30) 08/02/18 06:07 15 mmol/L 08/02/18 06:07 BUN 12 mg/dL (9-20) 08/02/18 06:07 1.0 mg/dL (0.8-1.5) 08/02/18 06:07 Estimated GFR > 60 ml/min 08/02/18 06:07 12 % 08/02/18 06:07 Glucose 108 mg/dL (75-100) H 08/02/18 06:07 POC Glucose 148 (70-105) H 08/02/18 17:03 Lactic Acid 0.80 mmol/L (0.7-2.0) 07/31/18 16:30 Calcium 8.4 mg/dL (8.4-10.2) 08/02/18 06:07 Magnesium 1.90 mg/dL (1.7-2.3) 07/31/18 16:30 0.30 mg/dL (0.1-1.2) 08/02/18 06:07 AST 41 units/L (5-40) H 08/02/18 06:07 ALT 20 units/L (7-56) 08/02/18 06:07 58 units/L (35-129) 08/02/18 06:07 6.4 g/dL (6.3-8.2) 08/02/18 06:07 3.4 g/dL (3.9-5) L 08/02/18 06:07 1.1 % 08/02/18 06:07 Triglycerides 159 mg/dL (2-149) H 08/02/18 06:07 Cholesterol 143 mg/dL (50-199) 08/02/18 06:07 62 mg/dL (50-130) 08/02/18 06:07 61 mg/dL (40-59) H 08/02/18 06:07 2.34 % 08/02/18 06:07 41 units/L (13-60) 07/31/18 17:30 Yellow (Yellow) 07/31/18 Unknown Clear (Clear) 07/31/18 Unknown 8.0 (5.0-7.0) H 07/31/18 Unknown Ur Specific [place] 1.056 (1.003-1.030) H 07/31/18 Unknown <15 mg/dl mg/dL (Negative) 07/31/18 Unknown Neg mg/dL (Negative) 07/31/18 Unknown Tr mg/dL (Negative) 07/31/18 Unknown Neg (Negative) 07/31/18 Unknown Neg (Negative) 07/31/18 Unknown Neg (Negative) 07/31/18 Unknown < 2.0 mg/dL (<2.0) 07/31/18 Unknown Ur Leukocyte Esterase Neg (Negative) 07/31/18 Unknown < 1.0 /HPF (0.0-6.0) 07/31/18 Unknown 2.0 /HPF (0.0-6.0) 07/31/18 Unknown U Epithel Cells (Auto) 4.0 /HPF (0-13.0) 07/31/18 Unknown Presumptive negative 07/31/18 Unknown Presumptive negative 07/31/18 Unknown Ur Barbiturates Screen Presumptive negative 07/31/18 Unknown Ur Phencyclidine Scrn Presumptive negative 07/31/18 Unknown Ur Amphetamines Screen Presumptive negative 07/31/18 Unknown U Benzodiazepines Scrn Presumptive negative 07/31/18 Unknown Presumptive positive 07/31/18 Unknown U Marijuana (THC) Screen Presumptive positive 07/31/18 Unknown Disclamer 07/31/18 Unknown Plasma/Serum Alcohol 0.03 % (0-0.07) 07/31/18 13:53 Blood Type B POSITIVE 07/31/18 16:30 JOY Antibody Screen Negative 07/31/18 16:30 Crossmatch See Detail 07/31/18 16:30 Active Medications - Current Medications Current Medications: Generic Name Dose Route Start Last Admin Trade Name Freq PRN Reason Stop Dose Admin Acetaminophen 650 mg 07/31/18 18:06 Tylenol PO Q4H PRN Pain, Mild (1-3) Atorvastatin Calcium 40 mg 07/31/18 22:00 08/01/18 21:43 Lipitor PO 40 mg QHS ROSY Administration Bisacodyl 10 mg 07/31/18 18:06 Dulcolax [place] QDAY PRN Constipation Dextrose 50 ml 07/31/18 23:43 D50w (25gm) Syringe IV PRN PRN Hypoglycemia Dicyclomine HCl 20 mg 07/31/18 18:08 08/01/18 21:43 Bentyl PO 20 mg QID PRN Administration abdominal pain Sodium Chloride 1,000 mls @ 50 mls/hr 08/01/18 08:00 08/01/18 17:33 Nacl 0.9% 1000 Ml IV 50 mls/hr DIRECT ROSY Administration Insulin Human Lispro 0 unit 08/01/18 07:30 08/02/18 07:30 Humalog SUB-Q Not Given [facility] Protocol Lorazepam 1 mg 07/31/18 18:08 Ativan PO BID PRN Agitation Lorazepam 2 mg 07/31/18 20:56 Ativan IV Q1HR PRN CIWA-Ar 8-15 Magnesium Hydroxide 30 ml 07/31/18 18:06 Milk Of Magnesia PO Q4H PRN Constipation Metoclopramide HCl 10 mg 07/31/18 18:06 Reglan PO Q6H PRN Nausea And Vomiting Multivitamins/Minerals 1 each 08/01/18 10:00 08/02/18 09:40 Theragran-M Tab PO 1 each QDAY ROSY Administration Ondansetron HCl 4 mg 07/31/18 18:06 Zofran IV Q8H PRN Nausea And Vomiting Pantoprazole Sodium 40 mg 08/02/18 22:00 Protonix PO BID ROSY Promethazine HCl 25 mg 07/31/18 18:06 Phenergan [place] Q6H PRN Nausea And Vomiting Promethazine HCl 25 mg 07/31/18 18:08 Phenergan PO Q6HR PRN Nausea Sodium Chloride 10 ml 07/31/18 18:06 08/01/18 21:43 Sodium Chloride Flush Syringe 10 Ml IV 10 ml PRN PRN Administration LINE FLUSH Sucralfate 1 gm 08/02/18 16:30 Carafate PO [facility] Nutrition/Malnutrition Assess - Dietary Evaluation Nutrition/Malnutrition Findings: Nutrition Notes Start: 08/02/18 15:22 Freq: Status: Active Protocol: Document 08/02/18 15:22 RM (Rec: 08/02/18 15:29 RM [id number]) Nutrition Notes Need for Assessment generated from: [facility] Initial or Follow up Assessment Current Diagnosis Stroke Other Pertinent Diagnosis GI bleed, Hx alcohol abuse, Acute gastritis Current Diet GI soft Labs/Tests Reviewed Pertinent Medications Reviewed Height 5 ft 7 in Weight 74.84 kg [place] Body Weight (kg) 67.27 BMI 25.8 Subjective/Other Information Screened for malnutrition. Clear liquid diet in place earlier today. GI soft ordered later today. Pt not in room at time of visit. Per tech pt has only drunk some water. Percent of energy/protein needs met: 0%/0% Burn Absent Trauma Absent #1 Nutrition Diagnosis Inadequate oral intake Etiology CVA, gastritis, Hx alcohol use As Evidenced by Signs and Symptoms pt tech statement that pt has only drunk water Is patient on ventilator? No Is Patient Ambulatory and/or Out of Bed Yes REE-([facility]-ambulatory/OOB) [ 2004.639 [id number]] Calculation Used for Recommendations [facility] Additional Notes Protein Needs: 75-90g (1-1.2g/ kg) Fluid Needs: 1 ml/kcal Nutrition Intervention Change Diet Order: Continue current Add Supplement/Snack (indicate name/kcal Ensure Clear 1 daily /protein ) Provides kCal: 240 Provides Protein (gm) 8 Goal #1 Meet at least 75% of calorie and protein needs via PO and ONS intakes Anticipated Discharge Needs: Unable to determine at this time Follow-Up By: 08/04/18 Additional Comments Follow for PO and ONS intakes, malnutrition assessment
--- NOTE | 2018-08-02 18:01 | Progress Note ---
Assessment and Plan This is a 53 YO M with right sided weakness, large bulging disk at C6-7. Recomend: Spoke to the hospitalist, will have pt transferred for neurosurgical evaluation Decadron , follow blood glucose closely PT/OT Continue care for his medical issues as you are doing POC discussed with patient, he expressed understanding. Subjective Date of service: 08/02/18 Principal diagnosis: GI bleed Interval history: Following up, MRI cervical spine ordered Objective - Vital Sign Vital Signs - 12hr 08/02/18 08/02/18 08/02/18 07:41 10:00 16:56 Temperature 98.2 F 98.3 F Pulse Rate 92 H 87 88 Respiratory 16 18 Rate Blood Pressure 118/70 150/89 O2 Sat by Pulse 97 100 Oximetry - General Apperance Constitutional: comfortable - EENT EENT: PERRL, mucous membranes moist - Respiratory Respiratory: chest non-tender, lungs clear - Gastrointestinal Gastrointestinal: normoactive bowel sounds - Integumentary Integumentary: normal - Neurologic Cranial nerve examination: PERRL, EOMI, face symmetric Motor examination - right side: 4/5: biceps, triceps, wrist flexion, wrist extension, remnant sorter, hip flexors, knee extensors, dorsiflexion, toe extension (EHL), plantarflexion Motor examination - left side: 5/5: biceps, triceps, wrist flexion, wrist extension, remnant sorter, hip flexors, knee extensors, dorsiflexion, toe extension (EHL), plantarflexion - Laboratory Findings CBC and BMP: 08/02/18 06:07 08/02/18 06:07 Abnormal Lab Findings: Abnormal Labs 07/31/18 07/31/18 07/31/18 13:53 13:53 15:23 RBC 2.29 L Hgb 8.4 L Hct 24.1 L MCV 105 H MCH 37 H MCHC 35 H RDW [place] % (Auto) Sodium Carbon Dioxide 18 L BUN 42 H Glucose 132 H POC Glucose Lactic Acid 2.20 H* AST Albumin 3.7 L Triglycerides HDL Cholesterol Urine pH Ur Specific [place] Crossmatch 07/31/18 07/31/18 08/01/18 16:30 Unknown 08:25 RBC Hgb Hct MCV MCH MCHC RDW [place] % (Auto) Sodium Carbon Dioxide BUN Glucose POC Glucose 112 H Lactic Acid AST Albumin Triglycerides HDL Cholesterol Urine pH 8.0 H Ur Specific [place] 1.056 H Crossmatch See Detail 08/01/18 08/01/18 08/01/18 09:39 09:39 21:22 RBC 2.59 L Hgb 9.0 L Hct 26.8 L MCV 103 H MCH 35 H MCHC RDW 17.3 H [place] % (Auto) Sodium Carbon Dioxide 21 L BUN 21 H Glucose 113 H POC Glucose 180 H Lactic Acid AST Albumin Triglycerides HDL Cholesterol Urine pH Ur Specific [place] Crossmatch 08/02/18 08/02/18 08/02/18 06:07 06:07 07:24 RBC 2.56 L Hgb 8.9 L Hct 25.9 L MCV 101 H MCH 35 H MCHC 35 H RDW 16.0 H [place] % (Auto) 7.5 H Sodium 136 L Carbon Dioxide BUN Glucose 108 H POC Glucose 117 H Lactic Acid AST 41 H Albumin 3.4 L Triglycerides 159 H HDL Cholesterol 61 H Urine pH Ur Specific [place] Crossmatch 08/02/18 08/02/18 11:47 17:03 RBC Hgb Hct MCV MCH MCHC RDW [place] % (Auto) Sodium Carbon Dioxide BUN Glucose POC Glucose 170 H 148 H Lactic Acid AST Albumin Triglycerides HDL Cholesterol Urine pH Ur Specific [place] Crossmatch - Diagnostic Findings Additional findings: MRI cervical spine with large bulging disk lower cervical
--- NOTE | 2018-08-02 18:15 | Event Note ---
Date: 08/02/18 MRI C-spine findings discussed with neurologist Dr. Gianni Cassidy Rec Neurosurgical consultation, no neurosurgery services available As patient's neuro symptoms are chronic and right-sided weakness symptoms are chronic Advised Decadron, strict control of blood sugars, physical therapy occupational therapy Check tomorrow for Neurosurgical consultation, possible transfer if needed. However patient has symptoms for the last 3 or 4 months or even longer Cervical CT done on 04/17/2018 showed severe disc space narrowing at C6-C7 No acute abnormality of the cervical spine reported at that time Will follow PT and OT evaluation, review his MRI findings And recommend outpatient neurosurgery/orthopedic/neurology follow-up Discussed the above plan with the patient. Patient tolerated physical therapy today
[2018-08-02] MEDS: CARAFATE PO SCH ×2 (18:43→22:40)
[2018-08-02] MEDS: PROTONIX PO SCH (22:40)
[2018-08-02] MEDS: ATIVAN PO PRN (22:44)
[2018-08-02] MEDS: DECADRON IV SCH (23:47)
[2018-08-02] MEDS: BENTYL PO PRN (23:47)
[2018-08-03] MEDS: DECADRON IV SCH ×3 (06:46→18:09)
[2018-08-03] MEDS: HumaLOG SUB-Q SCH ×4 (09:26→22:25)
[2018-08-03] MEDS: THERAGRAN-M Tab PO SCH (09:27)
[2018-08-03] MEDS: CARAFATE PO SCH ×4 (09:27→22:25)
[2018-08-03] MEDS: PROTONIX PO SCH ×2 (09:27→22:25)
--- NOTE | 2018-08-03 14:27 | Progress Note ---
Subjective Date of service: 08/03/18 Principal diagnosis: GI bleed Interval history: radiology wanted me to go over the films to discuss with Dr. Rai.. spinal osteoarthritis at C6-7 WHICH IS CHRONIC mri DOES NOT SHOW SPINAL CORD EDEMA ... MILD SPINAL STENOSIS HE IS NOT SURGICAL CANDIDATE WOULD D/C AND FOLLOW UP WITH ORTH USE CANE... TAKE PT FOR GAIT TRAINING TO AVOID FALLS...THE SYMPTOMS THAT WERE SUGGESTIVE OF STROKE ARE FROM BILATERAL C7 RADICULOPATHY BILATERAL HE HAS NOT HAD STROKE BASED ON HX OF GI BLEEDING CHRONIC STERIOD THERAPY SHOULD BE AVOIDED the condition was present on admission and related to fall several months back and is in phase of recovery Thanks Objective - Vital Sign Vital Signs - 12hr 08/03/18 08/03/18 08/03/18 03:57 07:52 12:06 Temperature 98.2 F 97.9 F 98.1 F Pulse Rate 108 H 97 H 108 H Respiratory 18 18 18 Rate Blood Pressure 106/50 142/89 138/88 O2 Sat by Pulse 100 100 99 Oximetry - Laboratory Findings CBC and BMP: 08/02/18 06:07 08/02/18 06:07 Abnormal Lab Findings: Abnormal Labs 07/31/18 07/31/18 07/31/18 13:53 13:53 15:23 RBC 2.29 L Hgb 8.4 L Hct 24.1 L MCV 105 H MCH 37 H MCHC 35 H RDW [place] % (Auto) Sodium Carbon Dioxide 18 L BUN 42 H Glucose 132 H POC Glucose Lactic Acid 2.20 H* AST Albumin 3.7 L Triglycerides HDL Cholesterol Urine pH Ur Specific [place] Crossmatch 07/31/18 07/31/18 08/01/18 16:30 Unknown 08:25 RBC Hgb Hct MCV MCH MCHC RDW [place] % (Auto) Sodium Carbon Dioxide BUN Glucose POC Glucose 112 H Lactic Acid AST Albumin Triglycerides HDL Cholesterol Urine pH 8.0 H Ur Specific [place] 1.056 H Crossmatch See Detail 08/01/18 08/01/18 08/01/18 09:39 09:39 21:22 RBC 2.59 L Hgb 9.0 L Hct 26.8 L MCV 103 H MCH 35 H MCHC RDW 17.3 H [place] % (Auto) Sodium Carbon Dioxide 21 L BUN 21 H Glucose 113 H POC Glucose 180 H Lactic Acid AST Albumin Triglycerides HDL Cholesterol Urine pH Ur Specific [place] Crossmatch 08/02/18 08/02/18 08/02/18 06:07 06:07 07:24 RBC 2.56 L Hgb 8.9 L Hct 25.9 L MCV 101 H MCH 35 H MCHC 35 H RDW 16.0 H [place] % (Auto) 7.5 H Sodium 136 L Carbon Dioxide BUN Glucose 108 H POC Glucose 117 H Lactic Acid AST 41 H Albumin 3.4 L Triglycerides 159 H HDL Cholesterol 61 H Urine pH Ur Specific [place] Crossmatch 08/02/18 08/02/18 08/02/18 11:47 17:03 23:32 RBC Hgb Hct MCV MCH MCHC RDW [place] % (Auto) Sodium Carbon Dioxide BUN Glucose POC Glucose 170 H 148 H 206 H Lactic Acid AST Albumin Triglycerides HDL Cholesterol Urine pH Ur Specific [place] Crossmatch 08/03/18 08/03/18 08:43 12:10 RBC Hgb Hct MCV MCH MCHC RDW [place] % (Auto) Sodium Carbon Dioxide BUN Glucose POC Glucose 186 H 233 H Lactic Acid AST Albumin Triglycerides HDL Cholesterol Urine pH Ur Specific [place] Crossmatch
--- NOTE | 2018-08-03 16:12 | Progress Note ---
Assessment and Plan Assessment and plan: --Acute CVA [possible ]CVA Protocol: Acute CVA ruled out Not a candidate for TPA, no aspirin in view of GI bleeding duodenal ulcer and gastritis Statin ,Neurology evaluated the patient, MRI brain unremarkable MRA; normal study Echocardiogram; normal ejection fraction, no shunt Carotid Doppler; no significant stenosis Neurology advised MRI cervical spine MRI cervical spine findings reviewed Neurologist Dr. Gianni Cassidy advised IV Decadron, neurosurgery consult Neurosurgery service is not available, today discussed with neurologist Dr. Blackmon and back Reviewed the MRI with the radiologist, as patient symptoms are chronic , no indication For immediate neurosurgical consultation, will advise patient to see orthopedic/neurosurgery as outpatient Upon discharge Patient tolerated physical therapy occupational therapy, and no changes in the right-sided weakness --Patient has duodenitis/duodenal bulb ulcer on EGD High risk for bleeding with steroids, Dr. Hill is no indication for steroids will DC Decadron and closely monitor --GI bleeding and melena ; GI evaluated the patient Status post EGD duodenoscopy and biopsy; --Duodenitis/duodenal bulb ulcer; on EGD Avoid NSAIDs, PPI, follow up with GI --Acute gastritis; avoid NSAIDs, PPI Follow GI as outpatient for biopsy reports --Ongoing tobacco use: smoking cessation , cutting patch as needed --History of alcohol use : CIWA protocol, Thiamine,folic acid, multivitamin, supportive care. --Alcohol withdrawal symptoms; closely monitor Continue CIWA protocol --DVT prophylaxis ; SCD to BLE while in bed, hold anticoagulation secondary to GI bleed. Monitor closely and adjust the management as needed History Interval history: Patient seen and examined medical records reviewed No new events reported by the nursing Patient feels better no new complaints Tolerating physical therapy Vital signs noted Hospitalist Physical - Constitutional Vitals: Temp Pulse Resp BP Pulse Ox 98.1 F 108 H 18 138/88 99 08/03/18 12:06 08/03/18 12:06 08/03/18 12:06 08/03/18 12:08/03/18 12:06 General appearance: Present: no acute distress, well-nourished - EENT Eyes: Present: PERRL, EOM intact - Neck Neck: Present: supple, normal ROM - Respiratory Respiratory effort: normal Respiratory: negative: rales, rhonchi, wheezing - Cardiovascular Rhythm: regular Heart Sounds: Present: S1 & S2 - Extremities Extremities: no ischemia, No edema - Abdominal General gastrointestinal: soft, non-tender, non-distended, normal bowel sounds - Integumentary Integumentary: Present: clear, warm - Psychiatric Psychiatric: appropriate mood/affect, cooperative - Neurologic Neurologic: other (residual right-sided minimal weakness) Results - Labs CBC & Chem 7: 08/02/18 06:07 08/02/18 06:07 Labs: Laboratory Last Values WBC 5.9 K/mm3 (4.5-11.0) 08/02/18 06:07 RBC 2.56 M/mm3 (3.65-5.03) L 08/02/18 06:07 Hgb 8.9 gm/dl (11.8-15.2) L 08/02/18 06:07 Hct 25.9 % (35.5-45.6) L 08/02/18 06:07 MCV 101 fl (84-94) H 08/02/18 06:07 MCH 35 pg (28-32) H 08/02/18 06:07 MCHC 35 % (32-34) H 08/02/18 06:07 RDW 16.0 % (13.2-15.2) H 08/02/18 06:07 Plt Count 196 K/mm3 (140-440) 08/02/18 06:07 Lymph % (Auto) 22.0 % (13.4-35.0) 08/02/18 06:07 [place] % (Auto) 7.5 % (0.0-7.3) H 08/02/18 06:07 Eos % (Auto) 3.8 % (0.0-4.3) 08/02/18 06:07 Baso % (Auto) 0.4 % (0.0-1.8) 08/02/18 06:07 Lymph # 1.3 K/mm3 (1.2-5.4) 08/02/18 06:07 [place] # 0.4 K/mm3 (0.0-0.8) 08/02/18 06:07 Eos # 0.2 K/mm3 (0.0-0.4) 08/02/18 06:07 Baso # 0.0 K/mm3 (0.0-0.1) 08/02/18 06:07 Seg Neutrophils % 66.3 % (40.0-70.0) 08/02/18 06:07 Seg Neutrophils # 3.9 K/mm3 (1.8-7.7) 08/02/18 06:07 PT 13.4 Sec. (12.2-14.9) 07/31/18 13:53 INR 0.96 (0.87-1.13) 07/31/18 13:53 APTT 25.8 Sec. (24.2-36.6) 07/31/18 13:53 Sodium 136 mmol/L (137-145) L 08/02/18 06:07 Potassium 3.8 mmol/L (3.6-5.0) 08/02/18 06:07 Chloride 102.7 mmol/L (98-107) 08/02/18 06:07 Carbon Dioxide 22 mmol/L (22-30) 08/02/18 06:07 15 mmol/L 08/02/18 06:07 BUN 12 mg/dL (9-20) 08/02/18 06:07 1.0 mg/dL (0.8-1.5) 08/02/18 06:07 Estimated GFR > 60 ml/min 08/02/18 06:07 12 % 08/02/18 06:07 Glucose 108 mg/dL (75-100) H 08/02/18 06:07 POC Glucose 233 (70-105) H 08/03/18 12:10 Lactic Acid 0.80 mmol/L (0.7-2.0) 07/31/18 16:30 Calcium 8.4 mg/dL (8.4-10.2) 08/02/18 06:07 Magnesium 1.90 mg/dL (1.7-2.3) 07/31/18 16:30 0.30 mg/dL (0.1-1.2) 08/02/18 06:07 AST 41 units/L (5-40) H 08/02/18 06:07 ALT 20 units/L (7-56) 08/02/18 06:07 58 units/L (35-129) 08/02/18 06:07 6.4 g/dL (6.3-8.2) 08/02/18 06:07 3.4 g/dL (3.9-5) L 08/02/18 06:07 1.1 % 08/02/18 06:07 Triglycerides 159 mg/dL (2-149) H 08/02/18 06:07 Cholesterol 143 mg/dL (50-199) 08/02/18 06:07 62 mg/dL (50-130) 08/02/18 06:07 61 mg/dL (40-59) H 08/02/18 06:07 2.34 % 08/02/18 06:07 41 units/L (13-60) 07/31/18 17:30 Yellow (Yellow) 07/31/18 Unknown Clear (Clear) 07/31/18 Unknown 8.0 (5.0-7.0) H 07/31/18 Unknown Ur Specific [place] 1.056 (1.003-1.030) H 07/31/18 Unknown <15 mg/dl mg/dL (Negative) 07/31/18 Unknown Neg mg/dL (Negative) 07/31/18 Unknown Tr mg/dL (Negative) 07/31/18 Unknown Neg (Negative) 07/31/18 Unknown Neg (Negative) 07/31/18 Unknown Neg (Negative) 07/31/18 Unknown < 2.0 mg/dL (<2.0) 07/31/18 Unknown Ur Leukocyte Esterase Neg (Negative) 07/31/18 Unknown < 1.0 /HPF (0.0-6.0) 07/31/18 Unknown 2.0 /HPF (0.0-6.0) 07/31/18 Unknown U Epithel Cells (Auto) 4.0 /HPF (0-13.0) 07/31/18 Unknown Presumptive negative 07/31/18 Unknown Presumptive negative 07/31/18 Unknown Ur Barbiturates Screen Presumptive negative 07/31/18 Unknown Ur Phencyclidine Scrn Presumptive negative 07/31/18 Unknown Ur Amphetamines Screen Presumptive negative 07/31/18 Unknown U Benzodiazepines Scrn Presumptive negative 07/31/18 Unknown Presumptive positive 07/31/18 Unknown U Marijuana (THC) Screen Presumptive positive 07/31/18 Unknown Disclamer 07/31/18 Unknown Plasma/Serum Alcohol 0.03 % (0-0.07) 07/31/18 13:53 Blood Type B POSITIVE 07/31/18 16:30 JOY Antibody Screen Negative 07/31/18 16:30 Crossmatch See Detail 07/31/18 16:30 Active Medications - Current Medications Current Medications: Generic Name Dose Route Start Last Admin Trade Name Freq PRN Reason Stop Dose Admin Acetaminophen 650 mg 07/31/18 18:06 Tylenol PO Q4H PRN Pain, Mild (1-3) Atorvastatin Calcium 40 mg 07/31/18 22:00 08/02/18 22:39 Lipitor PO 40 mg QHS ROSY Administration Bisacodyl 10 mg 07/31/18 18:06 Dulcolax [place] QDAY PRN Constipation Dexamethasone 4 mg 08/03/18 00:00 08/03/18 06:46 Decadron IV 4 mg Q6HR ROSY Administration Dextrose 50 ml 07/31/18 23:43 D50w (25gm) Syringe IV PRN PRN Hypoglycemia Dicyclomine HCl 20 mg 07/31/18 18:08 08/02/18 23:47 Bentyl PO 20 mg QID PRN Administration abdominal pain Sodium Chloride 1,000 mls @ 50 mls/hr 08/01/18 08:00 08/01/18 17:33 Nacl 0.9% 1000 Ml IV 50 mls/hr DIRECT ROSY Administration Insulin Human Lispro 0 unit 08/01/18 07:30 08/03/18 09:26 Humalog SUB-Q 2 unit ACHS ROSY Administration Protocol Lorazepam 1 mg 07/31/18 18:08 08/02/18 22:44 Ativan PO 1 mg BID PRN Administration Agitation Lorazepam 2 mg 07/31/18 20:56 Ativan IV Q1HR PRN CIWA-Ar 8-15 Magnesium Hydroxide 30 ml 07/31/18 18:06 Milk Of Magnesia PO Q4H PRN Constipation Metoclopramide HCl 10 mg 07/31/18 18:06 Reglan PO Q6H PRN Nausea And Vomiting Multivitamins/Minerals 1 each 08/01/18 10:00 08/03/18 09:27 Theragran-M Tab PO 1 each QDAY ROSY Administration Ondansetron HCl 4 mg 07/31/18 18:06 Zofran IV Q8H PRN Nausea And Vomiting Pantoprazole Sodium 40 mg 08/02/18 22:00 08/03/18 09:27 Protonix PO 40 mg BID ROSY Administration Promethazine HCl 25 mg 07/31/18 18:06 Phenergan [place] Q6H PRN Nausea And Vomiting Promethazine HCl 25 mg 07/31/18 18:08 Phenergan PO Q6HR PRN Nausea Sodium Chloride 10 ml 07/31/18 18:06 08/01/18 21:43 Sodium Chloride Flush Syringe 10 Ml IV 10 ml PRN PRN Administration LINE FLUSH Sucralfate 1 gm 08/02/18 16:30 08/03/18 09:27 Carafate PO 1 gm ACHS ROSY Administration Nutrition/Malnutrition Assess - Dietary Evaluation Nutrition/Malnutrition Findings: Nutrition Notes Start: 08/02/18 15:22 Freq: Status: Active Protocol: Document 08/02/18 15:22 RM (Rec: 08/02/18 15:29 RM [id number]) Nutrition Notes Need for Assessment generated from: [facility] Initial or Follow up Assessment Current Diagnosis Stroke Other Pertinent Diagnosis GI bleed, Hx alcohol abuse, Acute gastritis Current Diet GI soft Labs/Tests Reviewed Pertinent Medications Reviewed Height 5 ft 7 in Weight 74.84 kg [place] Body Weight (kg) 67.27 BMI 25.8 Subjective/Other Information Screened for malnutrition. Clear liquid diet in place earlier today. GI soft ordered later today. Pt not in room at time of visit. Per tech pt has only drunk some water. Percent of energy/protein needs met: 0%/0% Burn Absent Trauma Absent #1 Nutrition Diagnosis Inadequate oral intake Etiology CVA, gastritis, Hx alcohol use As Evidenced by Signs and Symptoms pt tech statement that pt has only drunk water Is patient on ventilator? No Is Patient Ambulatory and/or Out of Bed Yes REE-([facility]-ambulatory/OOB) [ 2004.639 [id number]] Calculation Used for Recommendations [facility] Additional Notes Protein Needs: 75-90g (1-1.2g/ kg) Fluid Needs: 1 ml/kcal Nutrition Intervention Change Diet Order: Continue current Add Supplement/Snack (indicate name/kcal Ensure Clear 1 daily /protein ) Provides kCal: 240 Provides Protein (gm) 8 Goal #1 Meet at least 75% of calorie and protein needs via PO and ONS intakes Anticipated Discharge Needs: Unable to determine at this time Follow-Up By: 08/04/18 Additional Comments Follow for PO and ONS intakes, malnutrition assessment
[2018-08-03] MEDS: ATIVAN PO PRN (22:26)
[2018-08-04] MEDS: HumaLOG SUB-Q SCH ×4 (09:11→21:39)
[2018-08-04] MEDS: PROTONIX PO SCH ×2 (09:13→21:20)
[2018-08-04] MEDS: CARAFATE PO SCH ×4 (09:13→21:20)
[2018-08-04] MEDS: THERAGRAN-M Tab PO SCH (09:13)
--- NOTE | 2018-08-04 17:49 | Progress Note ---
Assessment and Plan Assessment and plan: --Possible CVA Protocol: Acute CVA ruled out Not a candidate for TPA, no aspirin in view of GI bleeding duodenal ulcer and gastritis Statin ,Neurology evaluated the patient, MRI brain unremarkable MRA; normal study Echocardiogram; normal ejection fraction, no shunt Carotid Doppler; no significant stenosis Neurology advised MRI cervical spine MRI cervical spine findings reviewed Neurologist Dr. Gianni Cassidy advised IV Decadron, neurosurgery consult Neurosurgery service is not available, Today I discussed with neurologist Dr. Sánchez Reviewed the MRI with the radiologist, as patient symptoms are chronic , no indication For immediate neurosurgical consultation, will advise patient to see orthopedic/neurosurgery as outpatient Patient tolerated physical therapy occupational therapy, and no changes in the right-sided weakness --Chronic spinal osteoarthritis at C6 to C7; Patient has chronic neck problems for many months neurologist,C6-C7 and does not show spinal cord edema mild spinal stenosis is not a surgical candidate No need for steroids which were discontinued Patient tolerating physical therapy, case management to set up. Home physical therapy --Patient has duodenitis/duodenal bulb ulcer on EGD High risk for bleeding with steroids, Dr. Hill is no indication for steroids will DC Decadron and closely monitor --GI bleeding and melena ; GI evaluated the patient Status post EGD duodenoscopy and biopsy; --Duodenitis/duodenal bulb ulcer; on EGD Avoid NSAIDs, PPI, follow up with GI --Acute gastritis; avoid NSAIDs, PPI Follow GI as outpatient for biopsy reports --Ongoing tobacco use: smoking cessation , cutting patch as needed --History of alcohol use : CIWA protocol, Thiamine,folic acid, multivitamin, supportive care. --Alcohol withdrawal symptoms; closely monitor Continue CINM protocol --DVT prophylaxis ; SCD to BLE while in bed, hold anticoagulation secondary to GI bleed. Monitor closely and adjust the management possible discharged tomorrow if stable Patient would follow with primary care physician, neurologist, orthopedic/neurosurgery upon discharge History Interval history: Patient seen and examined. Medical records reviewed Patient feels better no new complaints Vital signs noted Hospitalist Physical - Constitutional Vitals: Temp Pulse Resp BP Pulse Ox 98.5 F 93 H 18 130/83 100 08/04/18 16:16 08/04/18 16:16 08/04/18 16:16 08/04/18 16:16 08/04/18 16:16 General appearance: Present: no acute distress, well-nourished - EENT Eyes: Present: PERRL, EOM intact - Neck Neck: Present: supple, normal ROM - Respiratory Respiratory effort: normal Respiratory: negative: rales, rhonchi, wheezing - Cardiovascular Rhythm: regular Heart Sounds: Present: S1 & S2 - Extremities Extremities: no ischemia, No edema - Abdominal General gastrointestinal: soft, non-tender, non-distended, normal bowel sounds - Integumentary Integumentary: Present: clear, warm - Psychiatric Psychiatric: appropriate mood/affect, cooperative - Neurologic Neurologic: CNII-XII intact, moves all extremities, other (minimal right-sided weakness) Results - Labs CBC & Chem 7: 08/02/18 06:07 08/02/18 06:07 Labs: Laboratory Last Values WBC 5.9 K/mm3 (4.5-11.0) 08/02/18 06:07 RBC 2.56 M/mm3 (3.65-5.03) L 08/02/18 06:07 Hgb 8.9 gm/dl (11.8-15.2) L 08/02/18 06:07 Hct 25.9 % (35.5-45.6) L 08/02/18 06:07 MCV 101 fl (84-94) H 08/02/18 06:07 MCH 35 pg (28-32) H 08/02/18 06:07 MCHC 35 % (32-34) H 08/02/18 06:07 RDW 16.0 % (13.2-15.2) H 08/02/18 06:07 Plt Count 196 K/mm3 (140-440) 08/02/18 06:07 Lymph % (Auto) 22.0 % (13.4-35.0) 08/02/18 06:07 [place] % (Auto) 7.5 % (0.0-7.3) H 08/02/18 06:07 Eos % (Auto) 3.8 % (0.0-4.3) 08/02/18 06:07 Baso % (Auto) 0.4 % (0.0-1.8) 08/02/18 06:07 Lymph # 1.3 K/mm3 (1.2-5.4) 08/02/18 06:07 [place] # 0.4 K/mm3 (0.0-0.8) 08/02/18 06:07 Eos # 0.2 K/mm3 (0.0-0.4) 08/02/18 06:07 Baso # 0.0 K/mm3 (0.0-0.1) 08/02/18 06:07 Seg Neutrophils % 66.3 % (40.0-70.0) 08/02/18 06:07 Seg Neutrophils # 3.9 K/mm3 (1.8-7.7) 08/02/18 06:07 PT 13.4 Sec. (12.2-14.9) 07/31/18 13:53 INR 0.96 (0.87-1.13) 07/31/18 13:53 APTT 25.8 Sec. (24.2-36.6) 07/31/18 13:53 Sodium 136 mmol/L (137-145) L 08/02/18 06:07 Potassium 3.8 mmol/L (3.6-5.0) 08/02/18 06:07 Chloride 102.7 mmol/L (98-107) 08/02/18 06:07 Carbon Dioxide 22 mmol/L (22-30) 08/02/18 06:07 15 mmol/L 08/02/18 06:07 BUN 12 mg/dL (9-20) 08/02/18 06:07 1.0 mg/dL (0.8-1.5) 08/02/18 06:07 Estimated GFR > 60 ml/min 08/02/18 06:07 12 % 08/02/18 06:07 Glucose 108 mg/dL (75-100) H 08/02/18 06:07 POC Glucose 173 (70-105) H 08/04/18 16:19 Lactic Acid 0.80 mmol/L (0.7-2.0) 07/31/18 16:30 Calcium 8.4 mg/dL (8.4-10.2) 08/02/18 06:07 Magnesium 1.90 mg/dL (1.7-2.3) 07/31/18 16:30 0.30 mg/dL (0.1-1.2) 08/02/18 06:07 AST 41 units/L (5-40) H 08/02/18 06:07 ALT 20 units/L (7-56) 08/02/18 06:07 58 units/L (35-129) 08/02/18 06:07 6.4 g/dL (6.3-8.2) 08/02/18 06:07 3.4 g/dL (3.9-5) L 08/02/18 06:07 1.1 % 08/02/18 06:07 Triglycerides 159 mg/dL (2-149) H 08/02/18 06:07 Cholesterol 143 mg/dL (50-199) 08/02/18 06:07 62 mg/dL (50-130) 08/02/18 06:07 61 mg/dL (40-59) H 08/02/18 06:07 2.34 % 08/02/18 06:07 41 units/L (13-60) 07/31/18 17:30 Yellow (Yellow) 07/31/18 Unknown Clear (Clear) 07/31/18 Unknown 8.0 (5.0-7.0) H 07/31/18 Unknown Ur Specific [place] 1.056 (1.003-1.030) H 07/31/18 Unknown <15 mg/dl mg/dL (Negative) 07/31/18 Unknown Neg mg/dL (Negative) 07/31/18 Unknown Tr mg/dL (Negative) 07/31/18 Unknown Neg (Negative) 07/31/18 Unknown Neg (Negative) 07/31/18 Unknown Neg (Negative) 07/31/18 Unknown < 2.0 mg/dL (<2.0) 07/31/18 Unknown Ur Leukocyte Esterase Neg (Negative) 07/31/18 Unknown < 1.0 /HPF (0.0-6.0) 07/31/18 Unknown 2.0 /HPF (0.0-6.0) 07/31/18 Unknown U Epithel Cells (Auto) 4.0 /HPF (0-13.0) 07/31/18 Unknown Presumptive negative 07/31/18 Unknown Presumptive negative 07/31/18 Unknown Ur Barbiturates Screen Presumptive negative 07/31/18 Unknown Ur Phencyclidine Scrn Presumptive negative 07/31/18 Unknown Ur Amphetamines Screen Presumptive negative 07/31/18 Unknown U Benzodiazepines Scrn Presumptive negative 07/31/18 Unknown Presumptive positive 07/31/18 Unknown U Marijuana (THC) Screen Presumptive positive 07/31/18 Unknown Disclamer 07/31/18 Unknown Plasma/Serum Alcohol 0.03 % (0-0.07) 07/31/18 13:53 Blood Type B POSITIVE 07/31/18 16:30 JOY Antibody Screen Negative 07/31/18 16:30 Crossmatch See Detail 07/31/18 16:30 Active Medications - Current Medications Current Medications: Generic Name Dose Route Start Last Admin Trade Name Freq PRN Reason Stop Dose Admin Acetaminophen 650 mg 07/31/18 18:06 Tylenol PO Q4H PRN Pain, Mild (1-3) Atorvastatin Calcium 40 mg 07/31/18 22:00 08/03/18 22:25 Lipitor PO 40 mg QHS ROSY Administration Bisacodyl 10 mg 07/31/18 18:06 Dulcolax [place] QDAY PRN Constipation Dextrose 50 ml 07/31/18 23:43 D50w (25gm) Syringe IV PRN PRN Hypoglycemia Dicyclomine HCl 20 mg 07/31/18 18:08 08/02/18 23:47 Bentyl PO 20 mg QID PRN Administration abdominal pain Insulin Human Lispro 0 unit 08/01/18 07:30 08/04/18 17:14 Humalog SUB-Q 2 unit ACHS ROSY Administration Protocol Lorazepam 1 mg 07/31/18 18:08 08/03/18 22:26 Ativan PO 1 mg BID PRN Administration Agitation Lorazepam 2 mg 07/31/18 20:56 Ativan IV Q1HR PRN CIWA-Ar 8-15 Magnesium Hydroxide 30 ml 07/31/18 18:06 Milk Of Magnesia PO Q4H PRN Constipation Metoclopramide HCl 10 mg 07/31/18 18:06 Reglan PO Q6H PRN Nausea And Vomiting Multivitamins/Minerals 1 each 08/01/18 10:00 08/04/18 09:13 Theragran-M Tab PO 1 each QDAY ROSY Administration Ondansetron HCl 4 mg 07/31/18 18:06 Zofran IV Q8H PRN Nausea And Vomiting Pantoprazole Sodium 40 mg 08/02/18 22:00 08/04/18 09:13 Protonix PO 40 mg BID ROSY Administration Promethazine HCl 25 mg 07/31/18 18:06 Phenergan [place] Q6H PRN Nausea And Vomiting Promethazine HCl 25 mg 07/31/18 18:08 Phenergan PO Q6HR PRN Nausea Sodium Chloride 10 ml 07/31/18 18:06 08/01/18 21:43 Sodium Chloride Flush Syringe 10 Ml IV 10 ml PRN PRN Administration LINE FLUSH Sucralfate 1 gm 08/02/18 16:30 08/04/18 17:14 Carafate PO 1 gm ACHS ROSY Administration Nutrition/Malnutrition Assess - Dietary Evaluation Nutrition/Malnutrition Findings: Nutrition Notes Start: 08/02/18 15:22 Freq: Status: Active Protocol: Document 08/04/18 15:49 RM (Rec: 08/04/18 15:53 RM [id number]) Nutrition Notes Initial or Follow up Reassessment Current Diagnosis Stroke Other Pertinent Diagnosis GI bleed, Hx alcohol abuse, Acute gastritis Current Diet GI soft w/Ensure Clear 1 daily Labs/Tests No recent labs Pertinent Medications Reviewed Height 5 ft 7 in Weight 73.6 kg [place] Body Weight (kg) 67.27 BMI 25.4 Subjective/Other Information Pt stated that [employer] his appetite was "so so" and he ate 1 meal daily X 2-3 weeks. Stated his appetite is better now and he eats 100% of his meals. Also stated that he drinks the Ensure Clear 1 daily. No temporal or orbital wasting . Percent of energy/protein needs met: 100%/100% Burn Absent Trauma Absent #1 Nutrition Diagnosis Inadequate oral intake As Evidenced by Signs and Symptoms pt meeting 100% of calorie and protein needs Diagnosis Progress(for reassessment Resolved documentation) Is patient on ventilator? No Is Patient Ambulatory and/or Out of Bed Yes REE-([facility]-ambulatory/OOB) [ 1988.519 [id number].[email or web address]] Calculation Used for Recommendations [facility] Additional Notes Protein Needs: 75-90g (1-1.2g/ kg) Fluid Needs: 1 ml/kcal Nutrition Intervention Add Supplement/Snack (indicate name/kcal Ensure Clear 1 daily /protein ) Provides kCal: 240 Provides Protein (gm) 8 Goal #1 Continue to meet at least 75% of calorie and protein needs via PO and ONS intakes Anticipated Discharge Needs: GI soft diet Revisit per MD consult or patient Sign Off request:
[2018-08-05] MEDS: PERCOCET 5/325 PO PRN ×2 (02:57→09:52)
--- NOTE | 2018-08-05 07:32 | Discharge Summary ---
Providers - Providers Date of Admission: 07/31/18 18:06 Date of discharge: 08/05/18 Attending physician: JENY DORAN 07/31/18 16:14 Consult to Physician [CONS] Stat Comment: DR WINTER CHOI W/DR SCHMIDT @[id number] Consulting Provider: LUIS SCHMIDT Physician Instructions: Reason For Exam: gi bleed 07/31/18 16:19 Consult to Physician [CONS] Urgent Comment: Consulting Provider: TONA GARAY Physician Instructions: Reason For Exam: NEURO SYMPTOMS 07/31/18 18:06 Occupational Therapy Evaluate and Treat [CONS] Routine Comment: Reason For Exam: Neuro deficits Physical Therapy Evaluation and Treat [CONS] Routine Comment: Reason For Exam: Neuro deficits 07/31/18 18:07 Speech Therapy Evaluation and Treat [CONS] Routine Reason For Exam: swallow eval 08/01/18 07:00 Consult to Physician [CONS] Routine Comment: Consulting Provider: SARITA STOELO Physician Instructions: Reason For Exam: cva [facility] Reason for admission: Melena,Rt sided weakness Condition: Stable Pertinent studies: Statin ,Neurology evaluated the patient, MRI brain unremarkable MRA; normal study Echocardiogram; normal ejection fraction, no shunt Carotid Doppler; no significant stenosis Hospital course: 53 YO Male with HTN, Diverticulosis, Hemorrhoids, DM, OA, Gout, Nicotine Dependence, Polysubstance Abuse, ETOH Dependence presents to ED for evaluation multiple black tarry stools and right-sided weakness. Patient initially evaluated, admitted to the hospital, symptomatically managed Stroke protocol initiated to rule out acute CVA, not a candidate for TPA, neuro workup is negative, stroke ruled out Patient was evaluated by neurologist, advised MRI cervical spine, which showed chronic spinal osteoarthritis at C6 to C7 level, Also evaluated by a second neurologist, felt this was chronic as patient had similar findings on the CT scan of the cervical spine in April 2018 Patient was evaluation by GI, underwent EGD, findings as mentioned below Patient received physical therapy and occupational therapy, and no new neurological symptoms since admission Patient had right-sided weakness for the last 4-5 months., Physical therapy recommended cane, and home PT [no neurosurgical services in the hospital, as patient's symptoms are chronic]Neurosurgery evaluation recommended upon discharge Patient is comfortable in no new complaints, Vital signs reviewed Physical examination at discharge did not show any new changes Discharge diagnosis and management; --Possible CVA Protocol: Acute CVA ruled out Not a candidate for TPA, no aspirin in view of GI bleeding duodenal ulcer and gastritis Statin ,Neurology evaluated the patient, neuro workup negative CVA ruled out --Chronic spinal osteoarthritis at C6 to C7; Patient has chronic neck problems for many months Neurology advised MRI cervical spine,MRI cervical spine findings reviewed Dr. Gianni Cassidy advised IV Decadron, neurosurgery consult inpatient versus outpatient Neurosurgery service is not available, as patient symptoms are chronic, with no new neurological symptoms Recommend outpatient neurosurgery evaluation upon discharge I discussed with neurologist Dr. Sánchez,who Reviewed the MRI with the radio logist, MRI does not show spinal cord edema mild spinal stenosis is not a neuro surgical candidate,No need for steroids which were discontinued[as described bleeding due to duodenal ulcer] Patient tolerating physical therapy, case management to set up. Home physical therapy At this point, as patient is ambulatory and tolerating physical therapy occupational therapy, with very minimal right-sided weakness 4-5/5 no Sensory involvement, advised patient to see orthopedic/neurosurgery as outpatient upon discharge --GI bleeding and melena ; GI evaluated the patient Status post EGD duodenoscopy and biopsy; Duodenitis/duodenal bulb ulcer/Ac gastritis; on EGD Avoid NSAIDs, PPI, follow up with GI --Ongoing tobacco use: smoking cessation , cutting patch as needed --History of alcohol use : CIWA protocol, Thiamine,folic acid, multivitamin, supportive care. --Alcohol withdrawal symptoms; closely monitor Continue CIWA protocol --DVT prophylaxis ; SCD to BLE while in bed, hold anticoagulation secondary to GI bleed. Condition discussed stable at discharge Patient would follow with primary care physician, neurologist, orthopedic/neurosurgery upon discharge Disposition: [id number] HOME UNDER HOME [facility] Time spent for discharge: 32 min Core Measure Documentation - Palliative Care Palliative Care/ Comfort Measures: Not Applicable - Core Measures Any of the following diagnoses?: none Exam - Constitutional Vitals: Temp Pulse Resp BP Pulse Ox 98.1 F 83 20 115/73 99 08/05/18 07:15 08/05/18 07:15 08/05/18 07:15 08/05/18 07:15 08/05/18 07:15 General appearance: Present: no acute distress, well-nourished - EENT Eyes: Present: PERRL, EOM intact - Neck Neck: Present: supple, normal ROM - Respiratory Respiratory effort: normal Respiratory: negative: rales, rhonchi, wheezing - Cardiovascular Rhythm: regular Heart Sounds: Present: S1 & S2 - Extremities Extremities: no ischemia, No edema - Abdominal General gastrointestinal: Present: soft, non-tender, non-distended, normal bowel sounds - Integumentary Integumentary: Present: clear, warm - Musculoskeletal Musculoskeletal: right sided weakness (mild weakness) - Psychiatric Psychiatric: appropriate mood/affect, cooperative - Neurologic Neurologic: moves all extremities, gait normal Plan Activity: advance as tolerated, fall precautions Diet: diabetic Special Instructions: physical therapy Additional Instructions: Advised to see private neurosurgeon, neurologist and GI. No NSAID group of pain medications Follow up with: ENDER REESE MD [Primary Care Provider] - 3-5 Days BETH ROJAS MD [Staff Physician] - 7 Days ZORAN CATHERINE MD [Staff Physician] - 7 Days LUIS SCHMIDT MD [Staff Physician] - 7 Days Prescriptions: oxyCODONE /ACETAMINOPHEN [Percocet 5/325 mg] 1 tab PO Q12H PRN #10 tablet PRN Reason: Pain, Moderate (4-6) Pantoprazole [Protonix TAB] 40 mg PO BID #30 tablet
[2018-08-05] MEDS: THERAGRAN-M Tab PO SCH (09:40)
[2018-08-05] MEDS: HumaLOG SUB-Q SCH ×2 (09:40→13:09)
[2018-08-05] MEDS: PROTONIX PO SCH (09:40)
[2018-08-05] MEDS: CARAFATE PO SCH ×2 (09:40→13:23)
[2018-08-05 16:01] VITALS: BP 121/72
== END 2018-08-05 16:57 | disposition home health service (06) | DRG 378 ==
LOC: ED 13:21 → IMCU 18:06 → 4A 08-01 11:20
PROVIDERS: ADMIT Internal Medicine; ATTEND Internal Medicine
PROC: 30233N1 Transfusion of Nonautologous Red Blood Cells into Peripheral Vein, Percutaneous Approach (ICD-10-PCS; 2018-07-31)
PROC: 0DB78ZX Excision of Stomach, Pylorus, Via Natural or Artificial Opening Endoscopic, Diagnostic (ICD-10-PCS; principal; 2018-08-01)
DX: K26.4 Chronic or unspecified duodenal ulcer with hemorrhage (principal); F17.213 Nicotine dependence, cigarettes, with withdrawal; I10 Essential (primary) hypertension; K29.81 Duodenitis with bleeding; E11.9 Type 2 diabetes mellitus without complications; M19.90 Unspecified osteoarthritis, unspecified site; F10.20 Alcohol dependence, uncomplicated; F19.10 Other psychoactive substance abuse, uncomplicated; M48.00 Spinal stenosis, site unspecified; M10.9 Gout, unspecified; K29.00 Acute gastritis without bleeding; Z71.6 Tobacco abuse counseling; Z88.5 Allergy status to narcotic agent; Z79.899 Other long term (current) drug therapy
CPT/HCPCS: 36415; 70450; 70544; 70551; 72141; 74177; 80048; 80053; 80061; 80307; 80320; 81001; 82140; 82271; 82962; 83690; 83735; 85025; 85027; 85610; 85730; 86850; 86900; 86901; 86920; 88305; 88342; 93005; 93010; 93306; 93880; 99406; G0378; A9270-GY; A9577; C9113; G0480; J1100; J1170; J1815; J2060; J2704; J3010; J3411; J7030; J7040; J7050; P9016; Q9967